=== PATIENT | male | born 1970 | race Caucasian/White ===

== ENCOUNTER 2017-10-21 09:36 | Emergency (ER) | payer OTHER ==
[2017-10-21 11:00] LABS: #Eosinphils 0.1 thou/uL (0.0-0.7); #Lymphocytes 1.1 thou/uL (1.20-3.40); #Monocytes 0.9 thou/uL (0.11-0.59); #Neutrophils 4.4 thou/uL (1.40-6.50); %Basophils 0.4 % (0.0-1.0); %Eosinophils 1.2 % (0.0-10.0); %Lymphocytes 16.8 % (21.0-51.0); %Monocytes 13.4 % (0.0-10.0); %Neutrophils 68.3 % (42.0-75.0); Hemoglobin 15.3 g/dL (14.0-18.0); Mean Corpuscular HGB CONC 34.8 g/dL (32.0-36.0); Mean Corpuscular Hemoglobin 33.4 pg (27.0-31.0); Mean Corpuscular Volume 95.9 fl (80.0-94.0); Mean Platelet Volume 7.9 fL (7.4-10.4); Platelet Count 135 thou/uL (130-400); RBC Distribution Width 12.4 % (11.5-14.5); Red Blood Cell (RBC) Count 4.59 mill/uL (4.70-6.10); White Blood Cell (WBC) Count 6.5 thou/uL (4.8-10.8)
[2017-10-21 11:23] LABS: ALT (SGPT) 24 U/L (8-55); AST (SGOT) 30 U/L (5-34); Albumin 4.1 g/dL (3.5-5.0); Alkaline Phosphatase 123 U/L (40-150); Anion Gap 14 mmol/L (10-20); BUN (Urea Nitrogen) 7 mg/dL (8.9-20.6); Bilirubin, Total 0.9 mg/dL (0.2-1.2); Calc. Creatinine Clearance 0 mL/min (70-130); Calcium 8.8 mg/dL (7.8-10.44); Carbon Dioxide 26 mmol/L (22-29); Chloride 90 mmol/L (98-107); Estimated GFR-MDRD Greater than 90; Globulin 2.4 g/dL (2.4-3.5); Glucose 106 mg/dL (70-105); Potassium 3.9 mmol/L (3.5-5.1); Protein, Total 6.5 g/dL (6.0-8.3); Sodium 126 mmol/L (136-145)
== END 2017-10-21 12:45 | disposition home or self-care (01) ==
LOC: ERS 09:36
DX: R21 Rash and other nonspecific skin eruption (principal); E87.1 Hypo-osmolality and hyponatremia; E11.9 Type 2 diabetes mellitus without complications; I10 Essential (primary) hypertension; F31.9 Bipolar disorder, unspecified; Z79.899 Other long term (current) drug therapy; Z79.84 Long term (current) use of oral hypoglycemic drugs; Z79.4 Long term (current) use of insulin
CPT/HCPCS: 36415; 80053; 85025; 99283

== ENCOUNTER 2017-11-16 05:14 | Emergency (ER) | payer OTHER | END 2017-11-16 05:56 | disposition home or self-care (01) | LOC: ERS 05:14 | DX: Z00.00 Encounter for general adult medical examination without abnormal findings (principal); E11.9 Type 2 diabetes mellitus without complications; I10 Essential (primary) hypertension; F79 Unspecified intellectual disabilities; F31.9 Bipolar disorder, unspecified; Z79.899 Other long term (current) drug therapy; Z79.4 Long term (current) use of insulin | CPT/HCPCS: 99281 ==

== ENCOUNTER 2018-01-02 12:37 | Inpatient (IN) | payer OTHER ==
[2018-01-02 13:23] LABS: #Basophils 0.1 thou/uL (0.0-0.2); #Monocytes 0.6 thou/uL (0.11-0.59); #Neutrophils 4.3 thou/uL (1.40-6.50); %Basophils 1.1 % (0.0-1.0); %Eosinophils 0.6 % (0.0-10.0); %Lymphocytes 17.5 % (21.0-51.0); %Monocytes 9.2 % (0.0-10.0); %Neutrophils 71.6 % (42.0-75.0); Mean Corpuscular HGB CONC 35.9 g/dL (32.0-36.0); Mean Corpuscular Hemoglobin 33.8 pg (27.0-31.0); Mean Corpuscular Volume 94.2 fL (78.0-98.0); Mean Platelet Volume 7.9 fL (7.4-10.4); Platelet Count 123 thou/uL (130-400); RBC Distribution Width 11.9 % (11.5-14.5); Red Blood Cell (RBC) Count 4.15 mill/uL (4.70-6.10)
[2018-01-02 13:44] LABS: ALT (SGPT) 23 U/L (8-55); AST (SGOT) 40 U/L (5-34); Albumin 3.8 g/dL (3.5-5.0); Alkaline Phosphatase 92 U/L (40-150); Anion Gap 13 mmol/L (10-20); BUN (Urea Nitrogen) 6 mg/dL (8.9-20.6); Bilirubin, Total 0.5 mg/dL (0.2-1.2); Calc. Creatinine Clearance 0 mL/min (70-130); Calcium 8.4 mg/dL (7.8-10.44); Carbon Dioxide 23 mmol/L (22-29); Chloride 86 mmol/L (98-107); Estimated GFR-MDRD Greater than 90; Glucose 99 mg/dL (70-105); Potassium 4.2 mmol/L (3.5-5.1); Protein, Total 5.8 g/dL (6.0-8.3)
[2018-01-02 13:47] LABS: Sodium 118 mmol/L (136-145)
--- NOTE | 2018-01-02 15:43 | HP ---
PRIMARY CARE PHYSICIAN: [place] call admission from [place]. His primary care physician is Dr. Dozier. REASON FOR ADMISSION: Sent from care home for severe hyponatremia. HISTORY OF PRESENT ILLNESS: A 47-year-old male who has underlying history of diabetes type 2, hypert ension, as well as underlying psychiatric problem who had routine blood test done by primary care rocio torres and patient was found with hypoglycemia, hyponatremia and that is why patient was sent to [facility] room for evaluation. Patient has caregiver with him who provides history. The patient does not have any history of nausea , vomiting and diarrhea. He was drinking normal amount of liquid. He did not have any seizure, but he appeared more confused at the care home. He was having difficulty speaking and he appeared incoh erent. It was not normal from his baseline and that is why the patient's primary care physician ashli sed him to go to emergency room for evaluation. Today, patient's sodium is 118. We are admitting th is patient to the medical floor for hyponatremia correction. Unfortunately, this patient has underlying psychiatric problem and he is not able to concentrate to g yasmani focused history and he is talking irrelevantly and coherently. REVIEW OF SYSTEMS: The following complete review of systems was negative, unless otherwise mentioned in the HPI or below: Constitutional: Weight loss or gain, ability to conduct usual activities. Skin: Rash, itching. Eyes: Double vision, pain. ENT/Mouth: Nose bleeding, neck stiffness, pain, tenderness. Cardiovascular: Palpitations, dyspnea on exertion, orthopnea. Respiratory: Shortness of breath, wheezing, cough, hemoptysis, fever or night sweats. Gastrointestinal: Poor appetite, abdominal pain, heartburn, nausea, vomiting, constipation, or diarr hea. Genitourinary: Urgency, frequency, dysuria, nocturia. Musculoskeletal: Pain, swelling. Neurologic/Psychiatric: Anxiety, depression. Allergy/Immunologic: Skin rash, bleeding tendency. Please see my HPI for pertinent positive and negative. All other review of systems reviewed and nega tive except as mentioned in the HPI. Above mentioned review of systems is not reliable due to underl leo psychiatric problem and cognitive status. PAST MEDICAL HISTORY: Diabetes type 2 on insulin, hypertension, chronic pancreatitis, mental retarda tion. PAST SURGICAL HISTORY: Reviewed and negative. PAST PSYCHIATRIC HISTORY: Bipolar disorder, intermittent explosive disorder. SOCIAL HISTORY: Patient lives in a care home. No history of tobacco, alcohol or illicit drug abuse . FAMILY HISTORY: No strong family history of premature coronary artery disease, stroke or cancer. ALLERGIES: No known drug allergy. CURRENT HOME MEDICATIONS: Depakote delayed release 500 mg twice daily, folic acid 1 mg p.o. daily, L antus 12 units subcu in the morning and 40 units at bedtime, vitamin D3 5000 unit p.o. daily, risperi done 2 mg p.o. at bedtime, NovoLog insulin 4 units 3 times daily, Cogentin 1 mg p.o. twice daily, met formin 1000 mg twice daily, Creon 1 capsule 3 times daily, lorazepam 2 mg q.6 hours, lisinopril 10 mg p.o. daily, Oxtellar XR 600 mg p.o. twice daily. EMERGENCY ROOM COURSE: Patient is getting IV fluid. PHYSICAL EXAMINATION: VITAL SIGNS: On arrival, blood pressure 142/88, pulse 74, respiratory rate 16, temperature 97.7, sat uration 97% on room air, weight 62.2 kilograms. GENERAL: Patient is currently impulsive, has slow speech. No obvious acute distress. HEAD: Normocephalic, atraumatic. EYES: Pupils are round and reactive to light. Extraocular muscle intact. ENT: Oropharynx within normal limits. Moist mucous membranes. No oral lesion, no pharyngeal erythe ma, no exudate. NECK: Supple, no JVD, no thyromegaly, no carotid bruit, no jugular venous distention. LUNGS: Clear to auscultation without any rhonchi or rales. CARDIAC: S1 and S2 regular. No murmur, no gallop, no rub. ABDOMEN: Soft, bowel sounds present, nontender, nondistended. No organomegaly, no mass, no suprapub ic tenderness. BACK: Examination unremarkable, no CVA tenderness. EXTREMITIES: Upper extremity passive movements of all joints are normal. Lower extremities: No andrew ma. Good peripheral pulsation, no calf tenderness. SKIN: No skin rash. HEMATOLOGICAL SYSTEM: No lymphadenopathy. PSYCHIATRIC: Anxious affect, impulsive. NEUROLOGIC: Grossly nonfocal examination. Patient is moving all four limbs. Speech is pressurized. SIGNIFICANT LABORATORY DATA: CBC: WBC 6.0, hemoglobin 14.0, platelet 123. BMP: Sodium 118, potass ium 4.2, chloride 86, carbon dioxide 23, anion gap 13, BUN 6, creatinine 0.68, glucose 99, calcium 8. 4. LFT: Protein 5.8, albumin 3.8, AST 40, ALT 23. ASSESSMENT AND PLAN/IMPRESSION: 1. Symptomatic hyponatremia. The patient will be admitted to medical floor. He has both sodium and chloride low, both in the same direction. At this point, we will try to give him NS at 100 mL per h our and we will repeat BMP tomorrow. We will monitor sodium every 4 hourly. If sodium does not impr ove with IV fluid, then we will consider a Nephrology evaluation. We will check urine sodium, urine creatinine, urine protein, urine osmolality, plasma osmolarity, TSH and random cortisol as a part of workup. 2. Hypoglycemia associated with diabetes type 2. Currently, patient's blood sugar runs slow. We wi ll hold on his Lantus insulin as well as metformin. We will only cover with Humalog insulin as per s liding scale. We will provide diabetic diet. 3. Anxiety, depression, bipolar disorder. We will continue his psychiatric medications, benztropine 1 mg twice daily, Depakote ER 500 mg twice daily, risperidone 2 mg p.o. at bedtime, Ativan 2 mg p.o. q.6 hourly, Cogentin 1 mg twice daily. 4. Diabetes type 2. As mentioned above because of low blood pressure, we are holding his Lantus ins ulin and metformin and we will start when blood sugar permits. 5. Hypertension. We will continue with lisinopril 10 mg p.o. daily. 6. Deep venous thrombosis prophylaxis, Lovenox 40 mg subcu daily. We will monitor platelet count. 7. Gastrointestinal prophylaxis; Pepcid 20 mg p.o. b.i.d. 8. Chronic pancreatitis. We will continue pancrease DR 1 capsule p.o. t.i.d. with meal. CODE STATUS: The patient is FULL CODE. Patient does not have any surrogate decision maker at this p oint. Disposition plan based on clinical course. We are expecting patient's stay in hospital more than 2 m idnights. Plan of care discussed with the patient and patient's java scala developer at bedside.
[2018-01-02] MEDS ORDERED: Lorazepam 1 MG TAB ONE (17:30)
[2018-01-02] MEDS ORDERED: Loperamide HCl 2 MG CAP PO PRN (18:49)
[2018-01-02] MEDS ORDERED: HumaLOG 300 UNITS/3 ML VIAL SC PRN (18:49)
[2018-01-02] MEDS ORDERED: Ondansetron ODT 4 MG TAB PO PRN (18:49)
[2018-01-02] MEDS ORDERED: HYDROcodone/Acetaminophen 5/325 mg Tablet PO PRN (18:49)
[2018-01-02] MEDS ORDERED: Mag-Al 1200 mg/1200 mg/30 ML UDCUP PO PRN (18:49)
[2018-01-02] MEDS ORDERED: Sodium Chloride 0.65% Nasal 44 ML BOT EA NARE PRN (18:49)
[2018-01-02] MEDS ORDERED: Labetalol HCl 100 MG/20 ML VIAL SLOW IVP PRN (18:49)
[2018-01-02] MEDS ORDERED: Diabetic Tussin 200 MG/10 ML UDCUP PO PRN (18:49)
[2018-01-02] MEDS ORDERED: Loratadine 10 MG TAB PO PRN (18:49)
[2018-01-02] MEDS ORDERED: Ondansetron HCl/PF 4 MG/2 ML Vial IVP PRN (18:49)
[2018-01-02] MEDS ORDERED: Milk Of Magnesia 30 ML UDCUP PO PRN (18:49)
[2018-01-02] MEDS ORDERED: Senokot 8.6 MG TAB PO PRN (18:49)
[2018-01-02] MEDS ORDERED: Hydrocerin (Eucerin) Cream 120 gm Jar TOP PRN (18:49)
[2018-01-02] MEDS ORDERED: Acetaminophen 325 MG TAB PO PRN (18:49)
[2018-01-02] MEDS ORDERED: Artificial Tears 18 DROP/0.9 ML EA EYE PRN (18:49)
[2018-01-02] MEDS ORDERED: Dextrose 5% in Water 1,000 ML IV PRN (18:49)
[2018-01-02] MEDS ORDERED: hydrALAZINE 20 MG/ML VIAL SLOW IVP PRN (18:49)
[2018-01-02] MEDS ORDERED: Chloraseptic Spray 180 ml Bottle PO PRN (18:49)
[2018-01-02] MEDS ORDERED: Dextrose 50% Abboject 50 ML SYRINGE SLOW IVP PRN (18:49)
[2018-01-02] MEDS ORDERED: Pancrelipase DR 12000 1 CAP PO SCH (19:15)
[2018-01-02 19:21] LABS: Osmolality, Serum 247 mOsm/kg (280-295)
[2018-01-02 19:30] LABS: Thyroid Stimulating Hormone 1.4338 uIU/mL (0.35-4.94)
[2018-01-02 20:28] LABS: Bilirubin Negative (Negative); Blood, Urine Negative (Negative); Clarity CLEAR (Clear); Glucose, Urine (Dipstick) 250 mg/dL (Negative); Leukocyte Negative (Negative); Nitrite Negative (Negative); Protein, Urine (Dipstick) Negative (Neg-Trace); Specific Gravity, Urine 1.006 (1.002-1.036); Urobilinogen 0.2 mg/dL (0.2-1.0); pH, Urine 7.5 (5.0-9.0)
[2018-01-02 20:33] LABS: Osmolality, Urine 175 mOsm/kg (300-900)
[2018-01-02 20:34] LABS: Bacteria/HPF None Seen HPF (None Seen); Hyaline Casts/LPF 0-3 HYALINE CAST LPF (0-3 Hyaline); RBC/HPF 0-3 HPF (0-3); Squamous Epithelial None Seen HPF (0-3); WBC/HPF None Seen HPF (0-3)
[2018-01-02] MEDS: Sodium Chloride 0.9% 1,000 ML IV SCH ×2 (20:46→23:16)
[2018-01-02] MEDS: Benztropine 1 MG TAB PO SCH (20:48)
[2018-01-02] MEDS: Famotidine 20 MG TAB PO SCH (20:48)
[2018-01-02] MEDS: Divalproex Sodium 250 MG (DR) TAB PO SCH (20:48)
[2018-01-02] MEDS ORDERED: risperiDONE 1 MG TAB PO SCH (21:00)
[2018-01-02] MEDS: Zolpidem Tartrate 5 MG TAB PO PRN ×2 (21:19→22:32)
[2018-01-02 22:37] LABS: Sodium, Urine 51 mmol/L (Not Available)
[2018-01-03 05:34] LABS: ALT (SGPT) 23 U/L (8-55); AST (SGOT) 34 U/L (5-34); Albumin 3.9 g/dL (3.5-5.0); Alkaline Phosphatase 151 U/L (40-150); Anion Gap 13 mmol/L (10-20); BUN (Urea Nitrogen) 5 mg/dL (8.9-20.6); Bilirubin, Total 0.4 mg/dL (0.2-1.2); Calc. Creatinine Clearance 136 mL/min (70-130); Carbon Dioxide 23 mmol/L (22-29); Chloride 86 mmol/L (98-107); Estimated GFR-MDRD Greater than 90; Globulin 2.3 g/dL (2.4-3.5); Glucose 209 mg/dL (70-105); Potassium 4.2 mmol/L (3.5-5.1); Protein, Total 6.2 g/dL (6.0-8.3)
[2018-01-03 05:38] LABS: Sodium 118 mmol/L (136-145)
[2018-01-03 06:36] LABS: Band 2 % (5-11); Eosinophils 2 % (0-10); Hemoglobin 13.9 g/dL (14.0-18.0); Lymphocytes 21 % (21-51); MDiff Complete? YES; Mean Corpuscular HGB CONC 35.1 g/dL (32.0-36.0); Mean Corpuscular Hemoglobin 33.4 pg (27.0-31.0); Mean Corpuscular Volume 95.4 fL (78.0-98.0); Monocytes 16 % (0-10); Neutrophil 58 % (42-75); PLT Morphology Comment Appears Decreased; Platelet Count 115 thou/uL (130-400); RBC Distribution Width 12.1 % (11.5-14.5); RBC Morphology Normal; Reactive Lymphocytes 1 % (0-10); Red Blood Cell (RBC) Count 4.15 mill/uL (4.70-6.10); White Blood Cell (WBC) Count 4.4 thou/uL (4.8-10.8)
[2018-01-03] MEDS: Sodium Chloride 0.9% 1,000 ML IV SCH (07:16)
[2018-01-03] MEDS: Lisinopril 10 MG TAB PO SCH (07:18)
[2018-01-03] MEDS: Famotidine 20 MG TAB PO SCH ×2 (07:18→21:00)
[2018-01-03] MEDS: Folic Acid 1 MG TAB PO SCH (07:18)
[2018-01-03] MEDS: Benztropine 1 MG TAB PO SCH ×2 (07:21→21:01)
[2018-01-03] MEDS: Lorazepam 1 MG TAB PO PRN ×3 (07:21→21:00)
[2018-01-03] MEDS: Divalproex Sodium 250 MG (DR) TAB PO SCH (07:21)
[2018-01-03] MEDS: Enoxaparin Sodium 40 MG/0.4 ML SYRINGE SC SCH (07:22)
[2018-01-03] MEDS ORDERED: Pancrelipase DR 12000 1 CAP PO SCH (08:00)
[2018-01-03] MEDS ORDERED: OXCARBAZEPINE 600 MG PO SCH (09:00)
[2018-01-03] MEDS ORDERED: Divalproex Sodium DR 500 MG TAB PO SCH ×2 (09:00→21:00)
[2018-01-03] MEDS ORDERED: Divalproex Sodium 250 MG (DR) TAB PO SCH (09:00)
[2018-01-03] MEDS: Pancrelipase DR 12000 1 CAP PO SCH ×3 (10:36→18:25)
[2018-01-03] MEDS: Insulin Glargine 12 UNITS in Pre-Filled Syringe 1 EACH SC SCH (10:37)
[2018-01-03] MEDS ORDERED: LIPASE PO SCH (11:30)
[2018-01-03] MEDS ORDERED: AMYLASE PO SCH (11:30)
[2018-01-03] MEDS ORDERED: PROTEASE PO SCH (11:30)
--- NOTE | 2018-01-03 11:32 | PDOC.PN ---
- Subjective Encounter Start Date: 01/03/18 Encounter Start Time: 09:00 -: old records requested/rev pt has not change in sodium, he drinks lot of plain water and ice chips - Objective Resuscitation Status: Resuscitation Status FULL:Full Resuscitation MAR Reviewed: Yes Vital Signs & Weight: Vital Signs (12 hours) Temp Pulse Resp BP BP Pulse Ox 01/03/18 08:00 97.4 F L 63 16 150/104 H 98 01/03/18 07:18 150/104 H 01/03/18 04:00 97.6 F 64 18 173/105 H 99 01/03/18 00:36 97.9 F 61 16 123/79 97 Weight Weight 160 lb 6 oz I&O: 01/02/18 01/03/18 01/04/18 06:59 06:59 06:59 Intake Total 3759 Balance 3759 Result Diagrams: 01/03/18 04:19 01/03/18 04:19 Additional Labs: Accuchecks 01/03/18 01/02/18 04:30 20:23 POC Glucose 197 H 239 H Phys Exam - Physical Examination Constitutional: NAD HEENT: PERRLA, moist MMs, sclera anicteric Neck: no JVD, supple Respiratory: no wheezing, no rales, no rhonchi Cardiovascular: RRR, no significant murmur, no rub Gastrointestinal: soft, non-tender, no distention, positive bowel sounds Musculoskeletal: no edema, pulses present Neurological: non-focal, normal sensation, moves all 4 limbs Psychiatric: normal affect Skin: no rash, normal turgor Dx/Plan (1) Hyponatremia Code(s): E87.1 - HYPO-OSMOLALITY AND HYPONATREMIA Status: Acute (2) Thrombocytopenia Code(s): D69.6 - THROMBOCYTOPENIA, UNSPECIFIED Status: Acute (3) Anxiety and depression Code(s): F41.9 - ANXIETY DISORDER, UNSPECIFIED; F32.9 - MAJOR DEPRESSIVE DISORDER, SINGLE EPISODE, UNSPECIFIED Status: Chronic (4) Bipolar disorder Code(s): F31.9 - BIPOLAR DISORDER, UNSPECIFIED Status: Chronic (5) DM type 2 (diabetes mellitus, type 2) Status: Chronic (6) Hypertension Code(s): I10 - ESSENTIAL (PRIMARY) HYPERTENSION Status: Chronic (7) Psychiatric disorder Code(s): F99 - MENTAL DISORDER, NOT OTHERWISE SPECIFIED Status: Chronic (8) Hypoglycemia Code(s): E16.2 - HYPOGLYCEMIA, UNSPECIFIED Status: Resolved - Plan cont current plan of care * suspecting psychogenic polydipsia as a cause of his hyponatremia * will need 1200 ml per day fluid restriction * will consult nephrology * medication reviewed as below * symptomatic treatment Review of Systems - Review of Systems Eyes: negative: Pain, Vision Change, Conjunctivae Inflammation, Eyelid Inflammation, Redness, Other ENT: negative: Ear Pain, Ear Discharge, Nose Pain, Nose Discharge, Nose Congestion, Mouth Pain, Mouth Swelling, Throat Pain, Throat Swelling, Other Respiratory: negative: Cough, Dry, Shortness of Breath, Hemoptysis, SOB with Excertion, Pleuritic Pain, Sputum, Wheezing Cardiovascular: negative: chest pain, palpitations, orthopnea, paroxysmal nocturnal dyspnea, edema, light headedness, other Gastrointestinal: negative: Nausea, Vomiting, Abdominal Pain, Diarrhea, Constipation, Melena, Hematochezia, Other Genitourinary: negative: Dysuria, Frequency, Incontinence, Hematuria, Retention , Other Musculoskeletal: negative: Neck Pain, Shoulder Pain, Arm Pain, Back Pain, Hand Pain, Leg Pain, Foot Pain, Other Skin: negative: Rash, Lesions, Neftaly, Bruising, Other Other: not completely reliable due to his underlying psychiatry problems - Medications/Allergies Allergies/Adverse Reactions: Allergies Allergy/AdvReac Type Severity Reaction Status Date / Time No Known Drug Allergies Allergy Verified 08/27/16 03:21 Medications: Current Medications Acetaminophen (Tylenol) 650 mg PO Q4H PRN PRN Reason: Headache/Fever or Pain Hydrocodone Bitart/Acetaminophen ([place] 5/325) 1 tab PO Q4H PRN PRN Reason: Moderate Pain (4-6) Al Hydroxide/Mg Hydroxide (Maalox) 30 ml PO Q6H PRN PRN Reason: Heartburn or Indigestion Lipase/Protease/Amylase ([place] [id number]) 2 cap PO TID-WM [facility] Last Admin: 01/03/18 10:36 Dose: 2 cap Artificial Tears (Tears Naturale) 0 drop EA EYE PRN PRN PRN Reason: Dry Eyes Benztropine Mesylate (Cogentin) 1 mg PO Q12HR [facility] Last Admin: 01/03/18 07:21 Dose: 1 mg Cholecalciferol (Vitamin D3) 5,000 units PO DAILY [facility] Last Admin: 01/03/18 07:17 Dose: 5,000 units Dextrose/Water (Dextrose 50%) 25 gm SLOW IVP PRN PRN PRN Reason: Hypoglycemia Divalproex Sodium (Depakote) 500 mg PO 0900 [facility] Stop: 01/03/18 12:00 Last Admin: 01/03/18 10:40 Dose: 500 mg Divalproex Sodium (Depakote) 1,000 mg PO 2100 [facility] Emollient Cream (Hydrocerin Cream) 0 gm TOP BIDPRN PRN PRN Reason: Dry Skin Enoxaparin Sodium (Lovenox) 40 mg SC 0900 [facility] Last Admin: 01/03/18 07:22 Dose: Not Given Famotidine (Pepcid) 20 mg PO BID [facility] Last Admin: 01/03/18 07:18 Dose: 20 mg Folic Acid (Folvite) 1 mg PO DAILY [facility] Last Admin: 01/03/18 07:18 Dose: 1 mg Glucagon (Glucagon) 1 mg IM PRN PRN PRN Reason: Hypoglycemia Guaifenesin (Robitussin Sf) 200 mg PO Q4H PRN PRN Reason: Cough Hydralazine HCl (Apresoline) 10 mg SLOW IVP Q4H PRN PRN Reason: Systolic BP > 180 Dextrose/Water (D5w) 1,000 mls @ 0 mls/hr IV .Q0M PRN; As Directed PRN Reason: Hypoglycemia Insulin Glargine 12 units/ (Miscellaneous Medication) 0.12 mls @ 0 mls/hr SC [facility] PRN Reason: As Directed Last Admin: 01/03/18 10:37 Dose: 0.12 mls Insulin Glargine 4 units/ (Device) 0.04 mls @ 0 mls/hr SC [facility] PRN Reason: As Directed Insulin Human Lispro (Humalog) 0 units SC .MODERATE SLIDING SC PRN PRN Reason: Moderate Correctional Scale Insulin Human Lispro (Humalog) 0 units SC .BEDTIME SLIDING SC PRN PRN Reason: Bedtime Correctional Scale Last Admin: 01/02/18 20:49 Dose: 2 unit Labetalol HCl (Normodyne) 20 mg SLOW IVP Q4H PRN PRN Reason: Systolic BP > 180 Lisinopril (Zestril) 10 mg PO DAILY [facility] Last Admin: 01/03/18 07:18 Dose: 10 mg Loperamide HCl (Imodium) 2 mg PO PRN PRN PRN Reason: Diarrhea/Loose Stools Loratadine (Claritin) 10 mg PO DAILYPRN PRN PRN Reason: Sinus Symptoms Lorazepam (Ativan) 2 mg PO Q4H PRN PRN Reason: Anxiety/Agitation Last Admin: 01/03/18 07:21 Dose: 2 mg Magnesium Hydroxide (Milk Of Magnesium) 30 ml PO DAILYPRN PRN PRN Reason: Constipation Ondansetron HCl (Zofran Odt) 4 mg PO Q6H PRN PRN Reason: Nausea/Vomiting Ondansetron HCl (Zofran) 4 mg IVP Q6H PRN PRN Reason: Nausea/Vomiting (Oxcarbazepine [ Oxtellar Xr] 600 Mg) Hm Med 0 each PO BID [facility] Phenol (Chloraseptic [place] 180 Ml Bot) 0 ml PO PRN PRN PRN Reason: Sore Throat Risperidone (Risperidone) 4 mg PO HS [facility] Senna (Senokot) 2 tab PO HSPRN PRN PRN Reason: Constipation Sodium Chloride ([place] Nasal [place] 0.65%) 0 ml EA NARE QIDPRN PRN PRN Reason: Nasal Congestion Zolpidem Tartrate (Ambien) 5 mg PO HSPRN PRN PRN Reason: Insomnia Last Admin: 01/02/18 22:32 Dose: 5 mg
[2018-01-03 12:25] LABS: Sodium 125 mmol/L (136-145)
[2018-01-03] MEDS: HumaLOG 300 UNITS/3 ML VIAL SC PRN (12:45)
[2018-01-03] MEDS ORDERED: Ziprasidone 20 MG VIAL IM PRN (13:32)
[2018-01-03] MEDS ORDERED: Sterile Water 10 ML VIAL FS PRN (13:40)
[2018-01-03 18:25] LABS: Sodium 130 mmol/L (136-145)
[2018-01-03] MEDS ORDERED: risperiDONE 1 MG TAB PO SCH (21:00)
[2018-01-03] MEDS ORDERED: INSULIN GLARGINE SC SCH (21:00)
[2018-01-03] MEDS: Zolpidem Tartrate 5 MG TAB PO PRN (21:46)
--- NOTE | 2018-01-03 22:03 | CON ---
DATE OF CONSULTATION: 01/03/2018 CONSULTING PHYSICIAN: Edie Eden M.D. REQUESTING PHYSICIAN: Dr. Schuster. REASON FOR CONSULTATION: Severe hyponatremia. IMPRESSION: Severe hyponatremia. 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 PLAN: 1. Restrict the free water. 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 2. Monitor sodium level closely. HISTORY OF PRESENT ILLNESS: History is that of 47-year-old gentleman sent from a assisted with sev ere hyponatremia. The patient does have significant psych history. Going by the urine chemistry, th is is likely psychogenic polydipsia. Due to the severity of this hyponatremia, decision has been jeane en to involve Renal in the management of this case. Could not get much of any comprehensive history from this patient. PAST MEDICAL HISTORY: Significant for type 2 diabetes, hypertension, chronic pancreatitis and mental retardation. MEDICATIONS: Reviewed and as documented on [facility]. ALLERGIES: No known drug allergy. FAMILY HISTORY: None significantly related to presenting illness. PHYSICAL EXAMINATION: VITAL SIGNS: Patient noted with the following vital signs. Blood pressure was 149/99, afebrile, tem perature 97.2, pulse 72, respiratory rate 16, O2 sat 98%. HEENT: Unremarkable. Moist oral mucosa. NECK: Supple. No conjunctival injection or icterus. CARDIOVASCULAR SYSTEM: First and second heart sounds were heard. RESPIRATORY SYSTEM: Clear to auscultation. DIGESTIVE SYSTEM: Revealed a benign abdomen. EXTREMITIES: No peripheral edema. SUMMARY: A 47-year-old gentleman who is here with severe hyponatremia likely in the context of psych ogenic polydipsia. Thank you for this consultation. We will follow with you.
[2018-01-04 00:56] LABS: Sodium 129 mmol/L (136-145)
[2018-01-04] MEDS: HumaLOG 300 UNITS/3 ML VIAL SC PRN ×2 (05:39→12:45)
[2018-01-04 06:13] LABS: Sodium 137 mmol/L (136-145)
[2018-01-04] MEDS: Pancrelipase DR 12000 1 CAP PO SCH ×2 (08:25→12:45)
[2018-01-04] MEDS: Benztropine 1 MG TAB PO SCH (08:26)
[2018-01-04] MEDS: Famotidine 20 MG TAB PO SCH (08:27)
[2018-01-04] MEDS: Folic Acid 1 MG TAB PO SCH (08:27)
[2018-01-04] MEDS: Lisinopril 10 MG TAB PO SCH (08:28)
[2018-01-04] MEDS: Lorazepam 1 MG TAB PO PRN (08:30)
[2018-01-04] MEDS: Insulin Glargine 12 UNITS in Pre-Filled Syringe 1 EACH SC SCH (09:38)
[2018-01-04] MEDS: Enoxaparin Sodium 40 MG/0.4 ML SYRINGE SC SCH (09:39)
--- NOTE | 2018-01-04 10:17 | PDOC.PN ---
- Subjective Encounter Start Date: 01/04/18 Encounter Start Time: 09:20 pt is walking around unit, he has improved sodium, he is baseline - Objective Resuscitation Status: Resuscitation Status FULL:Full Resuscitation MAR Reviewed: Yes Vital Signs & Weight: Vital Signs (12 hours) Temp Pulse Resp BP Pulse Ox 01/04/18 10:10 163/100 H 01/04/18 08:00 98.0 F 78 16 172/96 H 100 01/04/18 04:27 98.0 F 80 18 159/99 H 99 01/04/18 00:31 97.6 F 69 16 131/87 98 Weight Weight 160 lb 6 oz I&O: 01/03/18 01/04/18 01/05/18 06:59 06:59 06:59 Intake Total 3759 2460 Output Total 700 Balance 3759 1760 Result Diagrams: 01/03/18 04:19 01/04/18 05:52 Additional Labs: Accuchecks 01/04/18 01/03/18 01/03/18 04:36 20:10 18:06 POC Glucose 281 H 202 H 78 01/03/18 12:07 POC Glucose 360 H Phys Exam - Physical Examination Constitutional: NAD HEENT: PERRLA, moist MMs, sclera anicteric Neck: no JVD, supple Respiratory: no wheezing, no rales, no rhonchi Cardiovascular: RRR, no significant murmur, no rub Gastrointestinal: soft, non-tender, no distention, positive bowel sounds Musculoskeletal: no edema, pulses present Neurological: non-focal, normal sensation, moves all 4 limbs Lymphatic: no nodes Psychiatric: normal affect Skin: no rash, normal turgor Dx/Plan (1) Hyponatremia Code(s): E87.1 - HYPO-OSMOLALITY AND HYPONATREMIA Status: Acute (2) Thrombocytopenia Code(s): D69.6 - THROMBOCYTOPENIA, UNSPECIFIED Status: Acute (3) Anxiety and depression Code(s): F41.9 - ANXIETY DISORDER, UNSPECIFIED; F32.9 - MAJOR DEPRESSIVE DISORDER, SINGLE EPISODE, UNSPECIFIED Status: Chronic (4) Bipolar disorder Code(s): F31.9 - BIPOLAR DISORDER, UNSPECIFIED Status: Chronic (5) DM type 2 (diabetes mellitus, type 2) Status: Chronic (6) Hypertension Code(s): I10 - ESSENTIAL (PRIMARY) HYPERTENSION Status: Chronic (7) Psychiatric disorder Code(s): F99 - MENTAL DISORDER, NOT OTHERWISE SPECIFIED Status: Chronic (8) Hypoglycemia Code(s): E16.2 - HYPOGLYCEMIA, UNSPECIFIED Status: Resolved - Plan cont current plan of care * medication reviewed as below * symptomatic treatment * stable for discharge to [facility] * fluid restriction is very important to prevent readmission. Review of Systems - Review of Systems ENT: negative: Ear Pain, Ear Discharge, Nose Pain, Nose Discharge, Nose Congestion, Mouth Pain, Mouth Swelling, Throat Pain, Throat Swelling, Other Respiratory: negative: Cough, Dry, Shortness of Breath, Hemoptysis, SOB with Excertion, Pleuritic Pain, Sputum, Wheezing Cardiovascular: negative: chest pain, palpitations, orthopnea, paroxysmal nocturnal dyspnea, edema, light headedness, other Genitourinary: negative: Dysuria, Frequency, Incontinence, Hematuria, Retention , Other Musculoskeletal: negative: Neck Pain, Shoulder Pain, Arm Pain, Back Pain, Hand Pain, Leg Pain, Foot Pain, Other Other: not reliable due to her psychiatry illness - Medications/Allergies Allergies/Adverse Reactions: Allergies Allergy/AdvReac Type Severity Reaction Status Date / Time No Known Drug Allergies Allergy Verified 08/27/16 03:21 Medications: Current Medications Acetaminophen (Tylenol) 650 mg PO Q4H PRN PRN Reason: Headache/Fever or Pain Last Admin: 01/03/18 21:00 Dose: 650 mg Hydrocodone Bitart/Acetaminophen ([place] 5/325) 1 tab PO Q4H PRN PRN Reason: Moderate Pain (4-6) Al Hydroxide/Mg Hydroxide (Maalox) 30 ml PO Q6H PRN PRN Reason: Heartburn or Indigestion Lipase/Protease/Amylase ([place] [id number]) 2 cap PO TID-WM [facility] Last Admin: 01/04/18 08:25 Dose: 2 cap Artificial Tears (Tears Naturale) 0 drop EA EYE PRN PRN PRN Reason: Dry Eyes Benztropine Mesylate (Cogentin) 1 mg PO Q12HR [facility] Last Admin: 01/04/18 08:26 Dose: 1 mg Cholecalciferol (Vitamin D3) 5,000 units PO DAILY [facility] Last Admin: 01/04/18 08:26 Dose: 5,000 units Dextrose/Water (Dextrose 50%) 25 gm SLOW IVP PRN PRN PRN Reason: Hypoglycemia Divalproex Sodium (Depakote) 1,000 mg PO 2100 [facility] [place] Last Admin: 01/03/18 21:01 Dose: 1,000 mg Emollient Cream (Hydrocerin Cream) 0 gm TOP BIDPRN PRN PRN Reason: Dry Skin Enoxaparin Sodium (Lovenox) 40 mg SC 0900 [facility] Last Admin: 01/04/18 09:39 Dose: Not Given Famotidine (Pepcid) 20 mg PO BID [facility] Last Admin: 01/04/18 08:27 Dose: 20 mg Folic Acid (Folvite) 1 mg PO DAILY [facility] Last Admin: 01/04/18 08:27 Dose: 1 mg Glucagon (Glucagon) 1 mg IM PRN PRN PRN Reason: Hypoglycemia Guaifenesin (Robitussin Sf) 200 mg PO Q4H PRN PRN Reason: Cough Hydralazine HCl (Apresoline) 10 mg SLOW IVP Q4H PRN PRN Reason: Systolic BP > 180 Dextrose/Water (D5w) 1,000 mls @ 0 mls/hr IV .Q0M PRN; As Directed PRN Reason: Hypoglycemia Insulin Glargine 12 units/ (Miscellaneous Medication) 0.12 mls @ 0 mls/hr SC QAM [facility] PRN Reason: As Directed Last Admin: 01/04/18 09:38 Dose: 0.12 mls Insulin Glargine 4 units/ (Device) 0.04 mls @ 0 mls/hr SC [facility] PRN Reason: As Directed Last Admin: 01/03/18 21:02 Dose: 0.04 mls Insulin Human Lispro (Humalog) 0 units SC .MODERATE SLIDING SC PRN PRN Reason: Moderate Correctional Scale Last Admin: 01/04/18 05:39 Dose: 6 unit Insulin Human Lispro (Humalog) 0 units SC .BEDTIME SLIDING SC PRN PRN Reason: Bedtime Correctional Scale Last Admin: 01/02/18 20:49 Dose: 2 unit Labetalol HCl (Normodyne) 20 mg SLOW IVP Q4H PRN PRN Reason: Systolic BP > 180 Lisinopril (Zestril) 10 mg PO DAILY [facility] Last Admin: 01/04/18 08:28 Dose: 10 mg Loperamide HCl (Imodium) 2 mg PO PRN PRN PRN Reason: Diarrhea/Loose Stools Loratadine (Claritin) 10 mg PO DAILYPRN PRN PRN Reason: Sinus Symptoms Lorazepam (Ativan) 2 mg PO Q4H PRN PRN Reason: Anxiety/Agitation Last Admin: 01/04/18 08:30 Dose: 2 mg Magnesium Hydroxide (Milk Of Magnesium) 30 ml PO DAILYPRN PRN PRN Reason: Constipation Ondansetron HCl (Zofran Odt) 4 mg PO Q6H PRN PRN Reason: Nausea/Vomiting Ondansetron HCl (Zofran) 4 mg IVP Q6H PRN PRN Reason: Nausea/Vomiting (Oxcarbazepine [ Oxtellar Xr] 600 Mg) Hm Med 0 each PO BID [facility] Phenol (Chloraseptic [place] 180 Ml Bot) 0 ml PO PRN PRN PRN Reason: Sore Throat Risperidone (Risperidone) 4 mg PO HS [facility] Last Admin: 01/03/18 21:04 Dose: 4 mg Senna (Senokot) 2 tab PO HSPRN PRN PRN Reason: Constipation Sodium Chloride ([place] Nasal [place] 0.65%) 0 ml EA NARE QIDPRN PRN PRN Reason: Nasal Congestion Sterile Water (Water For Injection) 10 ml FS Q4H PRN PRN Reason: TO RECONSTITUTE ZIPRASIDONE Last Admin: 01/03/18 13:47 Dose: 10 ml Ziprasidone (Geodon) 20 mg IM Q4H PRN PRN Reason: Agitation Last Admin: 01/03/18 13:47 Dose: 20 mg Zolpidem Tartrate (Ambien) 5 mg PO HSPRN PRN PRN Reason: Insomnia Last Admin: 01/03/18 21:46 Dose: 5 mg
--- NOTE | 2018-01-04 11:17 | DIS ---
DATE OF ADMISSION: 01/02/2018 DATE OF DISCHARGE: 01/04/2018 PRIMARY CARE PHYSICIAN: Dr. Mark Dozier in [place] DISCHARGE DISPOSITION: [facility]P. PRIMARY DISCHARGE DIAGNOSES: 1. 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 2. Mild thrombocytopenia. 3. Hypoglycemia, on admission, resolved. SECONDARY DISCHARGE DIAGNOSES: Anxiety/depression; bipolar disorder; diabetes, type 2; hypertension; chronic pancreatitis. PRIMARY PROCEDURE/OPERATION: None. RADIOLOGICAL INVESTIGATION: None. SIGNIFICANT LABORATORY DATA: WBC 4.4, hemoglobin 13.9, platelets 115. Sodium 137, potassium 4.2, BU N 5, creatinine 0.69, calcium 9.0, AST 34, ALT 23, alkaline phosphatase 151, albumin 3.9. TSH 1.43, random cortisol 8.20. Urinalysis normal. Urine osmolality 175, urine creatinine less than 20, urine sodium 51. DISCHARGE MEDICATIONS: The patient will continue all his previous home medications, Cogentin 1 mg p. o. b.i.d., vitamin D3 10,000 units p.o. Friday, Friday, Friday, , Friday, Depakote DR 100 0 mg p.o. b.i.d., folic acid 1 mg p.o. daily, Humalog insulin 4 units subcu p.c., Lantus insulin 12 u nits in the morning and 40 units at bedtime, Creon DR 1 capsule p.o. a.c., lisinopril 10 mg p.o. myrna y, Ativan 2 mg p.o. q.i.d., metformin 1000 mg p.o. b.i.d., oxcarbazepine XR 600 mg p.o. b.i.d., rispe ridone 4 mg p.o. at bedtime. CONTRAINDICATIONS: None. CODE STATUS: FULL CODE. INPATIENT CONSULTANTS: Dr. Irizarry was following while in the hospital. TEST RESULTS PENDING ON DISCHARGE: None. ALLERGIES: No known drug allergy. DISCHARGE PLAN: Post hospital, the patient will be discharged back to [facility], and subsequently, he will follow up with primary care physician. HOSPITAL COURSE: This is a 47-year-old male, who was admitted by me on 01/02/2018. This patient opal es at [facility] and he has underlying psychiatric problem with anxiety, depression, bipolar disorder . He has a habit of drinking plenty of water and ice chips. Primary care physician did routine bloo d test, because he was more confused than his baseline and his sodium was 116 and he had in our hospi marine 118. We admitted him to medical floor. We did hyponatremia workup, and based on that, it was co nsistent with a psychogenic polydipsia. We started fluid restriction while in hospital and his sodiu m improved to normal. Today, the patient is ambulatory. He is walking around the unit. He is medic ally stable. He had hypoglycemia on admission that is also resolved. We are not making any changes in his discharge medication. He will resume all his previous medications. The patient is seen and examined at bedside today. Please see my progress note from today for furthe r detail. Total time spent providing discharge for this patient is 31 minutes.
[2018-01-04 13:30] VITALS: BP 152/86; TEMP 98.3
== END 2018-01-04 13:10 | disposition home or self-care (01) | DRG 641 ==
LOC: ERS 12:37 → T4-A 14:00
PROVIDERS: ADMIT Internal Medicine; ATTEND Internal Medicine
DX: E87.1 Hypo-osmolality and hyponatremia (principal); K86.1 Other chronic pancreatitis; D69.6 Thrombocytopenia, unspecified; F41.9 Anxiety disorder, unspecified; F32.9 Major depressive disorder, single episode, unspecified; I10 Essential (primary) hypertension; F99 Mental disorder, not otherwise specified; E11.649 Type 2 diabetes mellitus with hypoglycemia without coma; R45.1 Restlessness and agitation; F79 Unspecified intellectual disabilities; Z79.4 Long term (current) use of insulin; R63.1 Polydipsia
CPT/HCPCS: 36415; 36416; 80053; 81001; 82533; 82570; 83930; 83935; 84295; 84300; 84443; 85025; 96360; 96361; A4216; J0360; J1650; J3486

== ENCOUNTER 2018-01-12 13:11 | Emergency (ER) | payer OTHER | END 2018-01-12 14:37 | disposition home or self-care (01) | LOC: ERS 13:11 | DX: Z00.00 Encounter for general adult medical examination without abnormal findings (principal); E11.9 Type 2 diabetes mellitus without complications; I10 Essential (primary) hypertension; F31.9 Bipolar disorder, unspecified; Z79.4 Long term (current) use of insulin; Z79.899 Other long term (current) drug therapy | CPT/HCPCS: 99283 ==

== ENCOUNTER 2018-01-14 21:15 | Inpatient (IN) | payer OTHER ==
[2018-01-14 21:44] LABS: Bilirubin Negative (Negative); Blood, Urine Negative (Negative); Clarity CLEAR (Clear); Glucose, Urine (Dipstick) Negative (Negative); Leukocyte Negative (Negative); Nitrite Negative (Negative); Protein, Urine (Dipstick) Negative (Neg-Trace); Specific Gravity, Urine 1.005 (1.002-1.036); Urobilinogen 0.2 mg/dL (0.2-1.0)
[2018-01-14 21:51] LABS: #Basophils 0.1 thou/uL (0.0-0.2); #Eosinphils 0.1 thou/uL (0.0-0.7); #Lymphocytes 1.9 thou/uL (1.20-3.40); #Monocytes 0.8 thou/uL (0.11-0.59); #Neutrophils 4.3 thou/uL (1.40-6.50); %Eosinophils 1.8 % (0.0-10.0); %Lymphocytes 26.4 % (21.0-51.0); %Monocytes 10.6 % (0.0-10.0); %Neutrophils 60.3 % (42.0-75.0); Hemoglobin 14.9 g/dL (14.0-18.0); Mean Corpuscular HGB CONC 36.2 g/dL (32.0-36.0); Mean Corpuscular Hemoglobin 34.1 pg (27.0-31.0); Mean Corpuscular Volume 94.4 fL (78.0-98.0); Mean Platelet Volume 7.8 fL (7.4-10.4); Platelet Count 123 thou/uL (130-400); RBC Distribution Width 11.9 % (11.5-14.5); Red Blood Cell (RBC) Count 4.36 mill/uL (4.70-6.10); White Blood Cell (WBC) Count 7.2 thou/uL (4.8-10.8)
[2018-01-14 22:04] LABS: ALT (SGPT) 14 U/L (8-55); AST (SGOT) 22 U/L (5-34); Acetaminophen Less than 6.0 mcg/mL (10.0-30.0); Albumin 4.1 g/dL (3.5-5.0); Alcohol Less than 10 mg/dL (Less than 10); Alkaline Phosphatase 84 U/L (40-150); Anion Gap 13 mmol/L (10-20); BUN (Urea Nitrogen) 5 mg/dL (8.9-20.6); Bilirubin, Total 0.5 mg/dL (0.2-1.2); Calc. Creatinine Clearance 0 mL/min (70-130); Calcium 8.6 mg/dL (7.8-10.44); Carbon Dioxide 22 mmol/L (22-29); Chloride 87 mmol/L (98-107); Estimated GFR-MDRD Greater than 90; Globulin 2.2 g/dL (2.4-3.5); Glucose 138 mg/dL (70-105); Potassium 3.9 mmol/L (3.5-5.1); Protein, Total 6.3 g/dL (6.0-8.3); Salicylate Less than 8.0 mg/dL (15.0-30.0)
[2018-01-14 22:05] LABS: Amphetamine Not Detected (NotDetected); Barbiturates Screen Not Detected (NotDetected); Benzodiazepine Screen Detected (NotDetected); Cocaine Metabolite Screen Not Detected (NotDetected); Medtox Control Line Valid? VALID (VALID); Medtox Reader # READER 1; Methadone Not Detected (NotDetected); Methamphetamine Not Detected (NotDetected); Opiate Screen Not Detected (NotDetected); Oxycodone Screen Not Detected (NotDetected); Phencyclidine (PCP) Not Detected (NotDetected); THC/Cannabinoid Screen Not Detected (NotDetected); Tricyclic Screen Not Detected (NotDetected)
[2018-01-14 22:26] LABS: Sodium 118 mmol/L (136-145)
[2018-01-15] MEDS ORDERED: Acetaminophen 325 MG TAB PO PRN (01:01)
[2018-01-15] MEDS ORDERED: Ondansetron HCl/PF 4 MG/2 ML Vial IVP PRN (01:01)
[2018-01-15 02:03] LABS: Osmolality, Serum 244 mOsm/kg (280-295)
[2018-01-15 02:07] LABS: Anion Gap 14 mmol/L (10-20); BUN (Urea Nitrogen) 5 mg/dL (8.9-20.6); Calc. Creatinine Clearance 0 mL/min (70-130); Calcium 9.1 mg/dL (7.8-10.44); Carbon Dioxide 22 mmol/L (22-29); Chloride 88 mmol/L (98-107); Estimated GFR-MDRD Greater than 90; Glucose 106 mg/dL (70-105); Potassium 3.6 mmol/L (3.5-5.1); Sodium 120 mmol/L (136-145)
[2018-01-15] MEDS ORDERED: Dextrose 50% Abboject 50 ML SYRINGE SLOW IVP PRN (03:23)
[2018-01-15] MEDS ORDERED: Dextrose 5% in Water 1,000 ML IV PRN (03:23)
[2018-01-15 05:04] LABS: Potassium, Urine Less than 10.0 mmol/L; Sodium, Urine 65 mmol/L (Not Available)
[2018-01-15 05:14] VITALS: BMI 28.4
[2018-01-15 05:30] LABS: Osmolality, Urine 192 mOsm/kg (300-900)
[2018-01-15 06:26] LABS: #Eosinphils 0.1 thou/uL (0.0-0.7); #Lymphocytes 1.3 thou/uL (1.20-3.40); #Monocytes 0.9 thou/uL (0.11-0.59); #Neutrophils 5.3 thou/uL (1.40-6.50); %Basophils 0.4 % (0.0-1.0); %Eosinophils 1.6 % (0.0-10.0); %Lymphocytes 17.4 % (21.0-51.0); %Monocytes 11.9 % (0.0-10.0); %Neutrophils 68.7 % (42.0-75.0); Hemoglobin 14.1 g/dL (14.0-18.0); Mean Corpuscular HGB CONC 35.8 g/dL (32.0-36.0); Mean Corpuscular Hemoglobin 34.1 pg (27.0-31.0); Mean Corpuscular Volume 95.2 fL (78.0-98.0); Platelet Count 107 thou/uL (130-400); RBC Distribution Width 12.1 % (11.5-14.5); Red Blood Cell (RBC) Count 4.12 mill/uL (4.70-6.10); White Blood Cell (WBC) Count 7.6 thou/uL (4.8-10.8)
[2018-01-15 06:51] LABS: Anion Gap 15 mmol/L (10-20); BUN (Urea Nitrogen) 4 mg/dL (8.9-20.6); Calc. Creatinine Clearance 138 mL/min (70-130); Calcium 8.8 mg/dL (7.8-10.44); Carbon Dioxide 22 mmol/L (22-29); Chloride 86 mmol/L (98-107); Estimated GFR-MDRD Greater than 90; Glucose 153 mg/dL (70-105); Potassium 4.1 mmol/L (3.5-5.1)
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
[2018-01-15 06:56] LABS: Sodium 119 mmol/L (136-145)
[2018-01-15] MEDS ORDERED: LIPASE PO SCH (07:30)
[2018-01-15] MEDS ORDERED: AMYLASE PO SCH (07:30)
[2018-01-15] MEDS ORDERED: PROTEASE PO SCH (07:30)
[2018-01-15] MEDS: Enoxaparin Sodium 40 MG/0.4 ML SYRINGE SC SCH (08:11)
[2018-01-15] MEDS: risperiDONE 1 MG TAB PO SCH ×2 (08:12→19:47)
[2018-01-15] MEDS: Pancrelipase DR 12000 1 CAP PO SCH ×3 (08:12→17:34)
[2018-01-15] MEDS: OXcarbazepine 300 MG TAB PO SCH ×2 (08:12→19:47)
[2018-01-15] MEDS: Benztropine 1 MG TAB PO SCH ×2 (08:13→19:47)
[2018-01-15] MEDS: Lisinopril 10 MG TAB PO SCH (08:13)
[2018-01-15] MEDS: Divalproex Sodium DR 500 MG TAB PO SCH ×2 (08:13→19:47)
[2018-01-15] MEDS: Lorazepam 1 MG TAB PO SCH ×4 (08:13→19:46)
[2018-01-15] MEDS: HumaLOG 300 UNITS/3 ML VIAL SC PRN ×2 (11:12→17:34)
--- NOTE | 2018-01-15 11:40 | PDOC.PN ---
- Subjective Encounter Start Date: 01/15/18 Encounter Start Time: 11:30 Subjective: f/u for hyponatremia likely due to psychogenic polydipsia. No new complaint -: but states he wants to go back to a different care home after d/c. - Objective MAR Reviewed: Yes Vital Signs & Weight: Vital Signs (12 hours) Temp Pulse Resp BP Pulse Ox 01/15/18 11:37 97.6 F 92 14 140/91 H 99 01/15/18 08:00 97.2 F L 90 16 99 01/15/18 07:45 97.2 F L 90 16 145/79 H 99 01/15/18 03:23 98 Weight Weight 160 lb 9.6 oz Result Diagrams: 01/15/18 05:47 01/15/18 05:47 Additional Labs: Accuchecks 01/15/18 10:54 POC Glucose 317 H Laboratory Tests 01/14/18 01/14/18 01/14/18 21:31 21:31 21:34 Sodium Serum Osmolality 244 L* Urine Osmolality 192 L Urine Creatinine Less than 20.00 L Urine Sodium 65 01/14/18 01/15/18 21:37 01:41 Sodium 118 L* 120 L Serum Osmolality Urine Osmolality Urine Creatinine Urine Sodium EKG Reviewed by me: Yes (Tele - SR) Phys Exam - Physical Examination Constitutional: NAD HEENT: PERRLA, sclera anicteric, oral pharynx no lesions Neck: no nodes, no JVD, supple, full ROM Respiratory: no wheezing, no rales, no rhonchi, clear to auscultation bilateral S1, S2 Cardiovascular: RRR, no significant murmur, no rub, gallop Gastrointestinal: soft, non-tender, no distention, positive bowel sounds Musculoskeletal: no edema, pulses present Neurological: normal sensation, moves all 4 limbs flat affect Skin: no rash, normal turgor, cap refill <2 seconds Dx/Plan (1) Hyponatremia Code(s): E87.1 - HYPO-OSMOLALITY AND HYPONATREMIA Status: Acute Comment: Secondary to #2, fluid restriction, serial Na+ (2) Psychogenic polydipsia Code(s): R63.1 - POLYDIPSIA; F54 - [employer] W DISORD OR DIS CLASSD ELSWHR Status: Chronic Comment: Fluid restriction 1.2L/day (3) Bipolar disorder Code(s): F31.9 - BIPOLAR DISORDER, UNSPECIFIED Status: Chronic Comment: Continue Risperdal, supportive mgmt, consider [facility] evaluation (4) Hypertension Code(s): I10 - ESSENTIAL (PRIMARY) HYPERTENSION Status: Chronic Comment: Labile, resume home BP regimen, serial monitoring - Plan elementary school social worker, out of bed/ambulate, DVT proph w/SCDs Stable overall -: Continue fluid restriction 1.2L/24h -: Resume home Lantus/Metformin -: CM and MR consult -: AM lab: BMP * .
[2018-01-15 13:52] LABS: Anion Gap 15 mmol/L (10-20); BUN (Urea Nitrogen) 5 mg/dL (8.9-20.6); Calc. Creatinine Clearance 121 mL/min (70-130); Calcium 9.1 mg/dL (7.8-10.44); Carbon Dioxide 21 mmol/L (22-29); Chloride 87 mmol/L (98-107); Estimated GFR-MDRD Greater than 90; Glucose 359 mg/dL (70-105); Potassium 4.6 mmol/L (3.5-5.1)
[2018-01-15 13:54] LABS: Sodium 118 mmol/L (136-145)
[2018-01-15 15:23] LABS: Sodium 118 mmol/L (136-145)
[2018-01-15] MEDS: metFORMIN 500 MG TAB PO SCH (17:34)
[2018-01-15 19:33] LABS: Anion Gap 16 mmol/L (10-20); BUN (Urea Nitrogen) 5 mg/dL (8.9-20.6); Calc. Creatinine Clearance 119 mL/min (70-130); Calcium 9.4 mg/dL (7.8-10.44); Carbon Dioxide 20 mmol/L (22-29); Chloride 90 mmol/L (98-107); Estimated GFR-MDRD Greater than 90; Glucose 269 mg/dL (70-105); Potassium 4.2 mmol/L (3.5-5.1); Sodium 122 mmol/L (136-145)
[2018-01-15] MEDS: Insulin Glargine 4 UNITS in Pre-Filled Syringe 1 EACH SC SCH (19:46)
[2018-01-15] MEDS ORDERED: risperiDONE 1 MG TAB PO SCH (21:00)
--- NOTE | 2018-01-16 04:39 | CON ---
DATE OF CONSULTATION: 01/15/2018 CONSULTING PHYSICIAN: Dr. Edie Eden. REQUESTING PHYSICIAN: Dr. Pinzon. REASON FOR CONSULTATION: Severe hyponatremia. IMPRESSION: Severe hyponatremia. This is in the context of psychogenic polydipsia. PLAN: Fluid restriction to about 2 liters in 24 hours. This could be a little bit challenging as nnamdi velásquez has already used to drinking a lot and as his sodium level improves, we will begin to liberaliz e the p.o. intake. HISTORY OF PRESENT ILLNESS: This is a 47-year-old gentleman with mental retardation who always prese nts here with severe hyponatremia in the context of psychogenic polydipsia. The patient was recently here in the hospital with similar symptoms and after improvement of the sodium, the patient was disc harged and now the patient is back with severe hyponatremia. As a result of this, the decision has b een taken to involve [facility] in the management of this case. Patient with mental status change. PAST MEDICAL HISTORY: Significant for diabetes, hypertension, mental retardation, pancreatic calcifi cation, hypoproteinemia, psychogenic polydipsia. MEDICATIONS: Reviewed as documented on [employer]. REVIEW OF SYSTEMS: Could not be obtained given the mental status of this patient. ALLERGIES: No known drug allergies. SOCIAL HISTORY: No alcohol, no tobacco, no illicit drug use. PHYSICAL EXAMINATION: GENERAL: The patient was found to be sleepy, but arousable noted with the following vital signs. VITAL SIGNS: Afebrile with temperature 97.2, pulse 90, respiratory rate 16, O2 sat 99%, with blood p ressure 145/79. HEENT: Unremarkable. Moist oral mucosa. NECK: Supple, No conjunctival injection or icterus. CARDIOVASCULAR SYSTEM: First and second heart sounds were heard. RESPIRATORY SYSTEM: Clear to auscultation. DIGESTIVE SYSTEM: Revealed a benign abdomen with positive bowel sounds. EXTREMITIES: No peripheral edema. SKIN: No new gross rash. LYMPHATICS: No peripheral lymphadenopathy. SUMMARY: A 47-year-old gentleman with mental retardation who presented here with severe hyponatremia . Thank you for this consultation. We will follow with you.
[2018-01-16] MEDS: Enoxaparin Sodium 40 MG/0.4 ML SYRINGE SC SCH (08:32)
[2018-01-16] MEDS: OXcarbazepine 300 MG TAB PO SCH ×2 (08:32→19:57)
[2018-01-16] MEDS: metFORMIN 500 MG TAB PO SCH ×2 (08:34→17:36)
[2018-01-16] MEDS: Lorazepam 1 MG TAB PO SCH ×4 (08:34→19:57)
[2018-01-16] MEDS: Pancrelipase DR 12000 1 CAP PO SCH ×3 (08:35→17:37)
[2018-01-16] MEDS: Divalproex Sodium DR 500 MG TAB PO SCH ×2 (08:35→19:57)
[2018-01-16] MEDS: Lisinopril 10 MG TAB PO SCH (08:35)
[2018-01-16] MEDS: risperiDONE 1 MG TAB PO SCH ×2 (08:36→19:57)
[2018-01-16] MEDS: Benztropine 1 MG TAB PO SCH ×2 (08:36→19:57)
[2018-01-16] MEDS ORDERED: Insulin Glargine 12 UNITS in Pre-Filled Syringe 1 EACH SC SCH (09:00)
[2018-01-16] MEDS: HumaLOG 300 UNITS/3 ML VIAL SC PRN ×2 (11:12→17:52)
--- NOTE | 2018-01-16 16:40 | PDOC.PN ---
- Subjective Encounter Start Date: 01/16/18 Encounter Start Time: 12:30 Subjective: f/u for hyponatremia due to psychogenic polydipsia. Overall improved -: Na+ with fluid restriction. No new complaints. Tolerating regular po intake - Objective MAR Reviewed: Yes Vital Signs & Weight: Vital Signs (12 hours) Temp Pulse Resp BP BP Pulse Ox 01/16/18 12:00 97 F L 92 16 141/83 H 92 L 01/16/18 08:53 97 F L 88 16 134/80 97 01/16/18 08:35 134/80 01/16/18 08:00 97 F L 88 16 97 Weight Weight 153 lb 14.4 oz I&O: 01/15/18 01/16/18 01/17/18 06:59 06:59 06:59 Intake Total 1440 Balance 1440 Result Diagrams: 01/15/18 05:47 01/15/18 19:01 Additional Labs: Accuchecks 01/16/18 01/16/18 01/15/18 10:41 05:32 19:45 POC Glucose 353 H 217 H 246 H 01/15/18 17:25 POC Glucose 259 H Laboratory Tests 01/14/18 01/14/18 01/14/18 21:31 21:31 21:34 Sodium Serum Osmolality 244 L* Urine Osmolality 192 L Urine Creatinine Less than 20.00 L Urine Sodium 65 01/14/18 01/15/18 01/15/18 21:37 01:41 13:14 Sodium 118 L* 120 L 118 L* Serum Osmolality Urine Osmolality Urine Creatinine Urine Sodium 01/15/18 14:51 Sodium 118 L* Serum Osmolality Urine Osmolality Urine Creatinine Urine Sodium Phys Exam - Physical Examination Constitutional: NAD HEENT: PERRLA, sclera anicteric, oral pharynx no lesions Neck: no nodes, no JVD, supple, full ROM Respiratory: no wheezing, no rales, no rhonchi, clear to auscultation bilateral S1, S2 Cardiovascular: RRR, no significant murmur, no rub, gallop Gastrointestinal: soft, non-tender, no distention, positive bowel sounds Musculoskeletal: no edema, pulses present Neurological: normal sensation, moves all 4 limbs flat affect Skin: no rash, normal turgor, cap refill <2 seconds Dx/Plan (1) Hyponatremia Code(s): E87.1 - HYPO-OSMOLALITY AND HYPONATREMIA Status: Acute Comment: Secondary to #2, fluid restriction, serial Na+, improving (2) Psychogenic polydipsia Code(s): R63.1 - POLYDIPSIA; F54 - [employer] W DISORD OR DIS CLASSD ELSWHR Status: Chronic Comment: Improved with fluid restriction 2L/24h (3) Bipolar disorder Code(s): F31.9 - BIPOLAR DISORDER, UNSPECIFIED Status: Chronic Comment: Continue Risperdal, supportive mgmt, consider [facility] evaluation (4) Hypertension Code(s): I10 - ESSENTIAL (PRIMARY) HYPERTENSION Status: Chronic Comment: Labile, resume home BP regimen, serial monitoring - Plan adoption social worker, out of bed/ambulate, DVT proph w/SCDs Stable overall -: Continue mild fluid restriction -: D/C Lovenox -: Sitter 1:1 -: AM lab: BMP * CM assisting with dispo planning
--- NOTE | 2018-01-16 18:50 | PRG ---
DATE OF SERVICE: 01/16/2018 SUBJECTIVE: The patient was seen and examined. No new complaint except that the patient wants to dr ink more. Noted with the following vital signs. PHYSICAL EXAMINATION: VITAL SIGNS: Afebrile, temperature 97, pulse 92, respiratory rate of 16, O2 sat of 97%, blood pressu re 134/80. HEENT: Unremarkable. Moist oral mucosa. CARDIOVASCULAR: First and second heart sounds were heard. RESPIRATORY SYSTEM: Clear to auscultation. DIGESTIVE SYSTEM: Revealed a benign abdomen. EXTREMITIES: No peripheral edema. SKIN: No new gross rash. LYMPHATICS: No peripheral lymphadenopathy. IMPRESSION: Hyponatremia in the context of psychogenic polydipsia. PLAN: 1. We will continue with liberalized fluid restriction. 2. Sodium check stat to evaluate the degree of correction at this point. 3. Further management will be dependent on the clinical course.
[2018-01-16 19:11] LABS: Anion Gap 16 mmol/L (10-20); BUN (Urea Nitrogen) 8 mg/dL (8.9-20.6); Calc. Creatinine Clearance 124 mL/min (70-130); Calcium 9.4 mg/dL (7.8-10.44); Carbon Dioxide 27 mmol/L (22-29); Chloride 89 mmol/L (98-107); Estimated GFR-MDRD Greater than 90; Glucose 255 mg/dL (70-105); Potassium 4.7 mmol/L (3.5-5.1); Sodium 127 mmol/L (136-145)
[2018-01-16] MEDS: Insulin Glargine 4 UNITS in Pre-Filled Syringe 1 EACH SC SCH (19:58)
[2018-01-17 06:19] LABS: Anion Gap 15 mmol/L (10-20); BUN (Urea Nitrogen) 9 mg/dL (8.9-20.6); Calc. Creatinine Clearance 129 mL/min (70-130); Calcium 8.9 mg/dL (7.8-10.44); Carbon Dioxide 25 mmol/L (22-29); Chloride 90 mmol/L (98-107); Estimated GFR-MDRD Greater than 90; Glucose 209 mg/dL (70-105); Potassium 4.5 mmol/L (3.5-5.1); Sodium 125 mmol/L (136-145)
--- NOTE | 2018-01-17 08:22 | PDOC.PN ---
- Subjective Encounter Start Date: 01/17/18 Encounter Start Time: 08:20 Patient seen and examined. No new complaints. No overnight events. pt still requesting to have more fluids per day. sitter at bedside. - Objective MAR Reviewed: Yes Vital Signs & Weight: Vital Signs (12 hours) Temp Pulse Resp BP Pulse Ox 01/17/18 04:00 97.2 F L 75 14 142/83 H 99 Weight Weight 153 lb 9.6 oz I&O: 01/16/18 01/17/18 01/18/18 06:59 06:59 06:59 Intake Total 1440 480 Balance 1440 480 Result Diagrams: 01/15/18 05:47 01/17/18 05:28 Additional Labs: Accuchecks 01/17/18 01/16/18 01/16/18 06:16 19:21 17:00 POC Glucose 197 H 269 H 257 H 01/16/18 10:41 POC Glucose 353 H Phys Exam - Physical Examination Constitutional: NAD HEENT: moist MMs, sclera anicteric Neck: supple Respiratory: no wheezing, no rales Cardiovascular: RRR Gastrointestinal: soft Musculoskeletal: no edema Neurological: non-focal Deviation from normal: mentally challenged Skin: no rash Dx/Plan (1) Psychogenic polydipsia Code(s): R63.1 - POLYDIPSIA; F54 - [employer] W DISORD OR DIS CLASSD ELSWHR Status: Chronic Comment: Improved with fluid restriction 2L/24h (2) Hyponatremia Code(s): E87.1 - HYPO-OSMOLALITY AND HYPONATREMIA Status: Acute Comment: Secondary to #2, fluid restriction, serial Na+, improving (3) Bipolar disorder Code(s): F31.9 - BIPOLAR DISORDER, UNSPECIFIED Status: Chronic Comment: Continue Risperdal, supportive mgmt, consider [facility] evaluation (4) DM type 2 (diabetes mellitus, type 2) Status: Chronic (5) Hypertension Code(s): I10 - ESSENTIAL (PRIMARY) HYPERTENSION Status: Chronic Comment: Labile, resume home BP regimen, serial monitoring - Plan cont current plan of care, PT/OT, social research assistant * . continue fluid restriction Monitor Na level. f/u with nephrology. will increase AM lantus to 14 units. continue sitter. AM labs.
[2018-01-17] MEDS: Pancrelipase DR 12000 1 CAP PO SCH ×3 (09:19→18:14)
[2018-01-17] MEDS: risperiDONE 1 MG TAB PO SCH ×2 (09:19→20:54)
[2018-01-17] MEDS: Divalproex Sodium DR 500 MG TAB PO SCH ×2 (09:20→20:52)
[2018-01-17] MEDS: metFORMIN 500 MG TAB PO SCH ×2 (09:20→16:46)
[2018-01-17] MEDS: OXcarbazepine 300 MG TAB PO SCH ×2 (09:20→20:54)
[2018-01-17] MEDS: Benztropine 1 MG TAB PO SCH ×2 (09:20→20:52)
[2018-01-17] MEDS: Insulin Glargine 14 UNITS in Pre-Filled Syringe 1 EACH SC SCH (09:21)
[2018-01-17] MEDS: Lisinopril 10 MG TAB PO SCH (09:21)
[2018-01-17] MEDS: Lorazepam 1 MG TAB PO SCH ×4 (09:21→20:53)
[2018-01-17] MEDS: HumaLOG 300 UNITS/3 ML VIAL SC PRN (12:35)
[2018-01-17] MEDS: Insulin Glargine 4 UNITS in Pre-Filled Syringe 1 EACH SC SCH (20:53)
[2018-01-18 06:51] LABS: Anion Gap 15 mmol/L (10-20); BUN (Urea Nitrogen) 7 mg/dL (8.9-20.6); Calc. Creatinine Clearance 120 mL/min (70-130); Calcium 8.9 mg/dL (7.8-10.44); Carbon Dioxide 21 mmol/L (22-29); Chloride 88 mmol/L (98-107); Estimated GFR-MDRD Greater than 90; Glucose 309 mg/dL (70-105); Potassium 4.7 mmol/L (3.5-5.1)
[2018-01-18 06:59] LABS: Sodium 119 mmol/L (136-145)
[2018-01-18] MEDS: Benztropine 1 MG TAB PO SCH ×2 (08:21→20:38)
[2018-01-18] MEDS: Pancrelipase DR 12000 1 CAP PO SCH ×3 (08:21→17:45)
[2018-01-18] MEDS: metFORMIN 500 MG TAB PO SCH ×2 (08:22→17:45)
[2018-01-18] MEDS: risperiDONE 1 MG TAB PO SCH ×2 (08:22→20:40)
[2018-01-18] MEDS: Lorazepam 1 MG TAB PO SCH ×4 (08:22→20:39)
[2018-01-18] MEDS: Lisinopril 10 MG TAB PO SCH (08:22)
[2018-01-18] MEDS: OXcarbazepine 300 MG TAB PO SCH ×2 (08:22→20:39)
--- NOTE | 2018-01-18 08:22 | PDOC.PN ---
- Subjective Encounter Start Date: 01/18/18 Encounter Start Time: 08:20 No complaints. Wants more food. Wants to go to the cafeteria to eat and not stay in his room. - Objective MAR Reviewed: Yes Vital Signs & Weight: Weight Weight 153 lb 6.4 oz I&O: 01/17/18 01/18/18 01/19/18 06:59 06:59 06:59 Intake Total 480 Balance 480 Result Diagrams: 01/15/18 05:47 01/18/18 06:18 Additional Labs: Accuchecks 01/18/18 01/17/18 01/17/18 05:11 19:25 16:44 POC Glucose 274 H 194 H 87 01/17/18 11:02 POC Glucose 220 H Phys Exam - Physical Examination Constitutional: NAD Strabismus Respiratory: no wheezing, no rales, no rhonchi, clear to auscultation bilateral Cardiovascular: RRR, no significant murmur, no rub Gastrointestinal: soft, non-tender, no distention, positive bowel sounds Musculoskeletal: no edema Neurological: non-focal Deviation from normal: Spills food all over the floor. Cooperative for the most part. Dx/Plan (1) Psychogenic polydipsia Code(s): R63.1 - POLYDIPSIA; F54 - [employer] W DISORD OR DIS CLASSD ELSWHR Status: Chronic Comment: Improved with fluid restriction 2L/24h (2) Hyponatremia Code(s): E87.1 - HYPO-OSMOLALITY AND HYPONATREMIA Status: Acute Comment: Secondary to #2, fluid restriction, serial Na+, improving (3) Anxiety and depression Code(s): F41.9 - ANXIETY DISORDER, UNSPECIFIED; F32.9 - MAJOR DEPRESSIVE DISORDER, SINGLE EPISODE, UNSPECIFIED Status: Chronic (4) Bipolar disorder Code(s): F31.9 - BIPOLAR DISORDER, UNSPECIFIED Status: Chronic Comment: Continue Risperdal, supportive mgmt, consider [facility] evaluation (5) DM type 2 (diabetes mellitus, type 2) Status: Chronic (6) Hypertension Code(s): I10 - ESSENTIAL (PRIMARY) HYPERTENSION Status: Chronic Comment: Labile, resume home BP regimen, serial monitoring (7) Thrombocytopenia Code(s): D69.6 - THROMBOCYTOPENIA, UNSPECIFIED Status: Acute - Plan * Sodium is worse today. No sitter available to watch 06/01 at this time. Suspect he is having some unwitnessed water intake. Plan is to continue to fluid restrict. Will try to monitor as much as possible. * Blood sugars are still a little high. Meds adjusted yesterday. Monitor today. * Thrombocytopenia is chronic.
[2018-01-18] MEDS: Divalproex Sodium DR 500 MG TAB PO SCH ×2 (08:23→20:39)
[2018-01-18] MEDS: Insulin Glargine 14 UNITS in Pre-Filled Syringe 1 EACH SC SCH (08:23)
[2018-01-18] MEDS: HumaLOG 300 UNITS/3 ML VIAL SC PRN ×3 (08:24→17:45)
--- NOTE | 2018-01-18 19:04 | PRG ---
DATE OF SERVICE: 01/18/2018 SUBJECTIVE: The patient was seen and examined, walking up and down the hallway, demand informed diet cook. PHYSICAL EXAMINATION: VITAL SIGNS: Afebrile with temperature 97.9, pulse 85, respiratory rate 12, O2 sat 100% on room air with a blood pressure 139/93. HEENT: Unremarkable with moist oral mucosa. NECK: Supple, No conjunctival injection or icterus. CARDIOVASCULAR: First and second heart sounds were heard. RESPIRATORY: Clear to auscultation. DIGESTIVE: Revealed a benign abdomen with positive bowel sounds. EXTREMITIES: No peripheral edema. SKIN: No new gross rash. LYMPHATICS: No peripheral lymphadenopathy. LABORATORY DATA: Sodium of 119 with a blood sugar of 309, corrected sodium should be upto to 121. IMPRESSION: 1. Severe hyponatremia in the context of psychogenic polydipsia. 2. Poorly controlled diabetes. PLAN: Fluid restriction is to be enforced in this patient. However, this could be very challenging given the fact that this excessive drinking has been lifestyle of this patient, who has some mental c hallenge. In any case, we will continue to try with the fluid restriction. Improve blood sugar cont rol strongly recommended. Hopefully, the sodium will improve. This is likely to become a recurrent issue whereby patient gets discharged and drinks a lot and goes into symptomatic hyponatremia. Furth er management to be dependent on the clinical course.
[2018-01-18] MEDS: Insulin Glargine 4 UNITS in Pre-Filled Syringe 1 EACH SC SCH (20:39)
[2018-01-19 08:14] LABS: Anion Gap 16 mmol/L (10-20); BUN (Urea Nitrogen) 9 mg/dL (8.9-20.6); Calc. Creatinine Clearance 108 mL/min (70-130); Calcium 9.8 mg/dL (7.8-10.44); Carbon Dioxide 22 mmol/L (22-29); Chloride 92 mmol/L (98-107); Estimated GFR-MDRD Greater than 90; Glucose 177 mg/dL (70-105); Potassium 4.4 mmol/L (3.5-5.1); Sodium 126 mmol/L (136-145)
[2018-01-19] MEDS: Insulin Glargine 14 UNITS in Pre-Filled Syringe 1 EACH SC SCH (09:06)
[2018-01-19] MEDS: Divalproex Sodium DR 500 MG TAB PO SCH ×2 (09:06→20:38)
[2018-01-19] MEDS: Pancrelipase DR 12000 1 CAP PO SCH ×3 (09:06→17:59)
[2018-01-19] MEDS: risperiDONE 1 MG TAB PO SCH ×2 (09:07→20:39)
[2018-01-19] MEDS: Lisinopril 10 MG TAB PO SCH (09:07)
[2018-01-19] MEDS: Lorazepam 1 MG TAB PO SCH ×4 (09:07→20:38)
[2018-01-19] MEDS: Benztropine 1 MG TAB PO SCH ×2 (09:07→20:38)
[2018-01-19] MEDS: OXcarbazepine 300 MG TAB PO SCH ×2 (09:07→20:37)
[2018-01-19] MEDS: metFORMIN 500 MG TAB PO SCH ×2 (09:07→17:59)
--- NOTE | 2018-01-19 10:37 | PDOC.PN ---
- Subjective Encounter Start Date: 01/19/18 Encounter Start Time: 10:36 Doing well. Eager to leave the hospital. - Objective Vital Signs & Weight: Vital Signs (12 hours) Temp Pulse Resp BP BP BP Pulse Ox 01/19/18 09:07 134/80 01/19/18 08:02 98.2 F 82 20 140/107 H 98 01/19/18 04:00 97.4 F L 92 16 132/85 98 Weight Weight 152 lb 4.8 oz I&O: 01/18/18 01/19/18 01/20/18 06:59 06:59 06:59 Intake Total 1200 Output Total 950 Balance 250 Result Diagrams: 01/15/18 05:47 01/19/18 07:47 Additional Labs: Accuchecks 01/19/18 01/18/18 01/18/18 06:07 16:40 10:48 POC Glucose 132 H 196 H 237 H Phys Exam - Physical Examination Constitutional: NAD Respiratory: no wheezing, no rales, no rhonchi, clear to auscultation bilateral Cardiovascular: RRR, no significant murmur, no rub Gastrointestinal: soft, non-tender, no distention, positive bowel sounds Musculoskeletal: no edema Dx/Plan (1) Psychogenic polydipsia Code(s): R63.1 - POLYDIPSIA; F54 - [employer] W DISORD OR DIS CLASSD ELSWHR Status: Chronic Comment: Improved with fluid restriction 2L/24h (2) Hyponatremia Code(s): E87.1 - HYPO-OSMOLALITY AND HYPONATREMIA Status: Acute Comment: Secondary to #2, fluid restriction, serial Na+, improving (3) Anxiety and depression Code(s): F41.9 - ANXIETY DISORDER, UNSPECIFIED; F32.9 - MAJOR DEPRESSIVE DISORDER, SINGLE EPISODE, UNSPECIFIED Status: Chronic (4) Bipolar disorder Code(s): F31.9 - BIPOLAR DISORDER, UNSPECIFIED Status: Chronic Comment: Continue Risperdal, supportive mgmt, consider [facility] evaluation (5) DM type 2 (diabetes mellitus, type 2) Status: Chronic (6) Hypertension Code(s): I10 - ESSENTIAL (PRIMARY) HYPERTENSION Status: Chronic Comment: Labile, resume home BP regimen, serial monitoring (7) Thrombocytopenia Code(s): D69.6 - THROMBOCYTOPENIA, UNSPECIFIED Status: Chronic - Plan * Improved with having the 24 hour sitter to help avoid excess water intake. Will give it one more day. If continues to improve, anticipate DC in am. Check a.m. labs. .
[2018-01-19] MEDS: HumaLOG 300 UNITS/3 ML VIAL SC PRN ×2 (11:45→16:11)
--- NOTE | 2018-01-19 19:44 | PRG ---
DATE OF SERVICE: 01/19/2018 SUBJECTIVE: Patient was seen and examined, seems to be doing much better, walking around the hallway noted with the following vital signs. PHYSICAL EXAMINATION: VITAL SIGNS: Afebrile, temperature 97.6, pulse 78, respiratory rate 20, satting 96%, blood pressure . HEENT: Unremarkable. Moist oral mucosa. NECK: Supple. EYES: No conjunctival injection or icterus. CARDIOVASCULAR SYSTEM: First and second heart sounds were heard. RESPIRATORY SYSTEM: Clear to auscultation. DIGESTIVE SYSTEM: Revealed benign abdomen with positive bowel sound. EXTREMITIES: No peripheral edema. SKIN: No new gross rash. LYMPHATICS: No peripheral lymphadenopathy. LABORATORY DATA: Laboratory investigation showed sodium that has gone up to 126. IMPRESSION: Hyponatremia in the context of psychogenic polydipsia. PLAN: 1. We will continue to encourage this patient to limit the p.o. intake and hopefully we will stabili ze the sodium being able to be discharged. 2. Most likely this condition will remain recurrent given the psychogenic polydipsia in this patient . Further management to be dependent on the clinical course.
[2018-01-19] MEDS: Insulin Glargine 4 UNITS in Pre-Filled Syringe 1 EACH SC SCH (20:37)
[2018-01-20 08:10] LABS: Anion Gap 18 mmol/L (10-20); BUN (Urea Nitrogen) 15 mg/dL (8.9-20.6); Calc. Creatinine Clearance 97 mL/min (70-130); Carbon Dioxide 20 mmol/L (22-29); Chloride 98 mmol/L (98-107); Estimated GFR-MDRD 88; Potassium 4.6 mmol/L (3.5-5.1); Sodium 131 mmol/L (136-145)
[2018-01-20 08:11] LABS: Calcium 8.9 mg/dL (7.8-10.44); Glucose 267 mg/dL (70-105)
[2018-01-20] MEDS: Pancrelipase DR 12000 1 CAP PO SCH ×2 (09:39→13:32)
[2018-01-20] MEDS: OXcarbazepine 300 MG TAB PO SCH (09:40)
[2018-01-20] MEDS: Divalproex Sodium DR 500 MG TAB PO SCH (09:40)
[2018-01-20] MEDS: Benztropine 1 MG TAB PO SCH (09:40)
[2018-01-20] MEDS: risperiDONE 1 MG TAB PO SCH (09:40)
[2018-01-20] MEDS: metFORMIN 500 MG TAB PO SCH (09:41)
[2018-01-20] MEDS: Lisinopril 10 MG TAB PO SCH (09:42)
[2018-01-20] MEDS: Lorazepam 1 MG TAB PO SCH ×2 (10:21→13:32)
[2018-01-20] MEDS: Insulin Glargine 14 UNITS in Pre-Filled Syringe 1 EACH SC SCH (10:21)
[2018-01-20 11:41] VITALS: BP 127/73; TEMP 97.7
[2018-01-20] MEDS: HumaLOG 300 UNITS/3 ML VIAL SC PRN (13:32)
--- NOTE | 2018-01-21 12:22 | DIS ---
DATE OF ADMISSION: 01/15/2018 DATE OF DISCHARGE: 01/20/2018 DISCHARGE DIAGNOSES: 1. Psychogenic polydipsia. 2. Hyponatremia. 3. History of bipolar disorder. 4. Anxiety and depression. 5. Diabetes mellitus. 6. Chronic thrombocytopenia disorder. 7. Hypertension. HOSPITAL COURSE: This patient is a 47-year-old male with a history of some underlying psychiatric il lness who is in a halfway. The patient has a history of psychogenic polydipsia with previous admi ssions. The halfway as indicated that they have difficult time restraining the patient from drink ing excess fluids, as he drinks from extraneous sources such as a shower. The patient presented to [facility] via the emergency department with some altered mental status and agitation. The patient was initially noted to have a sodium of 118 and a repeat of 120. [facility]ogenic polydipsia and secondary hyponatremia with associated encephalopathy. HOSPITAL COURSE: The patient was fluid restricted and he did have some improvement in his sodium; ho wever, without a sitter, the patient would find ways to consume additional fluids and there was some back tracking of his sodium levels. Ultimately, once we were able to establish a 24-hour sitter that the patient's sodium improved over the next couple of days and ultimately came up to 131. The patie nt was felt to be stable for discharge, as he did not have significant underlying physiologic disorde r, but this was primarily being driven by his psychiatric illness. Of note, the patient's blood suga rs were running a bit high in the hospital. The patient continually asked for more food obviously ambrosio s some difficulty with compliance from an understanding perspective. PHYSICAL EXAMINATION: VITAL SIGNS: On the day of discharge, temperature was 97.7, pulse was respirations 14-18, O2 s at 95%-97% on room air, BP to 127/73. GENERAL: Patient was awake and alert. He is generally polite but has some challenges with comprehen ken. HEART: Regular rate and rhythm. LUNGS: Clear. ABDOMEN: Soft, nontender. EXTREMITIES: Warm and dry. DISPOSITION: Patient is discharged back to the halfway. He should be restricted to 1200 mL of fl uids per day. Otherwise, his activity level is ad-angelito. DISCHARGE MEDICATIONS: We will prescribe salt tablets for the patient, although I explained it is ve ry likely that this will be helpful. The halfway was requesting anything that we could possibly d o in order to try to prevent his hyponatremia due to the fact that they have a difficult time in ciera ging his fluids. He will also be on Creon 24,000 units one p.o. q.a.c., vitamin D3 of 10,000 units e very day, metformin 1000 mg b.i.d., Humalog 4 units subcutaneous q.a.c., Cogentin 1 mg b.i.d., Risper dale 4 mg b.i.d., lorazepam 2 mg q.i.d., lisinopril 10 mg every day, insulin Lantus 4 units subcutaneo us at bedtime and 12 units subcutaneous q.a.m., folic acid 1 mg every day, Depakote 1000 mg b.i.d. H e is to be on a diabetic diet and he is to follow up at the emergency department. Should he have any further problems, otherwise, he can follow up with his PCP.
== END 2018-01-20 14:00 | disposition home or self-care (01) | DRG 640 ==
LOC: ERS 21:15 → 2NO 01-15 03:12
PROVIDERS: ADMIT Hospitalist; ATTEND Hospitalist
DX: R63.1 Polydipsia (principal); G93.40 Encephalopathy, unspecified; E87.1 Hypo-osmolality and hyponatremia; K86.1 Other chronic pancreatitis; E11.9 Type 2 diabetes mellitus without complications; I10 Essential (primary) hypertension; F31.9 Bipolar disorder, unspecified; F79 Unspecified intellectual disabilities; F41.9 Anxiety disorder, unspecified; D69.6 Thrombocytopenia, unspecified; Z79.4 Long term (current) use of insulin
CPT/HCPCS: 36415; 36416; 80048; 80053; 80306; 80307; 81003; 82436; 82570; 83930; 83935; 84133; 84300; 85025; 90471; 90732; 99283; 99285; A4216; G0009; J1650

== ENCOUNTER 2018-01-21 04:51 | Emergency (ER) | payer OTHER | END 2018-01-21 06:18 | disposition home or self-care (01) | LOC: ERS 04:51 | DX: S00.01XA Abrasion of scalp, initial encounter (principal); E11.9 Type 2 diabetes mellitus without complications; I10 Essential (primary) hypertension; Z79.899 Other long term (current) drug therapy; Z79.4 Long term (current) use of insulin; Y04.2XXA Assault by strike against or bumped into by another person, initial encounter | CPT/HCPCS: 99284 ==

== ENCOUNTER 2018-03-04 11:54 | Emergency (ER) | payer OTHER ==
[2018-03-04] MEDS ORDERED: Dextrose 50% Abboject 50 ML SYRINGE ONE ×2 (13:13→13:43)
[2018-03-04 13:41] LABS: #Eosinphils 0.1 thou/uL (0.0-0.7); #Lymphocytes 0.9 thou/uL (1.20-3.40); #Monocytes 0.7 thou/uL (0.11-0.59); %Basophils 0.1 % (0.0-1.0); %Eosinophils 1.5 % (0.0-10.0); %Lymphocytes 15.4 % (21.0-51.0); %Monocytes 11.6 % (0.0-10.0); %Neutrophils 71.4 % (42.0-75.0); Hemoglobin 14.8 g/dL (14.0-18.0); Mean Corpuscular Hemoglobin 33.3 pg (27.0-31.0); Mean Platelet Volume 9.6 fL (7.4-10.4); Platelet Count 114 thou/uL (130-400); RBC Distribution Width 12.2 % (11.5-14.5); Red Blood Cell (RBC) Count 4.45 mill/uL (4.70-6.10); White Blood Cell (WBC) Count 5.6 thou/uL (4.8-10.8)
[2018-03-04 14:05] LABS: Anion Gap 12 mmol/L (10-20); BUN (Urea Nitrogen) 8 mg/dL (8.9-20.6); Calc. Creatinine Clearance 0 mL/min (70-130); Calcium 9.5 mg/dL (7.8-10.44); Carbon Dioxide 28 mmol/L (22-29); Chloride 99 mmol/L (98-107); Estimated GFR-MDRD Greater than 90; Glucose 103 mg/dL (70-105); Potassium 4.5 mmol/L (3.5-5.1); Sodium 134 mmol/L (136-145)
== END 2018-03-04 15:02 | disposition home or self-care (01) ==
LOC: ERS 11:54
DX: E11.649 Type 2 diabetes mellitus with hypoglycemia without coma (principal); Z79.4 Long term (current) use of insulin; Z79.899 Other long term (current) drug therapy
CPT/HCPCS: 36415; 36416; 80048; 85025; 96374

== ENCOUNTER 2018-03-09 05:53 | Emergency (ER) | payer OTHER ==
[2018-03-09 06:48] LABS: #Lymphocytes 0.8 thou/uL (1.20-3.40); #Monocytes 0.6 thou/uL (0.11-0.59); #Neutrophils 4.4 thou/uL (1.40-6.50); %Basophils 0.4 % (0.0-1.0); %Eosinophils 0.8 % (0.0-10.0); %Lymphocytes 13.4 % (21.0-51.0); %Monocytes 9.7 % (0.0-10.0); %Neutrophils 75.7 % (42.0-75.0); Hemoglobin 14.5 g/dL (14.0-18.0); Mean Corpuscular Hemoglobin 33.3 pg (27.0-31.0); Mean Platelet Volume 8.5 fL (7.4-10.4); Platelet Count 110 thou/uL (130-400); RBC Distribution Width 12.5 % (11.5-14.5); Red Blood Cell (RBC) Count 4.35 mill/uL (4.70-6.10); White Blood Cell (WBC) Count 5.8 thou/uL (4.8-10.8)
[2018-03-09 07:08] LABS: ALT (SGPT) 23 U/L (8-55); AST (SGOT) 26 U/L (5-34); Albumin 3.6 g/dL (3.5-5.0); Alkaline Phosphatase 63 U/L (40-150); Anion Gap 10 mmol/L (10-20); BUN (Urea Nitrogen) 7 mg/dL (8.9-20.6); Bilirubin, Total 0.5 mg/dL (0.2-1.2); Calc. Creatinine Clearance 0 mL/min (70-130); Calcium 9.5 mg/dL (7.8-10.44); Carbon Dioxide 28 mmol/L (22-29); Chloride 100 mmol/L (98-107); Estimated GFR-MDRD Greater than 90; Globulin 2.3 g/dL (2.4-3.5); Glucose 179 mg/dL (70-105); Potassium 4.2 mmol/L (3.5-5.1); Protein, Total 5.9 g/dL (6.0-8.3); Sodium 134 mmol/L (136-145)
== END 2018-03-09 08:17 | disposition home or self-care (01) ==
LOC: ERS 05:53
DX: E11.649 Type 2 diabetes mellitus with hypoglycemia without coma (principal); I10 Essential (primary) hypertension; E77.8 Other disorders of glycoprotein metabolism; F31.9 Bipolar disorder, unspecified; Z79.4 Long term (current) use of insulin; Z79.899 Other long term (current) drug therapy
CPT/HCPCS: 36415; 36416; 80053; 85025; 99285

== ENCOUNTER 2020-07-15 12:18 | Emergency (ER) | payer OTHER ==
[2020-07-15 14:31] LABS: Bilirubin Negative (Negative); Blood, Urine Negative (Negative); Clarity Clear (Clear); Glucose, Urine (Dipstick) Greater than 1000 mg/dL (Negative); Ketone, Urine Negative (Negative); Leukocyte Negative Leu/uL (Negative); Nitrite Negative (Negative); Protein, Urine (Dipstick) Negative (Neg-Trace); Specific Gravity, Urine 1.008 (1.002-1.036); Urobilinogen Normal mg/dL (Less than 2); pH, Urine 6.5 (5.0-9.0)
[2020-07-15 14:42] LABS: Amphetamine Not Detected (NotDetected); Barbiturates Screen Not Detected (NotDetected); Benzodiazepine Screen Detected (NotDetected); Cocaine Metabolite Screen Not Detected (NotDetected); Medtox Control Line Valid? VALID (VALID); Medtox Reader # READER 1; Methadone Not Detected (NotDetected); Methamphetamine Not Detected (NotDetected); Opiate Screen Not Detected (NotDetected); Oxycodone Screen Not Detected (NotDetected); Phencyclidine (PCP) Not Detected (NotDetected); THC/Cannabinoid Screen Not Detected (NotDetected); Tricyclic Screen Not Detected (NotDetected)
[2020-07-15 14:50] LABS: Hemoglobin 13.9 g/dL (14.0-18.0); Mean Corpuscular HGB CONC 33.5 g/dL (32.0-36.0); Mean Corpuscular Hemoglobin 33.5 pg (27.0-31.0); RBC Distribution Width 12.5 % (11.5-14.5); Red Blood Cell (RBC) Count 4.14 mill/uL (4.70-6.10)
[2020-07-15 15:04] LABS: ALT (SGPT) 25 U/L (8-55); AST (SGOT) 27 U/L (5-34); Acetaminophen Less than 6.0 mcg/mL (10.0-30.0); Albumin 3.6 g/dL (3.5-5.0); Alcohol Less than 10 mg/dL (Less than 10); Alkaline Phosphatase 73 U/L (40-110); Anion Gap 11 mmol/L (10-20); BUN (Urea Nitrogen) 11 mg/dL (8.9-20.6); Bilirubin, Total 0.5 mg/dL (0.2-1.2); Calc. Creatinine Clearance 0 mL/min (70-130); Calcium 8.4 mg/dL (7.8-10.44); Carbon Dioxide 26 mmol/L (22-29); Chloride 97 mmol/L (98-107); Globulin 2.5 g/dL (2.4-3.5); Glucose 268 mg/dL (70-105); Potassium 4.4 mmol/L (3.5-5.1); Protein, Total 6.1 g/dL (6.0-8.3); Salicylate Less than 8.0 mg/dL (15.0-30.0); Sodium 130 mmol/L (136-145)
[2020-07-15 15:10] LABS: Band 30 % (5-11); Lymphocytes 3 % (21-51); MDiff Complete? YES; Macrocytosis SLIGHT = 6-15 cells (100X) (0-5/hpf); Mean Platelet Volume 8.7 fL (7.4-10.4); Monocytes 3 % (0-10); Neutrophil 63 % (42-75); Platelet Count 106 thou/uL (130-400); Platelet Morphology Comment Appears Decreased; Reactive Lymphocytes 1 % (0-10)
== END 2020-07-15 15:49 | disposition home or self-care (01) ==
LOC: ERS 12:18
DX: R45.1 Restlessness and agitation (principal); E11.9 Type 2 diabetes mellitus without complications; I10 Essential (primary) hypertension
CPT/HCPCS: 36415; 80053; 80306; 80307; 81003; 82550; 84443; 85025; 99285

== ENCOUNTER 2021-06-07 14:00 | Inpatient (IN) | payer OTHER ==
[~2021-06-07 14:00] MED LIST: ISOVUE-370 76%-LOCM 1 ML ONE
[2021-06-07 14:35] LABS: Hemoglobin 16.8 g/dL (14.0-18.0); Mean Corpuscular HGB CONC 33.9 g/dL (32.0-36.0); Mean Corpuscular Hemoglobin 35.1 pg (27.0-31.0); Mean Platelet Volume 11.1 fL (7.4-10.4); Platelet Count 42 thou/uL (130-400); RBC Distribution Width 12.4 % (11.5-14.5); White Blood Cell (WBC) Count 2.2 thou/uL (4.8-10.8)
[2021-06-07 14:51] LABS: Acetaminophen Less than 6.0 mcg/mL (10.0-30.0); Alcohol Less than 10 mg/dL (Less than 10); Band 17 % (5-11); Large Platelets SLIGHT; Lymphocytes 25 % (21-51); MDiff Complete? YES; Macrocytosis SLIGHT = 6-15 cells (100X) (0-5/hpf); Neutrophil 51 % (42-75); Platelet Morphology Comment Appears Decreased; Reactive Lymphocytes 7 % (0-10); Salicylate Less than 8.0 mg/dL (15.0-30.0)
[2021-06-07 14:53] LABS: ALT (SGPT) 3277 U/L (8-55); AST (SGOT) 1895 U/L (5-34); Albumin 3.4 g/dL (3.5-5.0); Alkaline Phosphatase 257 U/L (40-110); Anion Gap 22 mmol/L (10-20); BUN (Urea Nitrogen) 21 mg/dL (8.4-25.7); Bilirubin, Total 1.7 mg/dL (0.2-1.2); CK (CPK) 165 U/L (30-200); Calc. Creatinine Clearance 0 mL/min (70-130); Calcium 9.1 mg/dL (7.8-10.44); Carbon Dioxide 22 mmol/L (22-29); Chloride 95 mmol/L (98-107); Globulin 2.8 g/dL (2.4-3.5); Glucose 114 mg/dL (70-105); Lipase Less than 4 U/L (8-78); Potassium 4.3 mmol/L (3.5-5.1); Protein, Total 6.2 g/dL (6.0-8.3); Sodium 135 mmol/L (136-145)
[2021-06-07] MEDS ORDERED: Vancomycin 1 GM/200 ML BAG ONE (15:36)
[2021-06-07] MEDS ORDERED: Sodium Chloride 0.9% 100 ML ONE (15:36)
[2021-06-07] MEDS ORDERED: Cefepime 2 GM VIAL ONE (15:36)
[2021-06-07 16:45] LABS: SARS-CoV-2 NAA Rapid Test DETECTED (NotDetected)
[2021-06-07 18:26] LABS: Actual Bicarbonate (HCO3a) 26.1 mEq/L (22-28); Analyzer IN Cardio ER; Base Excess (BEa) 4.1 mEq/L (-2.0 to +3.0); CO2 Tension 31.6 mmHg (35.0-45.0); Calcium, Ionized (arterial) 1.08 mmol/L (1.12-1.30); Carboxyhemoglobin (COHb) 0.4 gm% (0.0-3.0); Hemoglobin (Hb) 14.8 g/dL (14.0-18.0); Potassium - ABG Lab 3.67 mmol/L (3.70-5.30); pH, Arterial 7.53 (7.35-7.45)
[2021-06-07 18:32] LABS: O2 Tension (PaO2), arterial 56.5 mmHg (80.0-100.0); Puncture Site RRA
[2021-06-07 18:44] LABS: Lactic Acid 2.1 mmol/L (0.5-2.2)
[2021-06-07] MEDS ORDERED: Norepinephrine 8 MG/0.9% NS 250 ML ONE (19:02)
[2021-06-07] MEDS ORDERED: Rocuronium Bromide 10 MG/ML (10ML VIAL) ONE (19:02)
[2021-06-07] MEDS ORDERED: Dexamethasone 10 MG/ML VIAL ONE (19:40)
[2021-06-07] MEDS ORDERED: Dextrose 5% in Water 1,000 ML IV PRN (20:11)
[2021-06-07 20:44] LABS: Actual Bicarbonate (HCO3a) 23.7 mEq/L (22-28); Analyzer IN Cardio ER; Base Excess (BEa) 0.8 mEq/L (-2.0 to +3.0); CO2 Tension 32.8 mmHg (35.0-45.0); Calcium, Ionized (arterial) 1.05 mmol/L (1.12-1.30); Carboxyhemoglobin (COHb) 0.2 gm% (0.0-3.0); Hemoglobin (Hb) 13.5 g/dL (14.0-18.0); O2 Tension (PaO2), arterial 150.5 mmHg (80.0-100.0); Potassium - ABG Lab 2.87 mmol/L (3.70-5.30); pH, Arterial 7.48 (7.35-7.45)
[2021-06-07 20:45] LABS: Puncture Site RRA
[2021-06-07] MEDS: Fentanyl CADD 100 ML IV SCH (21:11)
[2021-06-07] MEDS: Sodium Chloride 0.9% 1,000 ML IV SCH (21:23)
[2021-06-07] MEDS ORDERED: Ondansetron PF 4 MG/2 ML Vial IVP PRN (21:30)
[2021-06-07] MEDS ORDERED: Ondansetron ODT 4 MG TAB SL PRN (21:30)
[2021-06-07] MEDS ORDERED: DISCONTINUE PREVIOUS NARCOTIC PAIN MEDICATIONS AND BENZODIAZEPINES FS SCH (21:30)
[2021-06-07] MEDS ORDERED: Propofol BOLUS 1,000 MG/100 ML VIAL IV PRN (21:30)
[2021-06-07] MEDS ORDERED: Fentanyl BOLUS 250 ML IVPB PRN (21:30)
[2021-06-07] MEDS ORDERED: Morphine 2 MG/ML VIAL SLOW IVP PRN (21:30)
[2021-06-07] MEDS: Dextrose 50% Abboject 50 ML SYRINGE SLOW IVP PRN (23:51)
[2021-06-08] MEDS ORDERED: Norepinephrine 8 MG/0.9% NS 250 ML IVPB SCH (02:15)
[2021-06-08] MEDS ORDERED: Cefepime 2 GM in Sodium Chloride 0.9% 100 ML IVPB SCH (03:00)
[2021-06-08] MEDS: Vancomycin 1 GM in Premix Bag 1 BAG IVPB SCH ×2 (04:16→15:00)
[2021-06-08 05:09] LABS: Band 23 % (5-11); Hemoglobin 13.4 g/dL (14.0-18.0); Hypochromia SLIGHT = 6-15 cells (100X) (0-5/hpf); Lymphocytes 6 % (21-51); MDiff Complete? YES; Mean Corpuscular HGB CONC 33.3 g/dL (32.0-36.0); Mean Corpuscular Hemoglobin 34.2 pg (27.0-31.0); Mean Platelet Volume 11.9 fL (7.4-10.4); Metamyelocyte 1 % (0-0); Monocytes 22 % (0-10); Neutrophil 48 % (42-75); Platelet Count 30 thou/uL (130-400); Platelet Morphology Comment Appears Decreased; RBC Distribution Width 12.4 % (11.5-14.5); Red Blood Cell (RBC) Count 3.92 mill/uL (4.70-6.10)
[2021-06-08 05:17] LABS: ALT (SGPT) 1632 U/L (8-55); AST (SGOT) 788 U/L (5-34); Albumin 2.2 g/dL (3.5-5.0); Alkaline Phosphatase 140 U/L (40-110); Anion Gap 9 mmol/L (10-20); BUN (Urea Nitrogen) 16 mg/dL (8.4-25.7); Bilirubin, Total 1.2 mg/dL (0.2-1.2); Calc. Creatinine Clearance 125 mL/min (70-130); Calcium 7.1 mg/dL (7.8-10.44); Carbon Dioxide 27 mmol/L (22-29); Chloride 102 mmol/L (98-107); Glucose 117 mg/dL (70-105); Potassium 3.7 mmol/L (3.5-5.1); Protein, Total 4.2 g/dL (6.0-8.3); Sodium 134 mmol/L (136-145)
[2021-06-08] MEDS: Lorazepam 2 MG/ML VIAL SLOW IVP PRN ×2 (08:14→13:14)
[2021-06-08] MEDS: Propofol 1,000 MG/100 ML VIAL IV PRN (08:14)
[2021-06-08] MEDS ORDERED: Dexamethasone 10 MG in Sodium Chloride 0.9% 50 ML IVPB SCH (09:00)
[2021-06-08 09:10] LABS: INR-International Normal Ratio 1.2; PTT 34.7 sec (22.9-36.1); Prothrombin Time 15.8 sec (12.0-14.7)
[2021-06-08] MEDS: Folic Acid 1 MG TAB PO SCH (09:36)
[2021-06-08] MEDS: Sodium Chloride 0.9% 1,000 ML IV SCH ×2 (09:42→22:43)
[2021-06-08] MEDS: Dexamethasone 4 mg/ml Vial SLOW IVP SCH (09:49)
[2021-06-08] MEDS: Cefepime 2 GM in Sodium Chloride 0.9% 100 ML IVPB SCH ×2 (12:42→20:38)
[2021-06-08] MEDS: Pancrelipase DR 12,000 1 CAP PO SCH ×2 (14:29→17:10)
[2021-06-08] MEDS: Lorazepam 1 MG TAB PER TUBE SCH ×2 (14:57→20:39)
[2021-06-08] MEDS: Fentanyl CADD 100 ML IV SCH (15:35)
[2021-06-08] MEDS: Divalproex Sodium DR 500 MG TAB PO SCH (20:39)
[2021-06-08] MEDS: Benztropine 1 MG TAB PO SCH (20:39)
[2021-06-08] MEDS: HumaLOG 300 UNITS/3 ML VIAL SC PRN (22:42)
[2021-06-09] MEDS: Cefepime 2 GM in Sodium Chloride 0.9% 100 ML IVPB SCH ×3 (03:32→20:05)
[2021-06-09] MEDS: Vancomycin 1 GM in Premix Bag 1 BAG IVPB SCH ×3 (03:32→20:05)
[2021-06-09] MEDS: Lorazepam 2 MG/ML VIAL SLOW IVP PRN ×4 (04:43→17:55)
[2021-06-09 04:47] LABS: Vancomycin, Trough 7.6 ug/mL
[2021-06-09 04:50] LABS: ALT (SGPT) 1031 U/L (8-55); AST (SGOT) 298 U/L (5-34); Alkaline Phosphatase 98 U/L (40-110); Anion Gap 10 mmol/L (10-20); BUN (Urea Nitrogen) 31 mg/dL (8.4-25.7); Bilirubin, Total 0.9 mg/dL (0.2-1.2); Calc. Creatinine Clearance 102 mL/min (70-130); Calcium 7.1 mg/dL (7.8-10.44); Carbon Dioxide 24 mmol/L (22-29); Chloride 104 mmol/L (98-107); Globulin 2.1 g/dL (2.4-3.5); Glucose 199 mg/dL (70-105); Iron 12 ug/dL (65-175); Iron Binding Capacity, Total 120 mcg/dL (261-462); Potassium 4.4 mmol/L (3.5-5.1); Protein, Total 4.1 g/dL (6.0-8.3); Sodium 134 mmol/L (136-145)
[2021-06-09 04:53] LABS: Band 70 % (5-11); Hemoglobin 11.1 g/dL (14.0-18.0); Hypochromia SLIGHT = 6-15 cells (100X) (0-5/hpf); Lymphocytes 10 % (21-51); MDiff Complete? YES; Macrocytosis SLIGHT = 6-15 cells (100X) (0-5/hpf); Mean Corpuscular HGB CONC 32.6 g/dL (32.0-36.0); Mean Corpuscular Hemoglobin 34.1 pg (27.0-31.0); Monocytes 12 % (0-10); Myelocyte 5 % (0-0); Neutrophil 3 % (42-75); Nucleated RBC 1 % (0); Platelet Count 17 thou/uL (130-400); Platelet Morphology Comment Appears Decreased; RBC Distribution Width 12.6 % (11.5-14.5); Red Blood Cell (RBC) Count 3.26 mill/uL (4.70-6.10); White Blood Cell (WBC) Count 5.1 thou/uL (4.8-10.8)
[2021-06-09 07:55] LABS: Actual Bicarbonate (HCO3a) 24.8 mEq/L (22-28); Base Excess (BEa) -1.7 mEq/L (-2.0 to +3.0); CO2 Tension 49.3 mmHg (35.0-45.0); Calcium, Ionized (arterial) 1.09 mmol/L (1.12-1.30); Carboxyhemoglobin (COHb) 0.9 gm% (0.0-3.0); Hemoglobin (Hb) 13.7 g/dL (14.0-18.0); O2 Tension (PaO2), arterial 60.1 mmHg (80.0-100.0); Potassium - ABG Lab 4.37 mmol/L (3.70-5.30); pH, Arterial 7.32 (7.35-7.45)
[2021-06-09 08:06] LABS: Puncture Site LRA
[2021-06-09] MEDS: Fentanyl CADD 100 ML IV SCH (08:06)
[2021-06-09 08:07] LABS: ALV-art Gradient 306.075 mmHg (0-20)
[2021-06-09] MEDS: Benztropine 1 MG TAB PO SCH ×2 (08:08→20:05)
[2021-06-09] MEDS: Folic Acid 1 MG TAB PO SCH (08:08)
[2021-06-09] MEDS: Divalproex Sodium DR 500 MG TAB PO SCH (08:08)
[2021-06-09] MEDS: Lorazepam 1 MG TAB PER TUBE SCH ×3 (08:08→20:05)
[2021-06-09] MEDS: Pancrelipase DR 12,000 1 CAP PO SCH ×3 (08:08→16:00)
[2021-06-09] MEDS: Dexamethasone 4 mg/ml Vial SLOW IVP SCH ×2 (08:08→20:06)
[2021-06-09] MEDS: Pantoprazole 40 MG VIAL IVP SCH (08:09)
[2021-06-09] MEDS: Sodium Chloride 0.9% 1,000 ML IV SCH ×2 (08:10→16:00)
[2021-06-09] MEDS: Propofol 1,000 MG/100 ML VIAL IV PRN (10:19)
[2021-06-09] MEDS: Vecuronium 10 MG VIAL IVP PRN ×3 (10:19→17:55)
[2021-06-09] MEDS: HumaLOG 300 UNITS/3 ML VIAL SC PRN ×3 (10:44→22:52)
[2021-06-09] MEDS: Divalproex Sodium 125 mg Sprinkle Capsule PO SCH (20:07)
[2021-06-10] MEDS ORDERED: Sodium Chloride 0.9% 250 ML IV SCH (01:45)
[2021-06-10] MEDS: Cefepime 2 GM in Sodium Chloride 0.9% 100 ML IVPB SCH ×3 (03:25→20:23)
[2021-06-10] MEDS: Vancomycin 1 GM in Premix Bag 1 BAG IVPB SCH ×3 (03:25→20:24)
[2021-06-10] MEDS: Sodium Chloride 0.9% 1,000 ML IV SCH ×2 (03:26→14:16)
[2021-06-10] MEDS: HumaLOG 300 UNITS/3 ML VIAL SC PRN ×2 (04:05→22:20)
[2021-06-10] MEDS: Fentanyl CADD 100 ML IV SCH (04:05)
[2021-06-10 05:35] LABS: Platelet Count 17 thou/uL (130-400)
[2021-06-10 05:51] LABS: Vancomycin, Trough 15.3 ug/mL
[2021-06-10 05:52] LABS: Band 47 % (5-11); Hemoglobin 10.6 g/dL (14.0-18.0); Hypochromia SLIGHT = 6-15 cells (100X) (0-5/hpf); Lymphocytes 3 % (21-51); MDiff Complete? YES; Macrocytosis SLIGHT = 6-15 cells (100X) (0-5/hpf); Mean Corpuscular HGB CONC 33.4 g/dL (32.0-36.0); Mean Corpuscular Hemoglobin 34.7 pg (27.0-31.0); Mean Platelet Volume 13.3 fL (7.4-10.4); Monocytes 9 % (0-10); Neutrophil 41 % (42-75); Platelet Morphology Comment Appears Decreased; RBC Distribution Width 12.7 % (11.5-14.5); Red Blood Cell (RBC) Count 3.06 mill/uL (4.70-6.10); White Blood Cell (WBC) Count 5.4 thou/uL (4.8-10.8)
[2021-06-10 05:53] LABS: Anion Gap 7 mmol/L (10-20); BUN (Urea Nitrogen) 30 mg/dL (8.4-25.7); Calc. Creatinine Clearance 116 mL/min (70-130); Calcium 7.3 mg/dL (7.8-10.44); Carbon Dioxide 25 mmol/L (22-29); Chloride 105 mmol/L (98-107); Glucose 172 mg/dL (70-105); Potassium 4.4 mmol/L (3.5-5.1); Sodium 133 mmol/L (136-145)
[2021-06-10] MEDS: Divalproex Sodium 125 mg Sprinkle Capsule PO SCH ×2 (08:07→20:25)
[2021-06-10] MEDS: Propofol 1,000 MG/100 ML VIAL IV PRN (08:07)
[2021-06-10] MEDS: Pancrelipase DR 12,000 1 CAP PO SCH ×3 (08:08→16:19)
[2021-06-10] MEDS: Benztropine 1 MG TAB PO SCH ×2 (08:08→20:24)
[2021-06-10] MEDS: Pantoprazole 40 MG VIAL IVP SCH (08:08)
[2021-06-10] MEDS: Lorazepam 1 MG TAB PER TUBE SCH ×3 (08:09→20:24)
[2021-06-10] MEDS: Folic Acid 1 MG TAB PO SCH (08:09)
[2021-06-10] MEDS: Dexamethasone 4 mg/ml Vial SLOW IVP SCH ×2 (08:09→20:24)
[2021-06-10 08:28] LABS: Actual Bicarbonate (HCO3a) 21.8 mEq/L (22-28); Base Excess (BEa) -2.4 mEq/L (-2.0 to +3.0); CO2 Tension 35.6 mmHg (35.0-45.0); Carboxyhemoglobin (COHb) 0.5 gm% (0.0-3.0); Hemoglobin (Hb) 12.5 g/dL (14.0-18.0); O2 Tension (PaO2), arterial 73.1 mmHg (80.0-100.0); Potassium - ABG Lab 4.27 mmol/L (3.70-5.30)
[2021-06-10 08:29] LABS: Puncture Site RRA
[2021-06-10] MEDS: Vecuronium 10 MG VIAL IVP PRN (10:17)
[2021-06-10] MEDS: Lorazepam 2 MG/ML VIAL SLOW IVP PRN (10:17)
[2021-06-10] MEDS ORDERED: Pancrelipase DR 12,000 1 CAP PO SCH (16:30)
[2021-06-10] MEDS ORDERED: TOLVAPTAN 30 MG TAB FS SCH (21:00)
[2021-06-10] MEDS ORDERED: Tolvaptan 15 MG TAB PER TUBE SCH (21:00)
[2021-06-11] MEDS: Fentanyl CADD 100 ML IV SCH ×2 (01:26→20:50)
[2021-06-11] MEDS: Cefepime 2 GM in Sodium Chloride 0.9% 100 ML IVPB SCH ×3 (03:29→20:14)
[2021-06-11] MEDS: Vancomycin 1 GM in Premix Bag 1 BAG IVPB SCH ×3 (03:29→20:14)
[2021-06-11] MEDS: HumaLOG 300 UNITS/3 ML VIAL SC PRN ×3 (04:41→22:20)
[2021-06-11 04:53] LABS: Hemoglobin 11.2 g/dL (14.0-18.0); Mean Corpuscular Hemoglobin 34.5 pg (27.0-31.0); Mean Platelet Volume 13.2 fL (7.4-10.4); Platelet Count 18 thou/uL (130-400); RBC Distribution Width 12.7 % (11.5-14.5); Red Blood Cell (RBC) Count 3.24 mill/uL (4.70-6.10); White Blood Cell (WBC) Count 8.3 thou/uL (4.8-10.8)
[2021-06-11 05:15] LABS: Anion Gap 5 mmol/L (10-20); BUN (Urea Nitrogen) 28 mg/dL (8.4-25.7); Calc. Creatinine Clearance 118 mL/min (70-130); Calcium 7.2 mg/dL (7.8-10.44); Carbon Dioxide 26 mmol/L (22-29); Chloride 104 mmol/L (98-107); Glucose 372 mg/dL (70-105); Potassium 4.5 mmol/L (3.5-5.1); Sodium 130 mmol/L (136-145)
[2021-06-11 05:22] LABS: Band 44 % (5-11); Lymphocytes 8 % (21-51); MDiff Complete? YES; Macrocytosis SLIGHT = 6-15 cells (100X) (0-5/hpf); Monocytes 5 % (0-10); Myelocyte 5 % (0-0); Neutrophil 37 % (42-75); Ovalocytes SLIGHT = 2-5 cells (100X) (0-1/hpf); Platelet Morphology Comment Appears Decreased; Promyelocytes 1 % (0-0); Schistocytes SLIGHT = 2-5 cells (100X) (0-1/hpf); Target Cells SLIGHT = 2-5 cells (100X) (0-1/hpf)
[2021-06-11] MEDS: Propofol 1,000 MG/100 ML VIAL IV PRN (06:43)
[2021-06-11] MEDS: Pantoprazole 40 MG VIAL IVP SCH (07:59)
[2021-06-11] MEDS: Dexamethasone 4 mg/ml Vial SLOW IVP SCH ×2 (07:59→20:12)
[2021-06-11] MEDS: Folic Acid 1 MG TAB PO SCH (07:59)
[2021-06-11] MEDS: Lorazepam 1 MG TAB PER TUBE SCH ×3 (08:00→20:14)
[2021-06-11] MEDS: Pancrelipase DR 12,000 1 CAP PO SCH ×3 (08:00→15:45)
[2021-06-11] MEDS: Benztropine 1 MG TAB PO SCH ×2 (08:00→20:13)
[2021-06-11] MEDS: Divalproex Sodium 125 mg Sprinkle Capsule PO SCH (08:01)
[2021-06-11 08:07] LABS: Actual Bicarbonate (HCO3a) 23.9 mEq/L (22-28); Base Excess (BEa) -1.5 mEq/L (-2.0 to +3.0); CO2 Tension 42.6 mmHg (35.0-45.0); Calcium, Ionized (arterial) 1.17 mmol/L (1.12-1.30); Carboxyhemoglobin (COHb) 0.6 gm% (0.0-3.0); Hemoglobin (Hb) 14.5 g/dL (14.0-18.0); O2 Tension (PaO2), arterial 60.8 mmHg (80.0-100.0); Potassium - ABG Lab 4.25 mmol/L (3.70-5.30); pH, Arterial 7.37 (7.35-7.45)
[2021-06-11 08:09] LABS: Puncture Site RRA
[2021-06-11] MEDS ORDERED: Furosemide 40 MG/4 ML VIAL SLOW IVP SCH (09:30)
[2021-06-11] MEDS: Valproate Sodium 250 mg/5 ml UD Cup PER TUBE SCH ×2 (10:05→20:15)
[2021-06-11] MEDS: Sodium Chloride 0.9% 1,000 ML IV SCH ×2 (11:27)
[2021-06-11 11:54] LABS: Bacteria/HPF None Seen HPF (None Seen); Bilirubin Negative (Negative); Blood, Urine 2+ (Negative); Clarity Clear (Clear); Glucose, Urine (Dipstick) 300 mg/dL (Negative); Ketone, Urine Negative (Negative); Leukocyte Negative Leu/uL (Negative); Nitrite Negative (Negative); Protein, Urine (Dipstick) Negative (Neg-Trace); Squamous Epithelial None Seen HPF (0-3); Urobilinogen Normal mg/dL (Less than 2); WBC/HPF 0-3 HPF (0-3); pH, Urine 5.5 (5.0-9.0)
[2021-06-11 12:25] LABS: Creatinine, Urine Less than 20.00 mg/dL (63-166); Sodium, Urine 103 mmol/L (Not Available)
[2021-06-12] MEDS: HumaLOG 300 UNITS/3 ML VIAL SC PRN ×3 (04:25→21:32)
[2021-06-12] MEDS: Cefepime 2 GM in Sodium Chloride 0.9% 100 ML IVPB SCH ×3 (04:28→19:43)
[2021-06-12 04:35] LABS: Hemoglobin 11.1 g/dL (14.0-18.0); Mean Corpuscular HGB CONC 33.2 g/dL (32.0-36.0); Mean Corpuscular Hemoglobin 34.6 pg (27.0-31.0); Mean Platelet Volume 12.6 fL (7.4-10.4); Platelet Count 24 thou/uL (130-400); RBC Distribution Width 12.8 % (11.5-14.5); Red Blood Cell (RBC) Count 3.21 mill/uL (4.70-6.10); White Blood Cell (WBC) Count 8.8 thou/uL (4.8-10.8)
[2021-06-12 04:50] LABS: Vancomycin, Trough 19.9 ug/mL
[2021-06-12 04:51] LABS: ALT (SGPT) 357 U/L (8-55); AST (SGOT) 78 U/L (5-34); Albumin 1.8 g/dL (3.5-5.0); Alkaline Phosphatase 140 U/L (40-110); Anion Gap 6 mmol/L (10-20); BUN (Urea Nitrogen) 34 mg/dL (8.4-25.7); Bilirubin, Direct 0.4 mg/dL (0.1-0.3); Bilirubin, Total 0.5 mg/dL (0.2-1.2); Calc. Creatinine Clearance 113 mL/min (70-130); Calcium 7.4 mg/dL (7.8-10.44); Carbon Dioxide 28 mmol/L (22-29); Chloride 106 mmol/L (98-107); Glucose 277 mg/dL (70-105); Potassium 4.6 mmol/L (3.5-5.1); Protein, Total 4.2 g/dL (6.0-8.3); Sodium 135 mmol/L (136-145)
[2021-06-12 04:57] LABS: Band 17 % (5-11); Hypochromia SLIGHT = 6-15 cells (100X) (0-5/hpf); Lymphocytes 12 % (21-51); MDiff Complete? YES; Macrocytosis SLIGHT = 6-15 cells (100X) (0-5/hpf); Metamyelocyte 2 % (0-0); Monocytes 12 % (0-10); Neutrophil 53 % (42-75); Nucleated RBC 1 % (0); Platelet Morphology Comment Appears Decreased; Reactive Lymphocytes 4 % (0-10)
[2021-06-12] MEDS: Vancomycin 1 GM in Premix Bag 1 BAG IVPB SCH ×3 (05:35→19:43)
[2021-06-12] MEDS: Benztropine 1 MG TAB PO SCH ×2 (07:57→19:44)
[2021-06-12] MEDS: Dexamethasone 4 mg/ml Vial SLOW IVP SCH ×2 (07:57→19:44)
[2021-06-12] MEDS: Pancrelipase DR 12,000 1 CAP PO SCH ×3 (07:57→16:24)
[2021-06-12] MEDS: Lorazepam 1 MG TAB PER TUBE SCH ×3 (07:57→19:44)
[2021-06-12] MEDS: Valproate Sodium 250 mg/5 ml UD Cup PER TUBE SCH ×2 (07:59→19:42)
[2021-06-12] MEDS: Pantoprazole 40 MG VIAL IVP SCH (07:59)
[2021-06-12] MEDS: Folic Acid 1 MG TAB PO SCH (07:59)
[2021-06-12 08:09] LABS: Actual Bicarbonate (HCO3a) 27.2 mEq/L (22-28); Base Excess (BEa) 1.8 mEq/L (-2.0 to +3.0); CO2 Tension 45.7 mmHg (35.0-45.0); Calcium, Ionized (arterial) 1.14 mmol/L (1.12-1.30); Hemoglobin (Hb) 11.9 g/dL (14.0-18.0); Potassium - ABG Lab 4.23 mmol/L (3.70-5.30); pH, Arterial 7.39 (7.35-7.45)
[2021-06-12 08:10] LABS: O2 Tension (PaO2), arterial 54.7 mmHg (80.0-100.0)
[2021-06-12 08:11] LABS: Puncture Site LRA
[2021-06-12 08:14] LABS: ALV-art Gradient 173.375 mmHg (0-20)
[2021-06-12] MEDS: Propofol 1,000 MG/100 ML VIAL IV PRN ×2 (09:48→19:45)
[2021-06-12] MEDS: Lantus 1000 UNITS/10 ML VIAL SC SCH (12:15)
[2021-06-12] MEDS: Fentanyl CADD 100 ML IV SCH (17:19)
[2021-06-13] MEDS: HumaLOG 300 UNITS/3 ML VIAL SC PRN ×3 (04:23→21:44)
[2021-06-13 04:38] LABS: Hemoglobin 11.3 g/dL (14.0-18.0); Mean Corpuscular HGB CONC 32.9 g/dL (32.0-36.0); Platelet Count 29 thou/uL (130-400); Red Blood Cell (RBC) Count 3.33 mill/uL (4.70-6.10); White Blood Cell (WBC) Count 10.9 thou/uL (4.8-10.8)
[2021-06-13] MEDS: Cefepime 2 GM in Sodium Chloride 0.9% 100 ML IVPB SCH ×3 (04:46→20:10)
[2021-06-13] MEDS: Vancomycin 1 GM in Premix Bag 1 BAG IVPB SCH ×3 (04:46→20:11)
[2021-06-13 04:58] LABS: Anion Gap 9 mmol/L (10-20); BUN (Urea Nitrogen) 38 mg/dL (8.4-25.7); Calc. Creatinine Clearance 124 mL/min (70-130); Calcium 7.7 mg/dL (7.8-10.44); Carbon Dioxide 29 mmol/L (22-29); Chloride 105 mmol/L (98-107); Glucose 272 mg/dL (70-105); Potassium 4.5 mmol/L (3.5-5.1); Sodium 138 mmol/L (136-145)
[2021-06-13 05:05] LABS: Band 52 % (5-11); Lymphocytes 4 % (21-51); MDiff Complete? YES; Macrocytosis MODERATE=16-30 cells (100X) (0-5/hpf); Monocytes 7 % (0-10); Myelocyte 22 % (0-0); Neutrophil 13 % (42-75); Platelet Morphology Comment Appears Decreased; Polychromasia SLIGHT = 2-3 cells (100X) (0-2/hpf); Promyelocytes 2 % (0-0); Target Cells SLIGHT = 2-5 cells (100X) (0-1/hpf); Tear Drops SLIGHT = 2-5 cells (100X) (0-1/hpf)
[2021-06-13] MEDS: Dexamethasone 4 mg/ml Vial SLOW IVP SCH ×2 (08:03→20:10)
[2021-06-13] MEDS: Pancrelipase DR 12,000 1 CAP PO SCH ×3 (08:04→17:26)
[2021-06-13] MEDS: Pantoprazole 40 MG VIAL IVP SCH (08:04)
[2021-06-13] MEDS: Lorazepam 1 MG TAB PER TUBE SCH ×3 (08:05→20:10)
[2021-06-13] MEDS: Valproate Sodium 250 mg/5 ml UD Cup PER TUBE SCH ×2 (08:05→20:10)
[2021-06-13] MEDS: Benztropine 1 MG TAB PO SCH ×2 (08:05→20:10)
[2021-06-13] MEDS: Lantus 1000 UNITS/10 ML VIAL SC SCH (08:07)
[2021-06-13] MEDS: Folic Acid 1 MG TAB PO SCH (08:07)
[2021-06-13] MEDS: Acetylcysteine 10% 100 MG/ML 30 ml Vial INH SCH ×3 (14:57→23:36)
[2021-06-13] MEDS: Lorazepam 2 MG/ML VIAL SLOW IVP PRN (21:22)
[2021-06-14] MEDS: Cefepime 2 GM in Sodium Chloride 0.9% 100 ML IVPB SCH ×3 (03:23→21:05)
[2021-06-14] MEDS: Propofol 1,000 MG/100 ML VIAL IV PRN ×4 (03:23→17:59)
[2021-06-14] MEDS: Vancomycin 1 GM in Premix Bag 1 BAG IVPB SCH ×3 (03:23→20:06)
[2021-06-14] MEDS: HumaLOG 300 UNITS/3 ML VIAL SC PRN ×4 (04:29→21:54)
[2021-06-14 04:33] LABS: Vancomycin, Trough 21.7 ug/mL
[2021-06-14 04:34] LABS: Anion Gap 10 mmol/L (10-20); BUN (Urea Nitrogen) 31 mg/dL (8.4-25.7); Calc. Creatinine Clearance 138 mL/min (70-130); Calcium 7.6 mg/dL (7.8-10.44); Carbon Dioxide 29 mmol/L (22-29); Chloride 102 mmol/L (98-107); Glucose 233 mg/dL (70-105); Potassium 4.6 mmol/L (3.5-5.1); Sodium 136 mmol/L (136-145)
[2021-06-14 04:35] LABS: Band 22 % (5-11); Hemoglobin 11.1 g/dL (14.0-18.0); Hypochromia SLIGHT = 6-15 cells (100X) (0-5/hpf); Lymphocytes 15 % (21-51); MDiff Complete? YES; Macrocytosis SLIGHT = 6-15 cells (100X) (0-5/hpf); Mean Corpuscular HGB CONC 33.7 g/dL (32.0-36.0); Mean Corpuscular Hemoglobin 34.5 pg (27.0-31.0); Mean Platelet Volume 11.3 fL (7.4-10.4); Monocytes 11 % (0-10); Neutrophil 52 % (42-75); Platelet Count 39 thou/uL (130-400); Platelet Morphology Comment Appears Decreased; Red Blood Cell (RBC) Count 3.23 mill/uL (4.70-6.10); White Blood Cell (WBC) Count 12.9 thou/uL (4.8-10.8)
[2021-06-14] MEDS: Lorazepam 1 MG TAB PER TUBE SCH ×3 (07:33→20:08)
[2021-06-14] MEDS: Pancrelipase DR 12,000 1 CAP PO SCH ×3 (07:33→17:18)
[2021-06-14] MEDS: Benztropine 1 MG TAB PO SCH ×2 (07:33→20:07)
[2021-06-14] MEDS: Valproate Sodium 250 mg/5 ml UD Cup PER TUBE SCH ×2 (07:34→21:14)
[2021-06-14] MEDS: Pantoprazole 40 MG VIAL IVP SCH (07:34)
[2021-06-14] MEDS: Dexamethasone 4 mg/ml Vial SLOW IVP SCH ×2 (07:34→20:07)
[2021-06-14] MEDS: Lantus 1000 UNITS/10 ML VIAL SC SCH (07:36)
[2021-06-14] MEDS: Folic Acid 1 MG TAB PO SCH (07:39)
[2021-06-14 08:09] LABS: Actual Bicarbonate (HCO3a) 25.9 mEq/L (22-28); Base Excess (BEa) 2.7 mEq/L (-2.0 to +3.0); CO2 Tension 35.1 mmHg (35.0-45.0); Calcium, Ionized (arterial) 1.11 mmol/L (1.12-1.30); Hemoglobin (Hb) 11.9 g/dL (14.0-18.0); O2 Tension (PaO2), arterial 65.4 mmHg (80.0-100.0); Potassium - ABG Lab 4.22 mmol/L (3.70-5.30); pH, Arterial 7.49 (7.35-7.45)
[2021-06-14 08:16] LABS: ALV-art Gradient 175.925 mmHg (0-20); Puncture Site LRA
[2021-06-14] MEDS: Acetylcysteine 10% 100 MG/ML 30 ml Vial INH SCH ×4 (08:21→23:37)
[2021-06-14] MEDS: Haloperidol Lactate 5 MG/ML VIAL SLOW IVP SCH ×3 (14:17→20:17)
[2021-06-14 15:00] LABS: ALT (SGPT) 218 U/L (8-55); AST (SGOT) 69 U/L (5-34)
[2021-06-14] MEDS: Lorazepam 2 MG/ML VIAL SLOW IVP PRN ×2 (19:50→23:22)
[2021-06-14 22:17] LABS: Vancomycin, Trough 47.9 ug/mL
[2021-06-15] MEDS: Haloperidol Lactate 5 MG/ML VIAL SLOW IVP SCH ×4 (00:17→15:41)
[2021-06-15] MEDS: Cefepime 2 GM in Sodium Chloride 0.9% 100 ML IVPB SCH ×3 (03:11→20:01)
[2021-06-15 03:52] LABS: Hemoglobin 10.9 g/dL (14.0-18.0); Mean Corpuscular HGB CONC 33.5 g/dL (32.0-36.0); Mean Corpuscular Hemoglobin 33.8 pg (27.0-31.0); Mean Platelet Volume 9.9 fL (7.4-10.4); Platelet Count 72 thou/uL (130-400); RBC Distribution Width 12.9 % (11.5-14.5); Red Blood Cell (RBC) Count 3.23 mill/uL (4.70-6.10); White Blood Cell (WBC) Count 22.6 thou/uL (4.8-10.8)
[2021-06-15 04:16] LABS: Vancomycin, Trough 12.8 ug/mL
[2021-06-15 04:18] LABS: Anion Gap 9 mmol/L (10-20); BUN (Urea Nitrogen) 28 mg/dL (8.4-25.7); Calc. Creatinine Clearance 144 mL/min (70-130); Calcium 7.6 mg/dL (7.8-10.44); Carbon Dioxide 31 mmol/L (22-29); Chloride 100 mmol/L (98-107); Glucose 144 mg/dL (70-105); Potassium 4.7 mmol/L (3.5-5.1); Sodium 135 mmol/L (136-145)
[2021-06-15] MEDS: Vancomycin 1 GM in Premix Bag 1 BAG IVPB SCH ×3 (05:16→20:03)
[2021-06-15] MEDS: Propofol 1,000 MG/100 ML VIAL IV PRN ×3 (05:42→20:00)
[2021-06-15 05:55] LABS: Band 50 % (5-11); Lymphocytes 4 % (21-51); MDiff Complete? YES; Metamyelocyte 1 % (0-0); Monocytes 10 % (0-10); Myelocyte 4 % (0-0); Neutrophil 31 % (42-75); Platelet Morphology Comment Appears Decreased
[2021-06-15] MEDS: Lorazepam 1 MG TAB PER TUBE SCH ×3 (07:57→20:01)
[2021-06-15] MEDS: Valproate Sodium 250 mg/5 ml UD Cup PER TUBE SCH ×2 (07:57→21:15)
[2021-06-15] MEDS: Dexamethasone 4 mg/ml Vial SLOW IVP SCH ×2 (07:57→20:01)
[2021-06-15] MEDS: Pantoprazole 40 MG VIAL IVP SCH (07:58)
[2021-06-15] MEDS: Pancrelipase DR 12,000 1 CAP PO SCH ×3 (07:58→15:41)
[2021-06-15] MEDS: Folic Acid 1 MG TAB PO SCH (07:58)
[2021-06-15] MEDS: Benztropine 1 MG TAB PO SCH ×2 (07:58→20:04)
[2021-06-15] MEDS: Lantus 1000 UNITS/10 ML VIAL SC SCH (08:01)
[2021-06-15] MEDS: Acetylcysteine 10% 100 MG/ML 30 ml Vial INH SCH (08:27)
[2021-06-15] MEDS: Vecuronium 10 MG VIAL IVP PRN (08:43)
[2021-06-15] MEDS: HumaLOG 300 UNITS/3 ML VIAL SC PRN ×3 (08:43→22:44)
[2021-06-15 08:53] LABS: Actual Bicarbonate (HCO3a) 24.9 mEq/L (22-28); Base Excess (BEa) 2.3 mEq/L (-2.0 to +3.0); CO2 Tension 31.5 mmHg (35.0-45.0); Calcium, Ionized (arterial) 1.06 mmol/L (1.12-1.30); Hemoglobin (Hb) 10.7 g/dL (14.0-18.0); O2 Tension (PaO2), arterial 80.5 mmHg (80.0-100.0); pH, Arterial 7.52 (7.35-7.45)
[2021-06-15 12:02] LABS: Puncture Site LRA
[2021-06-15 12:03] LABS: ALV-art Gradient 165.325 mmHg (0-20)
[2021-06-15] MEDS: Lorazepam 2 MG/ML VIAL SLOW IVP PRN ×2 (21:15→22:23)
[2021-06-16] MEDS: Haloperidol Lactate 5 MG/ML VIAL SLOW IVP SCH ×4 (00:28→17:09)
[2021-06-16] MEDS: hydrALAZINE 20 MG/ML VIAL SLOW IVP PRN (02:04)
[2021-06-16] MEDS: Cefepime 2 GM in Sodium Chloride 0.9% 100 ML IVPB SCH ×3 (03:26→19:30)
[2021-06-16] MEDS: Propofol 1,000 MG/100 ML VIAL IV PRN ×2 (03:27→17:13)
[2021-06-16 04:11] LABS: Vancomycin, Trough 14.8 ug/mL
[2021-06-16 04:12] LABS: Anion Gap 10 mmol/L (10-20); BUN (Urea Nitrogen) 28 mg/dL (8.4-25.7); Calc. Creatinine Clearance 146 mL/min (70-130); Calcium 7.6 mg/dL (7.8-10.44); Carbon Dioxide 30 mmol/L (22-29); Chloride 98 mmol/L (98-107); Glucose 229 mg/dL (70-105); Potassium 4.9 mmol/L (3.5-5.1); Sodium 133 mmol/L (136-145)
[2021-06-16] MEDS: Vancomycin 1 GM in Premix Bag 1 BAG IVPB SCH ×3 (04:15→19:31)
[2021-06-16] MEDS: HumaLOG 300 UNITS/3 ML VIAL SC PRN ×4 (04:18→22:23)
[2021-06-16 04:57] LABS: Band 42 % (5-11); Hemoglobin 10.6 g/dL (14.0-18.0); Lymphocytes 11 % (21-51); MDiff Complete? YES; Mean Corpuscular HGB CONC 33.3 g/dL (32.0-36.0); Mean Corpuscular Hemoglobin 33.8 pg (27.0-31.0); Monocytes 4 % (0-10); Neutrophil 43 % (42-75); Platelet Count 85 thou/uL (130-400); Platelet Morphology Comment Appears Decreased; RBC Distribution Width 13.2 % (11.5-14.5); Red Blood Cell (RBC) Count 3.15 mill/uL (4.70-6.10); White Blood Cell (WBC) Count 16.7 thou/uL (4.8-10.8)
[2021-06-16 08:29] LABS: Actual Bicarbonate (HCO3a) 31.1 mEq/L (22-28); Base Excess (BEa) 7.4 mEq/L (-2.0 to +3.0); CO2 Tension 40.5 mmHg (35.0-45.0); Calcium, Ionized (arterial) 1.05 mmol/L (1.12-1.30); Carboxyhemoglobin (COHb) 1.1 gm% (0.0-3.0); Hemoglobin (Hb) 10.6 g/dL (14.0-18.0); O2 Tension (PaO2), arterial 66.5 mmHg (80.0-100.0); Potassium - ABG Lab 4.36 mmol/L (3.70-5.30)
[2021-06-16 08:30] LABS: Puncture Site LRA
[2021-06-16 08:31] LABS: ALV-art Gradient 168.075 mmHg (0-20)
[2021-06-16] MEDS: Dexamethasone 4 mg/ml Vial SLOW IVP SCH ×2 (08:51→21:34)
[2021-06-16] MEDS: Valproate Sodium 250 mg/5 ml UD Cup PER TUBE SCH ×2 (08:51→21:34)
[2021-06-16] MEDS: Pantoprazole 40 MG VIAL IVP SCH (08:51)
[2021-06-16] MEDS: Pancrelipase DR 12,000 1 CAP PO SCH ×3 (08:52→16:18)
[2021-06-16] MEDS: Lorazepam 1 MG TAB PER TUBE SCH ×3 (08:52→21:34)
[2021-06-16] MEDS: Benztropine 1 MG TAB PO SCH ×2 (08:52→21:33)
[2021-06-16] MEDS: Lantus 1000 UNITS/10 ML VIAL SC SCH (08:53)
[2021-06-16] MEDS: Folic Acid 1 MG TAB PO SCH (08:53)
[2021-06-16] MEDS: Vecuronium 10 MG VIAL IVP PRN ×3 (09:18→17:09)
[2021-06-16] MEDS: Lorazepam 2 MG/ML VIAL SLOW IVP PRN ×2 (12:37→16:18)
[2021-06-16] MEDS ORDERED: Morphine 4 MG/ML VIAL ONE (16:53)
[2021-06-17] MEDS: Haloperidol Lactate 5 MG/ML VIAL SLOW IVP SCH ×4 (00:14→17:32)
[2021-06-17] MEDS: hydrALAZINE 20 MG/ML VIAL SLOW IVP PRN ×2 (01:03→11:31)
[2021-06-17] MEDS: Propofol 1,000 MG/100 ML VIAL IV PRN ×2 (01:58→11:31)
[2021-06-17] MEDS: Cefepime 2 GM in Sodium Chloride 0.9% 100 ML IVPB SCH ×3 (03:45→19:42)
[2021-06-17] MEDS: Vancomycin 1 GM in Premix Bag 1 BAG IVPB SCH ×3 (03:47→20:56)
[2021-06-17] MEDS: HumaLOG 300 UNITS/3 ML VIAL SC PRN ×3 (04:33→21:24)
[2021-06-17 05:12] LABS: Anion Gap 10 mmol/L (10-20); BUN (Urea Nitrogen) 28 mg/dL (8.4-25.7); Calc. Creatinine Clearance 134 mL/min (70-130); Calcium 7.5 mg/dL (7.8-10.44); Carbon Dioxide 32 mmol/L (22-29); Chloride 94 mmol/L (98-107); Glucose 242 mg/dL (70-105); Potassium 4.9 mmol/L (3.5-5.1); Sodium 131 mmol/L (136-145)
[2021-06-17 05:15] LABS: Band 26 % (5-11); Hemoglobin 10.2 g/dL (14.0-18.0); Lymphocytes 1 % (21-51); MDiff Complete? YES; Mean Corpuscular HGB CONC 34.5 g/dL (32.0-36.0); Mean Corpuscular Hemoglobin 35.2 pg (27.0-31.0); Mean Platelet Volume 9.2 fL (7.4-10.4); Monocytes 3 % (0-10); Myelocyte 1 % (0-0); Neutrophil 68 % (42-75); Platelet Count 112 thou/uL (130-400); Platelet Morphology Comment Appears Decreased; RBC Distribution Width 13.5 % (11.5-14.5); Reactive Lymphocytes 1 % (0-10); Toxic Granulation SLIGHT; White Blood Cell (WBC) Count 19.7 thou/uL (4.8-10.8)
[2021-06-17] MEDS: Pancrelipase DR 12,000 1 CAP PO SCH ×3 (06:41→17:32)
[2021-06-17 08:06] LABS: Actual Bicarbonate (HCO3a) 27.6 mEq/L (22-28); Base Excess (BEa) 4.8 mEq/L (-2.0 to +3.0); CO2 Tension 33.9 mmHg (35.0-45.0); Calcium, Ionized (arterial) 1.09 mmol/L (1.12-1.30); Carboxyhemoglobin (COHb) 0.6 gm% (0.0-3.0); Hemoglobin (Hb) 9.9 g/dL (14.0-18.0); O2 Tension (PaO2), arterial 87.3 mmHg (80.0-100.0); Potassium - ABG Lab 4.42 mmol/L (3.70-5.30); pH, Arterial 7.53 (7.35-7.45)
[2021-06-17 08:11] LABS: Puncture Site LRA
[2021-06-17 08:12] LABS: ALV-art Gradient 155.525 mmHg (0-20)
[2021-06-17] MEDS: Benztropine 1 MG TAB PO SCH ×2 (08:59→20:57)
[2021-06-17] MEDS: Dexamethasone 4 mg/ml Vial SLOW IVP SCH ×2 (08:59→20:57)
[2021-06-17] MEDS: Lantus 1000 UNITS/10 ML VIAL SC SCH (09:00)
[2021-06-17] MEDS: Pantoprazole 40 MG VIAL IVP SCH (09:00)
[2021-06-17] MEDS: Folic Acid 1 MG TAB PO SCH (09:00)
[2021-06-17] MEDS: Lorazepam 1 MG TAB PER TUBE SCH ×3 (09:00→20:57)
[2021-06-17] MEDS: Valproate Sodium 250 mg/5 ml UD Cup PER TUBE SCH ×2 (09:04→20:57)
[2021-06-17] MEDS: Morphine 4 MG/ML VIAL SLOW IVP PRN ×2 (10:44→11:45)
[2021-06-17] MEDS: Lorazepam 2 MG/ML VIAL SLOW IVP PRN (11:54)
[2021-06-17] MEDS ORDERED: Furosemide 40 MG/4 ML VIAL IVP SCH (18:38)
[2021-06-17] MEDS: niCARdipine 25 MG in Sodium Chloride 0.9% 250 ML 250 ML IVPB SCH (19:42)
[2021-06-18] MEDS: Haloperidol Lactate 5 MG/ML VIAL SLOW IVP SCH ×2 (00:07→05:56)
[2021-06-18] MEDS: niCARdipine 25 MG in Sodium Chloride 0.9% 250 ML 250 ML IVPB SCH ×2 (01:14→07:36)
[2021-06-18] MEDS: Cefepime 2 GM in Sodium Chloride 0.9% 100 ML IVPB SCH ×4 (04:23→22:48)
[2021-06-18] MEDS: HumaLOG 300 UNITS/3 ML VIAL SC PRN ×3 (04:38→15:57)
[2021-06-18] MEDS: Vancomycin 1 GM in Premix Bag 1 BAG IVPB SCH (04:46)
[2021-06-18] MEDS: Propofol 1,000 MG/100 ML VIAL IV PRN ×3 (04:47→17:34)
[2021-06-18 05:52] LABS: Anion Gap 8 mmol/L (10-20); BUN (Urea Nitrogen) 35 mg/dL (8.4-25.7); Calc. Creatinine Clearance 136 mL/min (70-130); Calcium 7.4 mg/dL (7.8-10.44); Carbon Dioxide 31 mmol/L (22-29); Chloride 97 mmol/L (98-107); Glucose 237 mg/dL (70-105); Potassium 4.7 mmol/L (3.5-5.1); Sodium 131 mmol/L (136-145)
[2021-06-18 06:26] LABS: Mean Corpuscular HGB CONC 34.7 g/dL (32.0-36.0); Mean Corpuscular Hemoglobin 35.2 pg (27.0-31.0); Mean Platelet Volume 9.3 fL (7.4-10.4); Platelet Count 154 thou/uL (130-400); RBC Distribution Width 13.4 % (11.5-14.5); Red Blood Cell (RBC) Count 2.83 mill/uL (4.70-6.10); White Blood Cell (WBC) Count 18.1 thou/uL (4.8-10.8)
[2021-06-18] MEDS: Pancrelipase DR 12,000 1 CAP PO SCH ×3 (07:15→15:35)
[2021-06-18] MEDS: Dexamethasone 4 mg/ml Vial SLOW IVP SCH ×2 (07:36→20:49)
[2021-06-18] MEDS: Valproate Sodium 250 mg/5 ml UD Cup PER TUBE SCH ×2 (07:37→20:49)
[2021-06-18] MEDS: Folic Acid 1 MG TAB PO SCH (07:37)
[2021-06-18] MEDS: Pantoprazole 40 MG VIAL IVP SCH (07:37)
[2021-06-18] MEDS: Benztropine 1 MG TAB PO SCH ×2 (07:37→20:48)
[2021-06-18] MEDS: Lorazepam 1 MG TAB PER TUBE SCH ×3 (07:37→20:48)
[2021-06-18] MEDS: Lantus 1000 UNITS/10 ML VIAL SC SCH (07:38)
[2021-06-18 08:24] LABS: Band 17 % (5-11); Lymphocytes 4 % (21-51); MDiff Complete? YES; Metamyelocyte 1 % (0-0); Monocytes 4 % (0-10); Myelocyte 4 % (0-0); Neutrophil 70 % (42-75); Platelet Morphology Comment Appears Adequate; Polychromasia SLIGHT = 2-3 cells (100X) (0-2/hpf)
[2021-06-18 08:31] LABS: Actual Bicarbonate (HCO3a) 28.4 mEq/L (22-28); Base Excess (BEa) 4.7 mEq/L (-2.0 to +3.0); CO2 Tension 38.5 mmHg (35.0-45.0); Calcium, Ionized (arterial) 1.05 mmol/L (1.12-1.30); Carboxyhemoglobin (COHb) 1.1 gm% (0.0-3.0); Hemoglobin (Hb) 12.5 g/dL (14.0-18.0); O2 Tension (PaO2), arterial 74.9 mmHg (80.0-100.0); pH, Arterial 7.49 (7.35-7.45)
[2021-06-18 08:32] LABS: ALV-art Gradient 162.175 mmHg (0-20); Puncture Site LRA
[2021-06-18] MEDS ORDERED: Furosemide 40 MG/4 ML VIAL SLOW IVP SCH (09:00)
[2021-06-18] MEDS: Lisinopril 20 MG TAB PO SCH (11:41)
[2021-06-18] MEDS: Amlodipine 10 MG TAB PO SCH (11:41)
[2021-06-18 11:42] LABS: Vancomycin, Trough 25.2 ug/mL
[2021-06-18] MEDS: risperiDONE 1 MG TAB PO SCH ×2 (11:42→20:48)
[2021-06-18] MEDS: NPH, Human Insulin Isophane 300 UNIT/3 ML VIAL SC SCH ×2 (13:01→17:30)
[2021-06-18] MEDS: Morphine 4 MG/ML VIAL SLOW IVP PRN (15:23)
[2021-06-18] MEDS: Vancomycin HCl 750 MG in Sodium Chloride 0.9% 250 ML 250 ML IVPB SCH (20:48)
[2021-06-18] MEDS: Furosemide 40 MG/4 ML VIAL SLOW IVP SCH (20:50)
[2021-06-18] MEDS: Lorazepam 2 MG/ML VIAL SLOW IVP PRN (22:02)
[2021-06-18] MEDS: Vecuronium 10 MG VIAL IVP PRN (22:02)
[2021-06-19] MEDS: NPH, Human Insulin Isophane 300 UNIT/3 ML VIAL SC SCH ×4 (00:31→17:36)
[2021-06-19] MEDS: Lorazepam 2 MG/ML VIAL SLOW IVP PRN ×2 (00:39→05:31)
[2021-06-19] MEDS: Propofol 1,000 MG/100 ML VIAL IV PRN ×3 (02:11→17:35)
[2021-06-19] MEDS: Vancomycin HCl 750 MG in Sodium Chloride 0.9% 250 ML 250 ML IVPB SCH ×3 (04:06→21:33)
[2021-06-19] MEDS: HumaLOG 300 UNITS/3 ML VIAL SC PRN ×3 (04:32→15:41)
[2021-06-19 04:53] LABS: Hemoglobin 10.2 g/dL (14.0-18.0); Mean Corpuscular HGB CONC 33.8 g/dL (32.0-36.0); Mean Corpuscular Hemoglobin 34.2 pg (27.0-31.0); Mean Platelet Volume 8.8 fL (7.4-10.4); Platelet Count 220 thou/uL (130-400); RBC Distribution Width 13.6 % (11.5-14.5); Red Blood Cell (RBC) Count 2.98 mill/uL (4.70-6.10)
[2021-06-19 04:57] LABS: Band 11 % (5-11); Hypochromia SLIGHT = 6-15 cells (100X) (0-5/hpf); Lymphocytes 2 % (21-51); MDiff Complete? YES; Monocytes 15 % (0-10); Neutrophil 72 % (42-75); Platelet Morphology Comment Appears Adequate
[2021-06-19 04:58] LABS: Anion Gap 9 mmol/L (10-20); BUN (Urea Nitrogen) 39 mg/dL (8.4-25.7); Calc. Creatinine Clearance 133 mL/min (70-130); Calcium 7.7 mg/dL (7.8-10.44); Carbon Dioxide 31 mmol/L (22-29); Chloride 95 mmol/L (98-107); Glucose 205 mg/dL (70-105); Potassium 4.8 mmol/L (3.5-5.1); Sodium 130 mmol/L (136-145)
[2021-06-19] MEDS: Cefepime 2 GM in Sodium Chloride 0.9% 100 ML IVPB SCH ×3 (06:19→23:11)
[2021-06-19] MEDS: Pancrelipase DR 12,000 1 CAP PO SCH ×3 (07:54→17:35)
[2021-06-19] MEDS: Valproate Sodium 250 mg/5 ml UD Cup PER TUBE SCH ×2 (08:01→21:35)
[2021-06-19] MEDS: risperiDONE 1 MG TAB PO SCH ×2 (08:02→21:35)
[2021-06-19 08:03] LABS: Actual Bicarbonate (HCO3a) 28.7 mEq/L (22-28); Base Excess (BEa) 4.9 mEq/L (-2.0 to +3.0); CO2 Tension 39.3 mmHg (35.0-45.0); Calcium, Ionized (arterial) 1.02 mmol/L (1.12-1.30); Carboxyhemoglobin (COHb) 0.5 gm% (0.0-3.0); Hemoglobin (Hb) 8.4 g/dL (14.0-18.0); O2 Tension (PaO2), arterial 74.6 mmHg (80.0-100.0); Potassium - ABG Lab 4.26 mmol/L (3.70-5.30); pH, Arterial 7.48 (7.35-7.45)
[2021-06-19] MEDS: Benztropine 1 MG TAB PO SCH ×2 (08:03→21:34)
[2021-06-19] MEDS: Lorazepam 1 MG TAB PER TUBE SCH ×3 (08:03→21:35)
[2021-06-19] MEDS: Folic Acid 1 MG TAB PO SCH (08:03)
[2021-06-19] MEDS: Dexamethasone 4 mg/ml Vial SLOW IVP SCH ×2 (08:03→21:34)
[2021-06-19] MEDS: Amlodipine 10 MG TAB PO SCH (08:03)
[2021-06-19] MEDS: Lisinopril 20 MG TAB PO SCH (08:03)
[2021-06-19] MEDS: Pantoprazole 40 MG VIAL IVP SCH (08:04)
[2021-06-19] MEDS: Furosemide 40 MG/4 ML VIAL SLOW IVP SCH ×2 (08:04→21:35)
[2021-06-19 08:09] LABS: Puncture Site LRA
[2021-06-19 08:10] LABS: ALV-art Gradient 161.475 mmHg (0-20)
[2021-06-19 20:45] LABS: Vancomycin, Trough 14.4 ug/mL
[2021-06-19] MEDS: Enoxaparin Sodium 40 MG/0.4 ML SYRINGE SC SCH (21:34)
[2021-06-20] MEDS: NPH, Human Insulin Isophane 300 UNIT/3 ML VIAL SC SCH ×4 (00:15→18:08)
[2021-06-20] MEDS: Propofol 1,000 MG/100 ML VIAL IV PRN (01:00)
[2021-06-20] MEDS: Vancomycin HCl 750 MG in Sodium Chloride 0.9% 250 ML 250 ML IVPB SCH (04:20)
[2021-06-20] MEDS: HumaLOG 300 UNITS/3 ML VIAL SC PRN ×3 (04:42→16:30)
[2021-06-20 04:55] LABS: #Lymphocytes 0.7 thou/uL (1.20-3.40); #Monocytes 1.2 thou/uL (0.11-0.59); #Neutrophils 13.4 thou/uL (1.40-6.50); %Eosinophils 0.1 % (0.0-10.0); %Lymphocytes 4.8 % (21.0-51.0); %Monocytes 7.7 % (0.0-10.0); %Neutrophils 87.4 % (42.0-75.0); Hemoglobin 9.4 g/dL (14.0-18.0); Mean Corpuscular HGB CONC 34.4 g/dL (32.0-36.0); Mean Corpuscular Hemoglobin 34.5 pg (27.0-31.0); Mean Platelet Volume 8.4 fL (7.4-10.4); Platelet Count 254 thou/uL (130-400); RBC Distribution Width 13.7 % (11.5-14.5); Red Blood Cell (RBC) Count 2.71 mill/uL (4.70-6.10); White Blood Cell (WBC) Count 15.3 thou/uL (4.8-10.8)
[2021-06-20 05:14] LABS: Anion Gap 9 mmol/L (10-20); BUN (Urea Nitrogen) 42 mg/dL (8.4-25.7); Calc. Creatinine Clearance 132 mL/min (70-130); Calcium 7.6 mg/dL (7.8-10.44); Carbon Dioxide 33 mmol/L (22-29); Chloride 94 mmol/L (98-107); Glucose 329 mg/dL (70-105); Potassium 4.6 mmol/L (3.5-5.1); Sodium 131 mmol/L (136-145)
[2021-06-20] MEDS: Cefepime 2 GM in Sodium Chloride 0.9% 100 ML IVPB SCH ×3 (06:14→21:36)
[2021-06-20 07:18] LABS: Actual Bicarbonate (HCO3a) 32.3 mEq/L (22-28); Base Excess (BEa) 8.2 mEq/L (-2.0 to +3.0); Calcium, Ionized (arterial) 1.08 mmol/L (1.12-1.30); Carboxyhemoglobin (COHb) 0.6 gm% (0.0-3.0); Hemoglobin (Hb) 8.9 g/dL (14.0-18.0); O2 Tension (PaO2), arterial 84.9 mmHg (80.0-100.0); Potassium - ABG Lab 4.24 mmol/L (3.70-5.30); pH, Arterial 7.49 (7.35-7.45)
[2021-06-20 08:10] LABS: Puncture Site LRA
[2021-06-20] MEDS: Folic Acid 1 MG TAB PO SCH (08:19)
[2021-06-20] MEDS: Pancrelipase DR 12,000 1 CAP PO SCH ×3 (08:19→17:11)
[2021-06-20] MEDS: Benztropine 1 MG TAB PO SCH ×2 (08:19→20:30)
[2021-06-20] MEDS: Valproate Sodium 250 mg/5 ml UD Cup PER TUBE SCH ×2 (08:19→20:31)
[2021-06-20] MEDS: Dexamethasone 4 mg/ml Vial SLOW IVP SCH ×2 (08:19→20:31)
[2021-06-20] MEDS: Pantoprazole 40 MG GRANULES PACKET PER TUBE SCH (08:20)
[2021-06-20] MEDS: Lorazepam 1 MG TAB PER TUBE SCH ×3 (08:20→20:30)
[2021-06-20] MEDS: Lisinopril 20 MG TAB PO SCH (08:20)
[2021-06-20] MEDS: risperiDONE 1 MG TAB PO SCH ×2 (08:20→20:30)
[2021-06-20] MEDS: Amlodipine 10 MG TAB PO SCH (08:20)
[2021-06-20] MEDS: Enoxaparin Sodium 40 MG/0.4 ML SYRINGE SC SCH ×2 (08:21→20:31)
[2021-06-20] MEDS: Furosemide 40 MG/4 ML VIAL SLOW IVP SCH ×2 (08:21→20:31)
[2021-06-20] MEDS: Amlodipine 5 MG TAB PO SCH (12:49)
[2021-06-20] MEDS: Lisinopril 10 MG TAB PO SCH (12:50)
[2021-06-20] MEDS: Morphine 4 MG/ML VIAL SLOW IVP PRN ×3 (14:25→21:36)
[2021-06-20] MEDS: hydrALAZINE 20 MG/ML VIAL SLOW IVP PRN (19:38)
[2021-06-20] MEDS: Atorvastatin Calcium 40 MG TAB PO SCH (20:30)
[2021-06-20] MEDS: niCARdipine 25 MG in Sodium Chloride 0.9% 250 ML 250 ML IVPB SCH (20:37)
[2021-06-21] MEDS: NPH, Human Insulin Isophane 300 UNIT/3 ML VIAL SC SCH ×4 (00:48→17:05)
[2021-06-21 04:44] LABS: #Lymphocytes 0.7 thou/uL (1.20-3.40); #Monocytes 1.1 thou/uL (0.11-0.59); #Neutrophils 10.1 thou/uL (1.40-6.50); %Basophils 0.1 % (0.0-1.0); %Eosinophils 0.3 % (0.0-10.0); %Lymphocytes 5.7 % (21.0-51.0); %Neutrophils 84.9 % (42.0-75.0); Hemoglobin 9.8 g/dL (14.0-18.0); Mean Corpuscular HGB CONC 36.2 g/dL (32.0-36.0); Mean Corpuscular Hemoglobin 36.4 pg (27.0-31.0); Platelet Count 287 thou/uL (130-400); RBC Distribution Width 13.8 % (11.5-14.5); Red Blood Cell (RBC) Count 2.68 mill/uL (4.70-6.10); White Blood Cell (WBC) Count 11.8 thou/uL (4.8-10.8)
[2021-06-21 05:22] LABS: Anion Gap 9 mmol/L (10-20); BUN (Urea Nitrogen) 32 mg/dL (8.4-25.7); Calc. Creatinine Clearance 150 mL/min (70-130); Carbon Dioxide 33 mmol/L (22-29); Chloride 93 mmol/L (98-107); Glucose 187 mg/dL (70-105); Potassium 4.3 mmol/L (3.5-5.1); Sodium 131 mmol/L (136-145)
[2021-06-21] MEDS: Cefepime 2 GM in Sodium Chloride 0.9% 100 ML IVPB SCH ×2 (06:06→14:38)
[2021-06-21] MEDS: HumaLOG 300 UNITS/3 ML VIAL SC PRN ×2 (06:42→16:10)
[2021-06-21] MEDS: Pancrelipase DR 12,000 1 CAP PO SCH ×3 (08:05→17:05)
[2021-06-21] MEDS: Aspirin Chewable 81 MG TAB PO SCH (08:05)
[2021-06-21] MEDS: Benztropine 1 MG TAB PO SCH ×2 (08:05→21:07)
[2021-06-21] MEDS: Dexamethasone 4 mg/ml Vial SLOW IVP SCH ×2 (08:06→21:09)
[2021-06-21] MEDS: Amlodipine 5 MG TAB PO SCH (08:06)
[2021-06-21] MEDS: Lorazepam 1 MG TAB PER TUBE SCH ×3 (08:06→21:07)
[2021-06-21] MEDS: Folic Acid 1 MG TAB PO SCH (08:06)
[2021-06-21] MEDS: risperiDONE 1 MG TAB PO SCH ×2 (08:06→21:07)
[2021-06-21] MEDS: Furosemide 40 MG/4 ML VIAL SLOW IVP SCH ×2 (08:06→21:09)
[2021-06-21] MEDS: Enoxaparin Sodium 40 MG/0.4 ML SYRINGE SC SCH ×2 (08:07→21:05)
[2021-06-21] MEDS: Valproate Sodium 250 mg/5 ml UD Cup PER TUBE SCH ×2 (08:08→21:06)
[2021-06-21] MEDS: Lisinopril 10 MG TAB PO SCH (08:13)
[2021-06-21] MEDS: Pantoprazole 40 MG GRANULES PACKET PER TUBE SCH (08:14)
[2021-06-21] MEDS: Lorazepam 2 MG/ML VIAL SLOW IVP PRN ×2 (17:04→20:00)
[2021-06-21] MEDS: Atorvastatin Calcium 40 MG TAB PO SCH (21:07)
[2021-06-21] MEDS: Cefepime 1 GM in Sodium Chloride 0.9% 100 ML IVPB SCH (21:08)
[2021-06-21] MEDS: Dextrose 50% Abboject 50 ML SYRINGE SLOW IVP PRN ×2 (22:08→23:27)
[2021-06-21] MEDS: Dextrose 10% in Water 1,000 ML IV SCH (23:47)
[2021-06-22] MEDS: NPH, Human Insulin Isophane 300 UNIT/3 ML VIAL SC SCH ×3 (01:23→21:21)
[2021-06-22 04:20] LABS: #Lymphocytes 0.6 thou/uL (1.20-3.40); #Monocytes 1.3 thou/uL (0.11-0.59); #Neutrophils 17.5 thou/uL (1.40-6.50); %Eosinophils 0.2 % (0.0-10.0); %Lymphocytes 3.3 % (21.0-51.0); %Monocytes 6.8 % (0.0-10.0); %Neutrophils 89.8 % (42.0-75.0); Hemoglobin 9.4 g/dL (14.0-18.0); Mean Corpuscular HGB CONC 34.8 g/dL (32.0-36.0); Mean Corpuscular Hemoglobin 35.1 pg (27.0-31.0); Mean Platelet Volume 7.9 fL (7.4-10.4); Platelet Count 361 thou/uL (130-400); Red Blood Cell (RBC) Count 2.67 mill/uL (4.70-6.10); White Blood Cell (WBC) Count 19.5 thou/uL (4.8-10.8)
[2021-06-22 04:33] LABS: Anion Gap 9 mmol/L (10-20); BUN (Urea Nitrogen) 27 mg/dL (8.4-25.7); Calc. Creatinine Clearance 139 mL/min (70-130); Carbon Dioxide 34 mmol/L (22-29); Chloride 90 mmol/L (98-107); Glucose 222 mg/dL (70-105); Sodium 129 mmol/L (136-145)
[2021-06-22] MEDS: Cefepime 2 GM in Sodium Chloride 0.9% 100 ML IVPB SCH (09:36)
[2021-06-22] MEDS: risperiDONE 1 MG TAB PO SCH ×2 (09:37→20:42)
[2021-06-22] MEDS: Enoxaparin Sodium 40 MG/0.4 ML SYRINGE SC SCH ×2 (09:37→20:43)
[2021-06-22] MEDS: Aspirin Chewable 81 MG TAB PO SCH (09:37)
[2021-06-22] MEDS: Pancrelipase DR 12,000 1 CAP PO SCH ×3 (09:37→17:10)
[2021-06-22] MEDS: Lisinopril 10 MG TAB PO SCH (09:38)
[2021-06-22] MEDS: Amlodipine 5 MG TAB PO SCH (09:38)
[2021-06-22] MEDS: Valproate Sodium 250 mg/5 ml UD Cup PER TUBE SCH ×2 (09:39→20:42)
[2021-06-22] MEDS: Lorazepam 1 MG TAB PER TUBE SCH ×3 (09:39→20:42)
[2021-06-22] MEDS: Pantoprazole 40 MG GRANULES PACKET PER TUBE SCH (09:39)
[2021-06-22] MEDS: Folic Acid 1 MG TAB PO SCH (09:39)
[2021-06-22] MEDS: Benztropine 1 MG TAB PO SCH ×2 (09:39→20:42)
[2021-06-22] MEDS: Dexamethasone 4 mg/ml Vial SLOW IVP SCH ×2 (09:40→20:42)
[2021-06-22] MEDS: Furosemide 40 MG/4 ML VIAL SLOW IVP SCH ×2 (09:45→20:42)
[2021-06-22] MEDS: Cefepime 1 GM in Sodium Chloride 0.9% 100 ML IVPB SCH ×2 (09:45→20:43)
[2021-06-22] MEDS: HumaLOG 300 UNITS/3 ML VIAL SC PRN ×3 (10:00→21:22)
[2021-06-22] MEDS: guaiFENesin 200 MG TAB PER TUBE PRN (14:39)
[2021-06-22] MEDS: hydrALAZINE 20 MG/ML VIAL SLOW IVP PRN (18:22)
[2021-06-22] MEDS: Dextrose 10% in Water 1,000 ML IV SCH (20:41)
[2021-06-22] MEDS: Atorvastatin Calcium 40 MG TAB PO SCH (20:42)
[2021-06-23] MEDS: Lorazepam 2 MG/ML VIAL SLOW IVP PRN (01:42)
[2021-06-23] MEDS: guaiFENesin 200 MG TAB PER TUBE PRN (01:42)
[2021-06-23 04:50] LABS: #Lymphocytes 0.8 thou/uL (1.20-3.40); #Monocytes 0.9 thou/uL (0.11-0.59); #Neutrophils 7.9 thou/uL (1.40-6.50); %Basophils 0.2 % (0.0-1.0); %Eosinophils 0.3 % (0.0-10.0); %Lymphocytes 8.4 % (21.0-51.0); %Monocytes 9.4 % (0.0-10.0); %Neutrophils 81.8 % (42.0-75.0); Hemoglobin 8.9 g/dL (14.0-18.0); Mean Corpuscular Hemoglobin 35.2 pg (27.0-31.0); Mean Platelet Volume 8.2 fL (7.4-10.4); Platelet Count 308 thou/uL (130-400); RBC Distribution Width 14.1 % (11.5-14.5); Red Blood Cell (RBC) Count 2.53 mill/uL (4.70-6.10); White Blood Cell (WBC) Count 9.6 thou/uL (4.8-10.8)
[2021-06-23 05:09] LABS: Anion Gap 10 mmol/L (10-20); BUN (Urea Nitrogen) 20 mg/dL (8.4-25.7); Calc. Creatinine Clearance 142 mL/min (70-130); Calcium 8.1 mg/dL (7.8-10.44); Carbon Dioxide 32 mmol/L (22-29); Chloride 93 mmol/L (98-107); Glucose 202 mg/dL (70-105); Potassium 4.2 mmol/L (3.5-5.1); Sodium 131 mmol/L (136-145)
[2021-06-23] MEDS: HumaLOG 300 UNITS/3 ML VIAL SC PRN ×3 (05:24→21:21)
[2021-06-23] MEDS: Valproate Sodium 250 mg/5 ml UD Cup PER TUBE SCH ×3 (08:01→21:29)
[2021-06-23] MEDS: Cefepime 1 GM in Sodium Chloride 0.9% 100 ML IVPB SCH (08:02)
[2021-06-23] MEDS: Dexamethasone 4 mg/ml Vial SLOW IVP SCH (08:03)
[2021-06-23] MEDS: Enoxaparin Sodium 40 MG/0.4 ML SYRINGE SC SCH ×2 (08:04→20:58)
[2021-06-23] MEDS: Benztropine 1 MG TAB PO SCH ×2 (08:04→20:56)
[2021-06-23] MEDS: Furosemide 40 MG/4 ML VIAL SLOW IVP SCH ×2 (08:04→20:59)
[2021-06-23] MEDS: Pancrelipase DR 12,000 1 CAP PO SCH ×3 (08:04→16:03)
[2021-06-23] MEDS: Aspirin Chewable 81 MG TAB PO SCH (08:04)
[2021-06-23] MEDS: risperiDONE 1 MG TAB PO SCH ×2 (08:04→21:04)
[2021-06-23] MEDS: Amlodipine 5 MG TAB PO SCH (08:05)
[2021-06-23] MEDS: Folic Acid 1 MG TAB PO SCH (08:05)
[2021-06-23] MEDS: Lorazepam 1 MG TAB PER TUBE SCH ×3 (08:06→20:59)
[2021-06-23] MEDS: Lisinopril 10 MG TAB PO SCH (08:06)
[2021-06-23] MEDS: Pantoprazole 40 MG GRANULES PACKET PER TUBE SCH (08:10)
[2021-06-23] MEDS: NPH, Human Insulin Isophane 300 UNIT/3 ML VIAL SC SCH ×2 (08:11→21:02)
[2021-06-23] MEDS: Atorvastatin Calcium 40 MG TAB PO SCH (20:56)
[2021-06-23] MEDS: hydrALAZINE 20 MG/ML VIAL SLOW IVP PRN (21:58)
[2021-06-23] MEDS ORDERED: Cefepime 1 GM in Sodium Chloride 0.9% 100 ML IVPB SCH (22:15)
[2021-06-24] MEDS: Cefepime 1 GM in Sodium Chloride 0.9% 100 ML IVPB SCH ×3 (00:22→23:40)
[2021-06-24 03:56] LABS: Bilirubin Negative (Negative); Blood, Urine 3+ (Negative); Clarity Turbid (Clear); Glucose, Urine (Dipstick) 300 mg/dL (Negative); Ketone, Urine Trace mg/dL (Negative); Leukocyte Negative Leu/uL (Negative); Mucous/LPF Rare LPF (<2+); Nitrite Negative (Negative); Protein, Urine (Dipstick) 30 mg/dL (Neg-Trace); RBC/HPF Greater than 50 HPF (0-3); Specific Gravity, Urine 1.017 (1.002-1.036); Squamous Epithelial None Seen HPF (0-3); Urobilinogen Normal mg/dL (Less than 2); WBC/HPF 21-50 HPF (0-3); pH, Urine 7.5 (5.0-9.0)
[2021-06-24 04:12] LABS: Bacteria/HPF None Seen HPF (None Seen)
[2021-06-24 07:42] LABS: #Neutrophils 9.1 thou/uL (1.40-6.50); %Basophils 0.1 % (0.0-1.0); %Eosinophils 0.2 % (0.0-10.0); %Lymphocytes 8.7 % (21.0-51.0); %Monocytes 9.3 % (0.0-10.0); %Neutrophils 81.7 % (42.0-75.0); Hemoglobin 10.7 g/dL (14.0-18.0); Mean Corpuscular HGB CONC 33.7 g/dL (32.0-36.0); Mean Corpuscular Hemoglobin 34.5 pg (27.0-31.0); Mean Platelet Volume 8.5 fL (7.4-10.4); Platelet Count 319 thou/uL (130-400); RBC Distribution Width 14.9 % (11.5-14.5); White Blood Cell (WBC) Count 11.2 thou/uL (4.8-10.8)
[2021-06-24 07:59] LABS: Anion Gap 12 mmol/L (10-20); BUN (Urea Nitrogen) 22 mg/dL (8.4-25.7); Calc. Creatinine Clearance 118 mL/min (70-130); Calcium 8.2 mg/dL (7.8-10.44); Carbon Dioxide 27 mmol/L (22-29); Chloride 93 mmol/L (98-107); Glucose 194 mg/dL (70-105); Potassium 4.2 mmol/L (3.5-5.1); Sodium 128 mmol/L (136-145)
[2021-06-24] MEDS: Benztropine 1 MG TAB PO SCH ×2 (09:15→23:40)
[2021-06-24] MEDS: Dexamethasone 4 mg/ml Vial SLOW IVP SCH (09:36)
[2021-06-24] MEDS: risperiDONE 1 MG TAB PO SCH ×2 (09:37→23:39)
[2021-06-24] MEDS: Furosemide 40 MG/4 ML VIAL SLOW IVP SCH (09:37)
[2021-06-24] MEDS: Pantoprazole 40 MG GRANULES PACKET PER TUBE SCH (09:37)
[2021-06-24] MEDS: Folic Acid 1 MG TAB PO SCH (09:38)
[2021-06-24] MEDS: Amlodipine 5 MG TAB PO SCH (09:38)
[2021-06-24] MEDS: Pancrelipase DR 12,000 1 CAP PO SCH ×3 (09:38→16:37)
[2021-06-24] MEDS: Lorazepam 1 MG TAB PER TUBE SCH ×3 (09:38→23:38)
[2021-06-24] MEDS: Lisinopril 10 MG TAB PO SCH (09:38)
[2021-06-24] MEDS: NPH, Human Insulin Isophane 300 UNIT/3 ML VIAL SC SCH ×2 (09:39→23:40)
[2021-06-24] MEDS: Valproate Sodium 250 mg/5 ml UD Cup PER TUBE SCH (09:55)
[2021-06-24] MEDS: HumaLOG 300 UNITS/3 ML VIAL SC PRN (12:53)
[2021-06-24] MEDS: Atorvastatin Calcium 40 MG TAB PO SCH (23:38)
[2021-06-25 06:16] LABS: #Eosinphils 0.1 thou/uL (0.0-0.7); #Lymphocytes 1.4 thou/uL (1.20-3.40); #Monocytes 0.9 thou/uL (0.11-0.59); #Neutrophils 7.1 thou/uL (1.40-6.50); %Basophils 0.5 % (0.0-1.0); %Eosinophils 0.5 % (0.0-10.0); %Monocytes 9.1 % (0.0-10.0); Hemoglobin 9.5 g/dL (14.0-18.0); Mean Corpuscular HGB CONC 35.2 g/dL (32.0-36.0); Mean Corpuscular Hemoglobin 36.1 pg (27.0-31.0); Mean Platelet Volume 7.9 fL (7.4-10.4); Platelet Count 327 thou/uL (130-400); RBC Distribution Width 14.7 % (11.5-14.5); Red Blood Cell (RBC) Count 2.64 mill/uL (4.70-6.10); White Blood Cell (WBC) Count 9.4 thou/uL (4.8-10.8)
[2021-06-25 06:46] LABS: Anion Gap 12 mmol/L (10-20); BUN (Urea Nitrogen) 25 mg/dL (8.4-25.7); Calc. Creatinine Clearance 119 mL/min (70-130); Calcium 7.9 mg/dL (7.8-10.44); Carbon Dioxide 28 mmol/L (22-29); Chloride 95 mmol/L (98-107); Glucose 161 mg/dL (70-105); Potassium 3.8 mmol/L (3.5-5.1); Sodium 131 mmol/L (136-145)
[2021-06-25] MEDS: Sodium Chloride 0.9% 1,000 ML IV SCH (09:08)
[2021-06-25] MEDS: Dexamethasone 4 mg/ml Vial SLOW IVP SCH (09:09)
[2021-06-25] MEDS: Cefepime 1 GM in Sodium Chloride 0.9% 100 ML IVPB SCH (09:43)
[2021-06-25] MEDS: Pancrelipase DR 12,000 1 CAP PO SCH ×3 (09:48→16:26)
[2021-06-25] MEDS: risperiDONE 1 MG TAB PO SCH ×2 (09:49→21:08)
[2021-06-25] MEDS: Amlodipine 5 MG TAB PO SCH (09:49)
[2021-06-25] MEDS: Lisinopril 10 MG TAB PO SCH (09:50)
[2021-06-25] MEDS: Lorazepam 1 MG TAB PER TUBE SCH ×3 (09:50→21:08)
[2021-06-25] MEDS: NPH, Human Insulin Isophane 300 UNIT/3 ML VIAL SC SCH ×2 (09:50→21:10)
[2021-06-25] MEDS: Folic Acid 1 MG TAB PO SCH (09:50)
[2021-06-25] MEDS: Benztropine 1 MG TAB PO SCH ×2 (09:50→21:10)
[2021-06-25] MEDS: Pantoprazole 40 MG GRANULES PACKET PER TUBE SCH (09:51)
[2021-06-25] MEDS: Valproate Sodium 250 mg/5 ml UD Cup PER TUBE SCH ×2 (09:51→21:12)
[2021-06-25] MEDS: HumaLOG 300 UNITS/3 ML VIAL SC PRN (16:51)
[2021-06-25] MEDS: Atorvastatin Calcium 40 MG TAB PO SCH (21:09)
[2021-06-25] MEDS: Cefdinir 300 MG CAP PO SCH (21:10)
[2021-06-26] MEDS: Sodium Chloride 0.9% 1,000 ML IV SCH ×2 (00:01→11:45)
[2021-06-26 05:56] LABS: #Basophils 0.1 thou/uL (0.0-0.2); #Lymphocytes 1.4 thou/uL (1.20-3.40); #Monocytes 0.6 thou/uL (0.11-0.59); #Neutrophils 5.1 thou/uL (1.40-6.50); %Basophils 0.7 % (0.0-1.0); %Eosinophils 0.4 % (0.0-10.0); %Monocytes 8.4 % (0.0-10.0); %Neutrophils 70.4 % (42.0-75.0); Hemoglobin 10.8 g/dL (14.0-18.0); Mean Corpuscular Hemoglobin 35.5 pg (27.0-31.0); Mean Platelet Volume 8.8 fL (7.4-10.4); Platelet Count 206 thou/uL (130-400); RBC Distribution Width 14.5 % (11.5-14.5); Red Blood Cell (RBC) Count 3.03 mill/uL (4.70-6.10); White Blood Cell (WBC) Count 7.2 thou/uL (4.8-10.8)
[2021-06-26 06:17] LABS: Anion Gap 13 mmol/L (10-20); BUN (Urea Nitrogen) 19 mg/dL (8.4-25.7); Calc. Creatinine Clearance 121 mL/min (70-130); Calcium 8.2 mg/dL (7.8-10.44); Carbon Dioxide 23 mmol/L (22-29); Chloride 99 mmol/L (98-107); Glucose 145 mg/dL (70-105); Potassium 4.7 mmol/L (3.5-5.1); Sodium 130 mmol/L (136-145)
[2021-06-26] MEDS: NPH, Human Insulin Isophane 300 UNIT/3 ML VIAL SC SCH ×3 (07:23→20:29)
[2021-06-26] MEDS: Pantoprazole 40 MG GRANULES PACKET PER TUBE SCH (09:10)
[2021-06-26] MEDS: Pancrelipase DR 12,000 1 CAP PO SCH ×3 (09:10→15:34)
[2021-06-26] MEDS: Folic Acid 1 MG TAB PO SCH (09:11)
[2021-06-26] MEDS: Amlodipine 5 MG TAB PO SCH (09:11)
[2021-06-26] MEDS: Benztropine 1 MG TAB PO SCH (09:11)
[2021-06-26] MEDS: Lisinopril 10 MG TAB PO SCH (09:11)
[2021-06-26] MEDS: Lorazepam 1 MG TAB PER TUBE SCH ×3 (09:11→20:29)
[2021-06-26] MEDS: risperiDONE 1 MG TAB PO SCH ×2 (09:11→20:29)
[2021-06-26] MEDS: Cefdinir 300 MG CAP PO SCH ×2 (09:11→20:29)
[2021-06-26] MEDS: Dexamethasone 4 mg/ml Vial SLOW IVP SCH (09:12)
[2021-06-26] MEDS: Valproate Sodium 250 mg/5 ml UD Cup PER TUBE SCH ×2 (09:12→20:30)
[2021-06-26 10:20] VITALS: BMI 20.1
[2021-06-26] MEDS: HumaLOG 300 UNITS/3 ML VIAL SC PRN (15:44)
[2021-06-26] MEDS: Atorvastatin Calcium 40 MG TAB PO SCH (20:29)
[2021-06-27] MEDS: Sodium Chloride 0.9% 1,000 ML IV SCH (05:03)
[2021-06-27] MEDS: Pantoprazole 40 MG GRANULES PACKET PER TUBE SCH (08:11)
[2021-06-27] MEDS: Benztropine 1 MG TAB PO SCH (08:11)
[2021-06-27 08:12] LABS: #Lymphocytes 1.5 thou/uL (1.20-3.40); #Monocytes 0.8 thou/uL (0.11-0.59); #Neutrophils 6.6 thou/uL (1.40-6.50); %Basophils 0.3 % (0.0-1.0); %Eosinophils 0.3 % (0.0-10.0); %Lymphocytes 16.8 % (21.0-51.0); %Monocytes 8.4 % (0.0-10.0); %Neutrophils 74.2 % (42.0-75.0); Hemoglobin 9.8 g/dL (14.0-18.0); Mean Corpuscular HGB CONC 34.7 g/dL (32.0-36.0); Mean Corpuscular Hemoglobin 35.1 pg (27.0-31.0); Mean Platelet Volume 7.4 fL (7.4-10.4); Platelet Count 299 thou/uL (130-400); Red Blood Cell (RBC) Count 2.78 mill/uL (4.70-6.10); White Blood Cell (WBC) Count 8.8 thou/uL (4.8-10.8)
[2021-06-27] MEDS: Dexamethasone 4 mg/ml Vial SLOW IVP SCH (08:12)
[2021-06-27] MEDS: Amlodipine 5 MG TAB PO SCH (08:12)
[2021-06-27] MEDS: Valproate Sodium 250 mg/5 ml UD Cup PER TUBE SCH ×2 (08:12→20:49)
[2021-06-27] MEDS: Folic Acid 1 MG TAB PO SCH (08:12)
[2021-06-27] MEDS: Lorazepam 1 MG TAB PER TUBE SCH ×3 (08:12→20:48)
[2021-06-27] MEDS: Cefdinir 300 MG CAP PO SCH ×2 (08:12→20:46)
[2021-06-27] MEDS: Lisinopril 10 MG TAB PO SCH (08:12)
[2021-06-27] MEDS: Pancrelipase DR 12,000 1 CAP PO SCH ×3 (08:12→16:14)
[2021-06-27] MEDS: NPH, Human Insulin Isophane 300 UNIT/3 ML VIAL SC SCH ×2 (08:13→20:49)
[2021-06-27 08:31] LABS: Anion Gap 10 mmol/L (10-20); BUN (Urea Nitrogen) 11 mg/dL (8.4-25.7); Calc. Creatinine Clearance 141 mL/min (70-130); Carbon Dioxide 28 mmol/L (22-29); Chloride 99 mmol/L (98-107); Glucose 76 mg/dL (70-105); Potassium 3.5 mmol/L (3.5-5.1); Sodium 133 mmol/L (136-145)
[2021-06-27] MEDS: risperiDONE 1 MG TAB PO SCH (20:48)
[2021-06-27] MEDS: Atorvastatin Calcium 40 MG TAB PO SCH (20:48)
[2021-06-28] MEDS: Dextrose 50% Abboject 50 ML SYRINGE SLOW IVP PRN (04:52)
[2021-06-28 09:40] LABS: #Lymphocytes 1.3 thou/uL (1.20-3.40); #Monocytes 0.7 thou/uL (0.11-0.59); #Neutrophils 4.4 thou/uL (1.40-6.50); %Basophils 0.5 % (0.0-1.0); %Eosinophils 0.7 % (0.0-10.0); %Lymphocytes 20.5 % (21.0-51.0); %Monocytes 10.5 % (0.0-10.0); %Neutrophils 67.8 % (42.0-75.0); Hemoglobin 10.7 g/dL (14.0-18.0); Mean Corpuscular HGB CONC 33.3 g/dL (32.0-36.0); Mean Corpuscular Hemoglobin 33.6 pg (27.0-31.0); Mean Platelet Volume 7.3 fL (7.4-10.4); Platelet Count 266 thou/uL (130-400); RBC Distribution Width 14.2 % (11.5-14.5); Red Blood Cell (RBC) Count 3.19 mill/uL (4.70-6.10); White Blood Cell (WBC) Count 6.5 thou/uL (4.8-10.8)
[2021-06-28] MEDS: Valproate Sodium 250 mg/5 ml UD Cup PER TUBE SCH ×2 (09:49→20:08)
[2021-06-28] MEDS: Pancrelipase DR 12,000 1 CAP PO SCH ×3 (09:50→17:42)
[2021-06-28] MEDS: Cefdinir 300 MG CAP PO SCH ×2 (09:50→20:06)
[2021-06-28 09:51] LABS: Anion Gap 10 mmol/L (10-20); BUN (Urea Nitrogen) 11 mg/dL (8.4-25.7); Calc. Creatinine Clearance 115 mL/min (70-130); Calcium 7.9 mg/dL (7.8-10.44); Carbon Dioxide 27 mmol/L (22-29); Chloride 96 mmol/L (98-107); Glucose 234 mg/dL (70-105); Sodium 129 mmol/L (136-145)
[2021-06-28] MEDS: Amlodipine 5 MG TAB PO SCH (09:51)
[2021-06-28] MEDS: Lisinopril 10 MG TAB PO SCH (09:51)
[2021-06-28] MEDS: Dexamethasone 4 mg/ml Vial SLOW IVP SCH (09:51)
[2021-06-28] MEDS: Lorazepam 1 MG TAB PER TUBE SCH ×3 (09:51→20:06)
[2021-06-28] MEDS: Folic Acid 1 MG TAB PO SCH (09:51)
[2021-06-28] MEDS: Pantoprazole 40 MG GRANULES PACKET PER TUBE SCH (10:01)
[2021-06-28] MEDS: NPH, Human Insulin Isophane 300 UNIT/3 ML VIAL SC SCH ×2 (10:02→20:06)
[2021-06-28] MEDS: HumaLOG 300 UNITS/3 ML VIAL SC PRN (11:55)
[2021-06-28] MEDS: Benztropine 1 MG TAB PO SCH (15:39)
[2021-06-28] MEDS: Atorvastatin Calcium 40 MG TAB PO SCH (20:06)
[2021-06-28] MEDS: risperiDONE 1 MG TAB PO SCH (20:06)
[2021-06-29 07:29] LABS: #Basophils 0.1 thou/uL (0.0-0.2); #Lymphocytes 1.8 thou/uL (1.20-3.40); #Monocytes 0.7 thou/uL (0.11-0.59); #Neutrophils 4.5 thou/uL (1.40-6.50); %Basophils 0.9 % (0.0-1.0); %Eosinophils 0.6 % (0.0-10.0); %Lymphocytes 25.2 % (21.0-51.0); %Monocytes 9.5 % (0.0-10.0); %Neutrophils 63.8 % (42.0-75.0); Hemoglobin 10.7 g/dL (14.0-18.0); Mean Corpuscular HGB CONC 33.1 g/dL (32.0-36.0); Mean Corpuscular Hemoglobin 33.5 pg (27.0-31.0); Mean Platelet Volume 7.5 fL (7.4-10.4); Platelet Count 243 thou/uL (130-400); RBC Distribution Width 14.3 % (11.5-14.5)
[2021-06-29 07:54] LABS: Anion Gap 12 mmol/L (10-20); BUN (Urea Nitrogen) 17 mg/dL (8.4-25.7); Calc. Creatinine Clearance 117 mL/min (70-130); Calcium 8.1 mg/dL (7.8-10.44); Carbon Dioxide 26 mmol/L (22-29); Chloride 96 mmol/L (98-107); Glucose 194 mg/dL (70-105); Potassium 3.9 mmol/L (3.5-5.1); Sodium 130 mmol/L (136-145)
[2021-06-29] MEDS: Dexamethasone 4 mg/ml Vial SLOW IVP SCH (08:40)
[2021-06-29] MEDS: Valproate Sodium 250 mg/5 ml UD Cup PER TUBE SCH ×2 (08:40→19:37)
[2021-06-29] MEDS: Pancrelipase DR 12,000 1 CAP PO SCH ×3 (08:42→16:49)
[2021-06-29] MEDS: metFORMIN 500 MG TAB PO SCH ×2 (08:43→16:50)
[2021-06-29] MEDS: Folic Acid 1 MG TAB PO SCH (08:43)
[2021-06-29] MEDS: Amlodipine 5 MG TAB PO SCH (08:43)
[2021-06-29] MEDS: Lorazepam 1 MG TAB PER TUBE SCH ×3 (08:43→19:37)
[2021-06-29] MEDS: Cefdinir 300 MG CAP PO SCH ×2 (08:44→19:37)
[2021-06-29] MEDS: Lisinopril 10 MG TAB PO SCH (08:44)
[2021-06-29] MEDS: Benztropine 1 MG TAB PO SCH (08:45)
[2021-06-29] MEDS: Pantoprazole 40 MG GRANULES PACKET PER TUBE SCH (08:45)
[2021-06-29] MEDS: risperiDONE 1 MG TAB PO SCH (19:37)
[2021-06-29] MEDS: Atorvastatin Calcium 40 MG TAB PO SCH (19:37)
[2021-06-30 08:09] LABS: Anion Gap 13 mmol/L (10-20); BUN (Urea Nitrogen) 20 mg/dL (8.4-25.7); Calc. Creatinine Clearance 96 mL/min (70-130); Calcium 8.7 mg/dL (7.8-10.44); Carbon Dioxide 26 mmol/L (22-29); Chloride 97 mmol/L (98-107); Glucose 323 mg/dL (70-105); Potassium 4.2 mmol/L (3.5-5.1); Sodium 132 mmol/L (136-145)
[2021-06-30] MEDS: Cefdinir 300 MG CAP PO SCH (08:15)
[2021-06-30] MEDS: Lisinopril 10 MG TAB PO SCH (08:15)
[2021-06-30] MEDS: Folic Acid 1 MG TAB PO SCH (08:15)
[2021-06-30] MEDS: metFORMIN 500 MG TAB PO SCH ×2 (08:15→16:08)
[2021-06-30] MEDS: Valproate Sodium 250 mg/5 ml UD Cup PER TUBE SCH ×2 (08:15→20:30)
[2021-06-30] MEDS: Pantoprazole 40 MG GRANULES PACKET PER TUBE SCH (08:15)
[2021-06-30] MEDS: Lorazepam 1 MG TAB PER TUBE SCH ×3 (08:15→20:29)
[2021-06-30] MEDS: Pancrelipase DR 12,000 1 CAP PO SCH ×3 (08:15→16:08)
[2021-06-30] MEDS: Amlodipine 5 MG TAB PO SCH (08:15)
[2021-06-30] MEDS: Benztropine 1 MG TAB PO SCH (09:35)
[2021-06-30] MEDS: Atorvastatin Calcium 40 MG TAB PO SCH (20:29)
[2021-06-30] MEDS: risperiDONE 1 MG TAB PO SCH (20:29)
[2021-07-01] MEDS: Valproate Sodium 250 mg/5 ml UD Cup PER TUBE SCH ×2 (07:59→19:56)
[2021-07-01] MEDS: Amlodipine 5 MG TAB PO SCH (07:59)
[2021-07-01] MEDS: Lorazepam 1 MG TAB PER TUBE SCH ×3 (08:00→19:56)
[2021-07-01] MEDS: Lisinopril 10 MG TAB PO SCH (08:00)
[2021-07-01] MEDS: metFORMIN 500 MG TAB PO SCH ×2 (08:00→16:54)
[2021-07-01] MEDS: Pancrelipase DR 12,000 1 CAP PO SCH ×3 (08:00→16:54)
[2021-07-01] MEDS: Pantoprazole 40 MG GRANULES PACKET PER TUBE SCH (08:00)
[2021-07-01] MEDS: Folic Acid 1 MG TAB PO SCH (08:00)
[2021-07-01] MEDS: Multivitamin W/ Minerals 1 TAB PO SCH (08:00)
[2021-07-01] MEDS: Benztropine 1 MG TAB PO SCH (08:00)
[2021-07-01 10:21] LABS: #Lymphocytes 0.7 thou/uL (1.20-3.40); #Monocytes 0.5 thou/uL (0.11-0.59); #Neutrophils 5.9 thou/uL (1.40-6.50); %Basophils 0.2 % (0.0-1.0); %Eosinophils 0.3 % (0.0-10.0); %Lymphocytes 9.5 % (21.0-51.0); Hemoglobin 12.1 g/dL (14.0-18.0); Mean Corpuscular HGB CONC 33.1 g/dL (32.0-36.0); Mean Corpuscular Hemoglobin 33.9 pg (27.0-31.0); Platelet Count 175 thou/uL (130-400); RBC Distribution Width 14.1 % (11.5-14.5); Red Blood Cell (RBC) Count 3.56 mill/uL (4.70-6.10); White Blood Cell (WBC) Count 7.1 thou/uL (4.8-10.8)
[2021-07-01 10:36] LABS: Anion Gap 17 mmol/L (10-20); BUN (Urea Nitrogen) 24 mg/dL (8.4-25.7); Calc. Creatinine Clearance 93 mL/min (70-130); Calcium 8.5 mg/dL (7.8-10.44); Carbon Dioxide 22 mmol/L (22-29); Chloride 97 mmol/L (98-107); Glucose 487 mg/dL (70-105); Potassium 3.9 mmol/L (3.5-5.1); Sodium 132 mmol/L (136-145)
[2021-07-01] MEDS: Atorvastatin Calcium 40 MG TAB PO SCH (19:56)
[2021-07-01] MEDS: risperiDONE 1 MG TAB PO SCH (19:56)
[2021-07-02] MEDS: Valproate Sodium 250 mg/5 ml UD Cup PER TUBE SCH ×2 (08:58→21:18)
[2021-07-02] MEDS: Pancrelipase DR 12,000 1 CAP PO SCH ×3 (08:58→17:11)
[2021-07-02] MEDS: Lorazepam 1 MG TAB PER TUBE SCH ×3 (08:58→21:18)
[2021-07-02] MEDS: Benztropine 1 MG TAB PO SCH (09:00)
[2021-07-02] MEDS: Amlodipine 5 MG TAB PO SCH (09:00)
[2021-07-02] MEDS: Multivitamin W/ Minerals 1 TAB PO SCH (09:00)
[2021-07-02] MEDS: metFORMIN 500 MG TAB PO SCH ×2 (09:04→17:12)
[2021-07-02] MEDS: Folic Acid 1 MG TAB PO SCH (09:04)
[2021-07-02] MEDS: Lisinopril 10 MG TAB PO SCH (09:05)
[2021-07-02] MEDS: Lansoprazole 3 MG/ML ORAL SUSPENSION PER TUBE SCH (09:55)
[2021-07-02] MEDS: HumaLOG 300 UNITS/3 ML VIAL SC PRN ×3 (12:47→21:19)
[2021-07-02] MEDS ORDERED: metFORMIN 500 MG TAB PO SCH (15:23)
[2021-07-02] MEDS: Atorvastatin Calcium 40 MG TAB PO SCH (21:18)
[2021-07-02] MEDS: risperiDONE 1 MG TAB PO SCH (21:18)
[2021-07-03] MEDS: HumaLOG 300 UNITS/3 ML VIAL SC PRN ×4 (06:16→21:04)
[2021-07-03] MEDS: Pancrelipase DR 12,000 1 CAP PO SCH ×3 (08:35→17:21)
[2021-07-03] MEDS: Folic Acid 1 MG TAB PO SCH (08:36)
[2021-07-03] MEDS: Benztropine 1 MG TAB PO SCH (08:36)
[2021-07-03] MEDS: Valproate Sodium 250 mg/5 ml UD Cup PER TUBE SCH ×2 (08:36→21:02)
[2021-07-03] MEDS: Multivitamin W/ Minerals 1 TAB PO SCH (08:36)
[2021-07-03] MEDS: Lisinopril 10 MG TAB PO SCH (08:36)
[2021-07-03] MEDS: metFORMIN 500 MG TAB PO SCH ×2 (08:36→17:21)
[2021-07-03] MEDS: Lorazepam 1 MG TAB PER TUBE SCH ×3 (08:37→21:02)
[2021-07-03] MEDS: Amlodipine 5 MG TAB PO SCH (08:37)
[2021-07-03] MEDS: Lansoprazole 3 MG/ML ORAL SUSPENSION PER TUBE SCH (09:35)
[2021-07-03] MEDS: risperiDONE 1 MG TAB PO SCH (21:02)
[2021-07-03] MEDS: Atorvastatin Calcium 40 MG TAB PO SCH (21:02)
[2021-07-04] MEDS: HumaLOG 300 UNITS/3 ML VIAL SC PRN ×2 (05:26→12:31)
[2021-07-04] MEDS: Valproate Sodium 250 mg/5 ml UD Cup PER TUBE SCH (09:32)
[2021-07-04] MEDS: Pancrelipase DR 12,000 1 CAP PO SCH ×2 (09:32→12:00)
[2021-07-04] MEDS: metFORMIN 500 MG TAB PO SCH (09:33)
[2021-07-04] MEDS: Lorazepam 1 MG TAB PER TUBE SCH (09:33)
[2021-07-04] MEDS: Amlodipine 5 MG TAB PO SCH (09:33)
[2021-07-04] MEDS: Lisinopril 10 MG TAB PO SCH (09:33)
[2021-07-04] MEDS: Multivitamin W/ Minerals 1 TAB PO SCH (09:33)
[2021-07-04] MEDS: Benztropine 1 MG TAB PO SCH (09:33)
[2021-07-04] MEDS: Folic Acid 1 MG TAB PO SCH (09:33)
[2021-07-04] MEDS: Lansoprazole 3 MG/ML ORAL SUSPENSION PER TUBE SCH (12:33)
[2021-07-04 13:49] VITALS: TEMP 97.6
[2021-07-04 14:37] VITALS: BP 119/90
== END 2021-07-04 14:35 | DRG 870 ==
LOC: ERS 14:00 → CCU 18:21 → T4-A 06-23 23:46
PROVIDERS: ADMIT Internal Medicine; ATTEND Hospitalist
PROC: 5A1955Z Respiratory Ventilation, Greater than 96 Consecutive Hours (ICD-10-PCS; principal; 2021-06-07)
PROC: 3E033XZ Introduction of Vasopressor into Peripheral Vein, Percutaneous Approach (ICD-10-PCS; 2021-06-07)
PROC: 5A0935A Assistance with Respiratory Ventilation, Less than 24 Consecutive Hours, High Flow/Velocity Cannula (ICD-10-PCS; 2021-06-07)
PROC: 0BH17EZ Insertion of Endotracheal Airway into Trachea, Via Natural or Artificial Opening (ICD-10-PCS; 2021-06-07)
PROC: 0D9670Z Drainage of Stomach with Drainage Device, Via Natural or Artificial Opening (ICD-10-PCS; 2021-06-07)
PROC: 02HV33Z Insertion of Infusion Device into Superior Vena Cava, Percutaneous Approach (ICD-10-PCS; 2021-06-07)
PROC: B548ZZA Ultrasonography of Superior Vena Cava, Guidance (ICD-10-PCS; 2021-06-07)
PROC: 8E0ZXY6 Isolation (ICD-10-PCS; 2021-06-07)
DX: A41.02 Sepsis due to Methicillin resistant Staphylococcus aureus (principal); U07.1 COVID-19; J12.82 Pneumonia due to coronavirus disease 2019; J96.01 Acute respiratory failure with hypoxia; K72.00 Acute and subacute hepatic failure without coma; R65.21 Severe sepsis with septic shock; E43 Unspecified severe protein-calorie malnutrition; K86.1 Other chronic pancreatitis; E72.20 Disorder of urea cycle metabolism, unspecified; I82.891 Chronic embolism and thrombosis of other specified veins; E87.1 Hypo-osmolality and hyponatremia; Z66 Do not resuscitate; F31.9 Bipolar disorder, unspecified; E11.9 Type 2 diabetes mellitus without complications; I10 Essential (primary) hypertension; F63.81 Intermittent explosive disorder; F71 Moderate intellectual disabilities; F41.9 Anxiety disorder, unspecified; D69.6 Thrombocytopenia, unspecified; K86.89 Other specified diseases of pancreas; G40.909 Epilepsy, unspecified, not intractable, without status epilepticus; R63.1 Polydipsia; R29.810 Facial weakness; H51.8 Other specified disorders of binocular movement; Z78.1 Physical restraint status; Z79.899 Other long term (current) drug therapy; Z79.4 Long term (current) use of insulin; Z79.84 Long term (current) use of oral hypoglycemic drugs; Z68.20 Body mass index [BMI] 20.0-20.9, adult
CPT/HCPCS: 0240U; 31500; 36415; 36416; 36556; 36600; 70450; 71045; 71275; 74177; 74230; 76705; 80048; 80053; 80076; 80202; 80307; 81001; 82010; 82140; 82550; 82570; 82607; 82746; 82805; 83540; 83550; 83605; 83690; 83880; 83930; 83935; 84145; 84146; 84300; 84443; 84450; 84460; 84484; 84550; 85025; 85379; 85610; 85730; 86850; 86900; 86901; 87040; 87077; 87081; 87149; 87186; 93005; 94002; 94003; 94640; 94760; 96365; 96366; 96367; 96375; C9113; J0360; J0692; J1100; J1630; J1650; J1815; J1940; J2060; J2270; J2704; J3010; J3370; J3490; J7030; J7050; J7608; J7620; Q9966

== ENCOUNTER 2021-12-31 09:35 | Outpatient (CLI) | payer OTHER | END 2021-12-31 09:36 | disposition home or self-care (01) | LOC: ULT 09:35 | PROVIDERS: ATTEND Internal Medicine Nephrology | DX: I12.9 Hypertensive chronic kidney disease with stage 1 through stage 4 chronic kidney disease, or unspecified chronic kidney disease (principal); N18.30 Chronic kidney disease, stage 3 unspecified | CPT/HCPCS: 76770; 93975 ==

== ENCOUNTER 2024-05-14 06:01 | Inpatient (IN) | payer MEDICARE, MEDICAID ==
[2024-05-14 07:01] LABS: #Basophils Less than 0.03 10x3/uL (0.0-0.2); #Eosinophils Less than 0.03 10x3/uL (0.0-0.7); %Basophils 0.2 % (0.0-1.0); %Eosinophils 0.4 % (0.0-10.0); %Lymphocytes 37.7 % (21.0-51.0); %Neutrophils 47.1 % (42.0-75.0); Hematocrit 33.9 % (42.0-52.0); Mean Corpuscular HGB CONC 35.4 g/dL (32.0-36.0); Mean Corpuscular Hemoglobin 32.8 pg (27.0-31.0); Mean Corpuscular Volume 92.6 fL (78.0-98.0); Mean Platelet Volume 11.1 fL (7.4-10.4); Platelet Count 140 10x3/uL (130-400); RBC Distribution Width 13.2 % (11.5-14.5); Red Blood Cell (RBC) Count 3.66 mill/uL (4.70-6.10)
[2024-05-14 07:07] LABS: INR-International Normal Ratio 0.9; Prothrombin Time 12.2 sec (12.0-14.7)
[2024-05-14 07:08] LABS: PTT 27.4 sec (22.9-36.1)
[2024-05-14 07:09] LABS: ALT (SGPT) 16 U/L (8-55); AST (SGOT) 25 U/L (5-34); Albumin 3.3 g/dL (3.5-5.0); Alkaline Phosphatase 91 U/L (40-110); Anion Gap 16 mmol/L (10-20); BUN (Urea Nitrogen) 17 mg/dL (8.4-25.7); Bilirubin, Total 0.4 mg/dL (0.2-1.2); Calc. Creatinine Clearance 0 mL/min (70-130); Calcium 8.6 mg/dL (7.8-10.44); Carbon Dioxide 22 mmol/L (22-29); Chloride 95 mmol/L (98-107); Estimated GFR 72; Globulin 2.8 g/dL (2.4-3.5); Glucose 197 mg/dL (70-105); Potassium 4.8 mmol/L (3.5-5.1); Protein, Total 6.1 g/dL (6.0-8.3); Sodium 128 mmol/L (136-145)
[2024-05-14] MEDS ORDERED: Morphine 4 MG/ML VIAL ONE (07:25)
[2024-05-14] MEDS ORDERED: Dextrose 50% Abboject 50 ML SYRINGE SLOW IVP PRN (07:57)
[2024-05-14] MEDS ORDERED: Ondansetron ODT 4 MG TAB PO PRN (07:57)
[2024-05-14] MEDS ORDERED: Glucagon 1 MG/ML KIT IM PRN (07:57)
[2024-05-14] MEDS ORDERED: Ondansetron PF 4 MG/2 ML Vial IVP PRN (07:57)
[2024-05-14] MEDS ORDERED: Dextrose 5% in Water 1,000 ML IV PRN (07:57)
[2024-05-14] MEDS ORDERED: hydrALAZINE 20 MG/ML VIAL SLOW IVP PRN (07:57)
[2024-05-14] MEDS ORDERED: Lidocaine 2% PF 5 ML VIAL ONE (11:28)
[2024-05-14] MEDS ORDERED: PROPOFOL 20 ML ONE (11:29)
[2024-05-14] MEDS ORDERED: fentaNYL PF 100 MCG/2 ML SYRINGE ONE (11:29)
[2024-05-14] MEDS ORDERED: CEFAZOLIN 2 GM VIAL ONE (11:41)
[2024-05-14] MEDS ORDERED: Rocuronium Bromide 10 MG/ML (10ML VIAL) ONE (12:42)
[2024-05-14] MEDS ORDERED: Dexamethasone 4 mg/ml Vial ONE (12:42)
[2024-05-14] MEDS ORDERED: Ondansetron PF 4 MG/2 ML Vial ONE (12:42)
[2024-05-14] MEDS ORDERED: SUGAMMADEX SODIUM 200 MG/2 ML VIAL ONE (12:42)
[2024-05-14] MEDS ORDERED: Bupivacaine PF 0.5% 30 ML VIAL ONE (12:50)
[2024-05-14] MEDS ORDERED: EPINEPHrine 1 MG/ML VIAL ONE (12:50)
[2024-05-14] MEDS ORDERED: Morphine 4 MG/ML VIAL SLOW IVP PRN (13:18)
[2024-05-14] MEDS ORDERED: Communication Order-Pharmacy FS SCH (13:30)
[2024-05-14] MEDS ORDERED: fentaNYL 50 mcg/mL 1 mL Vial ONE (13:56)
[2024-05-14 14:13] VITALS: BMI 24.9
[2024-05-14] MEDS: TETANUS, DIPHTHERIA TOX,ADULT (TDVAX) 0.5 ML VIAL IM ONE (14:17)
[2024-05-14] MEDS: CEFAZOLIN 2 GM in Sodium Chloride 0.9% 100 ML IVPB SCH (14:17)
[2024-05-14] MEDS: Insulin Lispro 100 UNIT/ML 10 ML VIAL SQ SCH (18:07)
[2024-05-14] MEDS: Artificial Tear Ophth Sol 15 ML BOT EA EYE SCH (18:07)
[2024-05-14] MEDS: Pancrelipase DR 12,000 1 CAP PO SCH (18:07)
[2024-05-14] MEDS: metFORMIN 500 MG TAB PO SCH (18:07)
[2024-05-14] MEDS: hydrALAZINE 25 MG TAB PO SCH (21:12)
[2024-05-14] MEDS: Benztropine 1 MG TAB PO SCH (21:12)
[2024-05-14] MEDS: Temazepam 15 MG CAP PO SCH (21:13)
[2024-05-14] MEDS: Mirtazapine 15 MG TAB PO SCH (21:13)
[2024-05-14] MEDS: Lorazepam 1 MG TAB PO SCH (21:14)
[2024-05-14] MEDS: OLANZapine 5 MG TAB PO SCH (21:14)
[2024-05-14] MEDS: Divalproex Sodium 500 MG ER.TAB PO SCH (21:19)
[2024-05-15] MEDS: traMADol HCl 50 MG TAB PO PRN (00:21)
[2024-05-15] MEDS: Morphine 2 MG/ML VIAL SLOW IVP PRN (03:14)
[2024-05-15] MEDS: Levothyroxine Sodium 125 MCG TAB PO SCH (05:32)
[2024-05-15 08:02] LABS: Hematocrit 22.5 % (42.0-52.0); Mean Corpuscular HGB CONC 35.6 g/dL (32.0-36.0); Mean Corpuscular Hemoglobin 33.2 pg (27.0-31.0); Mean Corpuscular Volume 93.4 fL (78.0-98.0); Mean Platelet Volume 11.4 fL (7.4-10.4); Platelet Count 125 10x3/uL (130-400); RBC Distribution Width 13.6 % (11.5-14.5); Red Blood Cell (RBC) Count 2.41 mill/uL (4.70-6.10)
[2024-05-15 08:06] LABS: Anion Gap 17 mmol/L (10-20); BUN (Urea Nitrogen) 35 mg/dL (8.4-25.7); Calc. Creatinine Clearance 50 mL/min (70-130); Calcium 7.7 mg/dL (7.8-10.44); Carbon Dioxide 20 mmol/L (22-29); Chloride 91 mmol/L (98-107); Estimated GFR 46; Glucose 319 mg/dL (70-105); Potassium 5.7 mmol/L (3.5-5.1); Sodium 122 mmol/L (136-145)
[2024-05-15 08:35] LABS: Anisocytosis MARKED = >30 cells HPF (0-5); Band 3 % (5-11); Lymphocytes 9 % (21-51); Macrocytosis SLIGHT = 6-15 cells HPF (0-5); Metamyelocyte 2 % (0-0); Microcytosis MARKED = >30 cells HPF (0-5); Monocytes 20 % (0-10); Neutrophil 66 % (42-75); Platelet Adequacy Comment Platelets Decreased; Poikilocytosis MARKED = >30 cells HPF (0-5); Polychromasia SLIGHT = 2-3 cells HPF (0-2)
[2024-05-15] MEDS: Acetaminophen 325 MG TAB PO PRN (09:06)
[2024-05-15] MEDS: Sertraline 100 MG TAB PO SCH (09:10)
[2024-05-15] MEDS: Insulin Glargine 30 UNITS/0.3 ML VIAL SC SCH (09:11)
[2024-05-15] MEDS: Methocarbamol 500 MG TAB PO PRN (11:41)
[2024-05-15] MEDS ORDERED: Dextrose 50% Abboject 50 ML SYRINGE SLOW IVP PRN (13:13)
[2024-05-15] MEDS ORDERED: Glucagon 1 MG/ML KIT IM PRN (13:13)
[2024-05-15] MEDS ORDERED: Dextrose 5% in Water 1,000 ML IV PRN (13:13)
[2024-05-15] MEDS ORDERED: Dextrose 5% in Water 1,000 ML IV SCH (13:15)
[2024-05-15] MEDS: Sodium Chloride 0.9% 500 ML IV SCH (14:08)
[2024-05-15] MEDS: Insulin Lispro 100 UNIT/ML 10 ML VIAL SC PRN (16:31)
[2024-05-15 20:08] LABS: Anion Gap 18 mmol/L (10-20); BUN (Urea Nitrogen) 30 mg/dL (8.4-25.7); Calc. Creatinine Clearance 62 mL/min (70-130); Carbon Dioxide 20 mmol/L (22-29); Chloride 90 mmol/L (98-107); Estimated GFR 60; Glucose 298 mg/dL (70-105); Sodium 123 mmol/L (136-145)
[2024-05-16] MEDS: Insulin Glargine 30 UNITS/0.3 ML VIAL SC SCH (08:19)
[2024-05-16] MEDS: dilTIAZem CD 240 MG CAP PO SCH (08:20)
[2024-05-16 10:05] LABS: #Basophils Less than 0.03 10x3/uL (0.0-0.2); #Eosinophils Less than 0.03 10x3/uL (0.0-0.7); %Basophils 0.1 % (0.0-1.0); %Lymphocytes 7.3 % (21.0-51.0); %Neutrophils 73.5 % (42.0-75.0); Hematocrit 18.9 % (42.0-52.0); Hemoglobin 6.7 g/dL (14.0-18.0); Mean Corpuscular HGB CONC 35.4 g/dL (32.0-36.0); Mean Corpuscular Hemoglobin 33.3 pg (27.0-31.0); Mean Platelet Volume 10.8 fL (7.4-10.4); Platelet Count 121 10x3/uL (130-400); RBC Distribution Width 13.5 % (11.5-14.5); Red Blood Cell (RBC) Count 2.01 mill/uL (4.70-6.10)
[2024-05-16 10:34] LABS: ALT (SGPT) 7 U/L (8-55); AST (SGOT) 28 U/L (5-34); Albumin 2.6 g/dL (3.5-5.0); Alkaline Phosphatase 68 U/L (40-110); Anion Gap 15 mmol/L (10-20); BUN (Urea Nitrogen) 29 mg/dL (8.4-25.7); Bilirubin, Total 0.3 mg/dL (0.2-1.2); Calc. Creatinine Clearance 73 mL/min (70-130); Calcium 7.9 mg/dL (7.8-10.44); Carbon Dioxide 21 mmol/L (22-29); Chloride 90 mmol/L (98-107); Estimated GFR 73; Globulin 2.5 g/dL (2.4-3.5); Glucose 363 mg/dL (70-105); Potassium 5.1 mmol/L (3.5-5.1); Protein, Total 5.1 g/dL (6.0-8.3); Sodium 121 mmol/L (136-145)
[2024-05-16] MEDS: Insulin Lispro 100 UNIT/ML 10 ML VIAL SC PRN (12:23)
[2024-05-16 19:43] LABS: Hematocrit 24.8 % (42.0-52.0); Hemoglobin 8.7 g/dL (14.0-18.0)
[2024-05-16 20:00] LABS: Anion Gap 18 mmol/L (10-20); BUN (Urea Nitrogen) 25 mg/dL (8.4-25.7); Calc. Creatinine Clearance 98 mL/min (70-130); Calcium 8.3 mg/dL (7.8-10.44); Carbon Dioxide 23 mmol/L (22-29); Chloride 91 mmol/L (98-107); Estimated GFR 102; Glucose 91 mg/dL (70-105); Potassium 4.5 mmol/L (3.5-5.1); Sodium 127 mmol/L (136-145)
[2024-05-17 08:41] LABS: ALT (SGPT) 7 U/L (8-55); AST (SGOT) 26 U/L (5-34); Albumin 2.3 g/dL (3.5-5.0); Alkaline Phosphatase 63 U/L (40-110); Anion Gap 14 mmol/L (10-20); BUN (Urea Nitrogen) 21 mg/dL (8.4-25.7); Bilirubin, Total 0.3 mg/dL (0.2-1.2); Calc. Creatinine Clearance 89 mL/min (70-130); Calcium 7.8 mg/dL (7.8-10.44); Carbon Dioxide 25 mmol/L (22-29); Chloride 88 mmol/L (98-107); Estimated GFR 92; Globulin 2.6 g/dL (2.4-3.5); Glucose 258 mg/dL (70-105); Potassium 4.7 mmol/L (3.5-5.1); Protein, Total 4.9 g/dL (6.0-8.3); Sodium 122 mmol/L (136-145)
[2024-05-17 08:59] LABS: #Basophils Less than 0.03 10x3/uL (0.0-0.2); #Eosinophils Less than 0.03 10x3/uL (0.0-0.7); %Basophils 0.1 % (0.0-1.0); %Eosinophils 0.1 % (0.0-10.0); %Lymphocytes 8.7 % (21.0-51.0); %Monocytes 16.4 % (0.0-10.0); %Neutrophils 73.7 % (42.0-75.0); Hematocrit 20.9 % (42.0-52.0); Hemoglobin 7.4 g/dL (14.0-18.0); Mean Corpuscular HGB CONC 35.4 g/dL (32.0-36.0); Mean Corpuscular Hemoglobin 32.5 pg (27.0-31.0); Mean Corpuscular Volume 91.7 fL (78.0-98.0); Platelet Count 121 10x3/uL (130-400); RBC Distribution Width 15.5 % (11.5-14.5); Red Blood Cell (RBC) Count 2.28 mill/uL (4.70-6.10)
[2024-05-17] MEDS: Insulin Glargine 30 UNITS/0.3 ML VIAL SC SCH (15:05)
[2024-05-17] MEDS: Enoxaparin 40 MG (0.4 mL) SYRINGE SC SCH (20:25)
[2024-05-18 07:06] LABS: Anion Gap 15 mmol/L (10-20); BUN (Urea Nitrogen) 18 mg/dL (8.4-25.7); Calc. Creatinine Clearance 101 mL/min (70-130); Calcium 7.9 mg/dL (7.8-10.44); Carbon Dioxide 26 mmol/L (22-29); Chloride 88 mmol/L (98-107); Estimated GFR 104; Glucose 171 mg/dL (70-105); Potassium 3.8 mmol/L (3.5-5.1); Sodium 125 mmol/L (136-145)
[2024-05-18 07:07] LABS: Hematocrit 21.7 % (42.0-52.0); Mean Corpuscular HGB CONC 36.9 g/dL (32.0-36.0); Mean Corpuscular Hemoglobin 32.5 pg (27.0-31.0); Mean Corpuscular Volume 88.2 fL (78.0-98.0); Mean Platelet Volume 11.2 fL (7.4-10.4); Platelet Count 146 10x3/uL (130-400); RBC Distribution Width 14.9 % (11.5-14.5); Red Blood Cell (RBC) Count 2.46 mill/uL (4.70-6.10)
[2024-05-18] MEDS: Insulin Glargine 30 UNITS/0.3 ML VIAL SC SCH (08:00)
[2024-05-18 08:48] VITALS: TEMP 97.2
[2024-05-18] MEDS ORDERED: Insulin Glargine 30 UNITS/0.3 ML VIAL SC SCH (09:00)
[2024-05-18 13:00] LABS: Anisocytosis SLIGHT = 6-15 cells HPF (0-5); Band 2 % (5-11); Burr Cells SLIGHT = 2-5 cells HPF (0-1); Lymphocytes 10 % (21-51); Monocytes 16 % (0-10); Neutrophil 71 % (42-75); Platelet Adequacy Comment Platelets Normal; Poikilocytosis SLIGHT = 6-15 cells HPF (0-5); Polychromasia SLIGHT = 2-3 cells HPF (0-2)
[2024-05-18 13:36] VITALS: BP 135/79
== END 2024-05-18 15:44 | disposition home or self-care (01) | DRG 481 ==
LOC: ERS 06:01 → SURG A 10:14
PROVIDERS: ADMIT Specialist; ATTEND Specialist
PROC: 0QS704Z Reposition Left Upper Femur with Internal Fixation Device, Open Approach (ICD-10-PCS; principal; 2024-05-14)
PROC: 30233N1 Transfusion of Nonautologous Red Blood Cells into Peripheral Vein, Percutaneous Approach (ICD-10-PCS; 2024-05-16)
DX: S72.22XA Displaced subtrochanteric fracture of left femur, initial encounter for closed fracture (principal); D62 Acute posthemorrhagic anemia; E87.1 Hypo-osmolality and hyponatremia; N17.9 Acute kidney failure, unspecified; R00.0 Tachycardia, unspecified; W19.XXXA Unspecified fall, initial encounter; Y93.89 Activity, other specified; Y92.098 Other place in other non-institutional residence as the place of occurrence of the external cause; F31.9 Bipolar disorder, unspecified; G40.909 Epilepsy, unspecified, not intractable, without status epilepticus; F79 Unspecified intellectual disabilities; F63.81 Intermittent explosive disorder; E11.22 Type 2 diabetes mellitus with diabetic chronic kidney disease; I12.9 Hypertensive chronic kidney disease with stage 1 through stage 4 chronic kidney disease, or unspecified chronic kidney disease; E03.9 Hypothyroidism, unspecified; E11.65 Type 2 diabetes mellitus with hyperglycemia; D72.829 Elevated white blood cell count, unspecified; N18.2 Chronic kidney disease, stage 2 (mild); Z79.899 Other long term (current) drug therapy; Z79.4 Long term (current) use of insulin; Z79.84 Long term (current) use of oral hypoglycemic drugs; Z79.890 Hormone replacement therapy
CPT/HCPCS: 36415; 36416; 36430; 80048; 80053; 83930; 83935; 84300; 85025; 85610; 85730; 86850; 86900; 86901; 93005; 96374; C1713; G0390; J0171; J0665; J1100; J1815; J2272; J2405; J2704; J3010; J7030; P9040